=== PATIENT | female | born 1985 | race Caucasian/White ===

== ENCOUNTER → 2020-03-12 11:41 | Outpatient (CLI) | payer OTHER, SELFPAY ==
[2015-04-21 10:24] VITALS: BMI 21.2
[2020-03-12 16:01] LABS: Thyroid Stim Hormone (TSH) 1.56 uIU/mL (0.358-3.74)
== END ==
DX: E06.3 Autoimmune thyroiditis (principal)
CPT/HCPCS: 36415; 84443

== ENCOUNTER 2024-05-01 12:01 | Emergency (ER) | payer OTHER, SELFPAY ==
[2024-05-01 12:02] VITALS: BP 130/99; PULSE 109; RESP 18; TEMP 36.2; O2SAT 100; BMI 25.9
--- NOTE | 2024-05-01 13:28 | EKG12_ITS ---
Test Reason : CHEST TIGHTNESS Blood Pressure : */* mmHG Vent. Rate : 102 BPM Atrial Rate : 102 BPM P-R Int : 134 ms QRS Dur : 72 ms QT Int : 344 ms P-R-T Axes : 41 17 40 degrees QTcB Int : 448 ms Sinus tachycardia Otherwise normal ECG No previous ECGs available Confirmed by CALISTA SANCHEZ MD ([id number]), assignment desk editor RACHELLE MASON ([id number]) on 05/04/2024 11:13:58 AM Referred By: Confirmed By: CALISTA SANCHEZ MD
--- NOTE | 2024-05-01 13:40 | RAD_ITS ---
HISTORY: chest pain. TECHNIQUE: XR Chest 1 View. COMPARISON: 09/05/2009. FINDINGS: CARDIOMEDIASTINAL BORDERS: Cardiac silhouette within normal limits in size. Mediastinal contour unremarkable. LUNGS: Radiographically clear. PLEURA: No pleural effusion or pneumothorax seen. OSSEOUS STRUCTURES: Unremarkable. RAD/Chest 1 View (Portable) IMPRESSION: No acute cardiopulmonary process identified. Electronically Signed: Nereyda Sun MD at 14:09 EDT ,
[2024-05-01 13:50] LABS: Absolute Neutrophil Count 4.4 X10^3/uL (2.0-7.7); Basophil# 0.05 X10^3/uL; Basophil% 0.8 % (0-1); Eosinophil# 0.02 X10^3/uL; Eosinophils% 0.3 % (0-5); Hematocrit 39.7 % (37-47); Lymphocyte % 20.9 % (19-41); Mean Corp Hgb Conc 32.7 g/dL (32-36); Mean Corpuscular Hgb 29.5 pg (27.0-32.0); Mean Corpuscular Volume 90.2 fL (81-99); Mean Platelet Vol. 9.7 fl (6.2-12.0); Monocyte# 0.49 X10^3/uL; Monocyte% 7.9 % (0-10); NRBC Flagged by Analyzer 0 % (0-5); Neutrophil # 4.35 X10^3/uL (2.7-7.7); Neutrophil % 69.8 % (47-70); Platelet Count 222 K/mm3 (150-450); RBC Distribution Width CV 12.7 % (11.6-14.6); RBC Distribution Width SD 41.8 fl (35.1-43.9); White Blood Count 6.2 K/mm3 (4.4-11.0)
[2024-05-01 14:06] LABS: Anion Gap 7 (5-15); BUN 8 mg/dL (7-18); BUN/Creat Ratio 13.6 RATIO (10-20); Calcium,Total 9.2 mg/dL (8.5-10.1); Chloride 107 mmol/L (98-107); Creatinine, Serum 0.59 mg/dL (0.55-1.02); EST Glomerular Filtration Rate 122 mL/min (>60); Est Glom Filt Rate - Afr Amer 148 mL/min (>60); Estimated Creatinine Clearance 119.62 ml/min; Glucose 81 mg/dL (74-106); Potassium 3.8 mmol/L (3.5-5.1); Sodium Level 140 mmol/L (136-145); Troponin-I HS (w/2H Reflex) < 3 pg/mL (3.0-54.0)
[2024-05-01 14:38] VITALS: BP 129/84; PULSE 75; RESP 16; O2SAT 96
--- NOTE | 2024-05-01 14:38 | VDLE_ITS ---
Reason For Study: RLE PAIN RIGHT GSV is normal. CFV is compressible, spontaneous, phasic, competent and demonstrates normal augmentation. FV is compressible, spontaneous, phasic, competent and demonstrates normal augmentation. POP V is compressible, spontaneous, phasic, competent and demonstrates normal augmentation. T/P Trunk is compressible. PTV is compressible. RT PerV is compressible. Procedure This is a venous duplex using B-mode, color flow and spectral Doppler. Exam performed portable in ED. A preliminary report was called and/or faxed to Dr. Root @ 15:15. VL/Venous Duplex US, Unilateral Interpretation Summary Deep veins of the right lower extremity are patent and compressible segmentally . There is no evidence of right lower extremity deep vein thrombosis. The right great sapheno us vein appears patent and compressible segmentally. Ordering Physician: Baljinder Root Referring Physician: ISRRAEL PCP Performed By: Azalia Noe, STU, RVT
--- NOTE | 2024-05-01 14:39 | ED.VIS.CHEST ---
HPI History of Present Illness Chief Complaint: Chest Pain Informant: patient and spouse/S.O. Narrative Narrative: Substernal chest tightness dyspnea 11 AM while in meeting. She felt her heart racing. She was drinking a Celsius drink. She is drinking this before however not as frequent. She typically drinks coffee. No cough. No tobacco history. No history of similar. Also reporting right leg pain for the past week. Had similar symptoms with her chest pain today. Is going on throughout the day. No history of PE or DVT. She did go to [place] 3 months ago. Denies control. Last menstrual period 2 weeks ago. Medical history of hypothyroidism. Prior Similar Symptoms: No CVD Risk Factors: Negative for Hypertension, Diabetes, Hypercholesterolemia, Family History 1' </=55 or Smoking PE Risk Factors: Negative for Recent Immobilization, Prior DVT or PE or OCP + Smoking + >/=35 PFSH PFSH Home Medications ?Medication ?Instructions ?Recorded ?Last Taken ?Type etodolac 300 mg capsule 300 mg PO TIDCM ##30 04/21/15 Unknown Rx Allergy/AdvReac Type Severity Reaction Status Date / Time No Known Allergies Allergy Verified 05/01/24 12:02 Social History Smoking Status: Never smoker ROS ROS ED Constitutional Constitutional ED: Denies chills, fever(s) or sweats Eyes Eyes: Denies change in vision ENT ENT ED: Denies dysphagia or sore throat Cardiovascular Cardiovascular: Reports chest pain, palpitations and racing heartbeat; Denies leg edema Respiratory/Chest Respiratory/Chest: Reports dyspnea; Denies cough or dyspnea on exertion Gastrointestinal Gastrointestinal: Denies abdominal pain, diarrhea, nausea or vomiting Genitourinary Genitourinary ED: Denies dysuria, hematuria or urinary frequency Musculoskeletal Musculoskeletal: Reports extremity pain; Denies back pain or neck pain Integumentary Denies rash or wounds Neurologic Neurologic: Denies headache(s), paresthesias or weakness EXAM Physical Exam Const Vital Signs: 05/01/24 12:02 05/01/24 14:38 05/01/24 15:22 Temperature 97.2 F L Temperature Source Temporal Pulse Rate 109 H 75 77 Respiratory Rate 18 16 17 Blood Pressure 130/99 H 129/84 H 111/66 Blood Pressure Mean 109 99 81 Pulse Ox 100 96 95 Oxygen Delivery Method Room Air Room Air Room Air 05/01/24 15:46 Temperature 98.1 F Temperature Source Pulse Rate 67 Respiratory Rate 18 Blood Pressure 111/66 Blood Pressure Mean 81 Pulse Ox 100 Oxygen Delivery Method Positive well nourished and well developed General Appearance ED: well developed and NAD HEENT Reports moist mucous membranes normocephalic and atraumatic Eyes EOMs intact bilaterally and conjunctivae normal General Eye ED: Yes normal appearance of both eyes Neck no lymphadenopathy and supple General: Negative for tenderness Chest Wall Chest: Negative for tenderness Resp normal respiratory effort and normal air movement Effort and Inspection: symmetric chest movement; Negative for respiratory distress Cardio regular rate, regular rhythm and no murmurs Peripheral Pulses: pulses 2+ throughout GI normal to inspection, nondistended, normoactive bowel sounds and non-tender Palpation: Negative for guarding or rebound tenderness present Back/Spine no CVA tenderness and no thoracic nor lumbar tenderness Extremity normal to inspection Extremity Narrative: Mild tenderness to calf and popliteal on the right. No appreciable swelling noted. Pulses intact distally x 4. General Extremety ED: Yes tenderness; Negative for edema General Extremity: Negative for edema Neuro oriented x3 and no sensory deficits noted Sensorium / Orientation: awake and alert Skin no rashes or lesions noted and no wounds MDM MDM MDM Narrative Medical decision making narrative: Interventions / MDM: Differential diagnosis: Palpitations, atypical chest pain Diagnosis considered but do not suspect: Pulm embolus however D-dimer negative. DVT however ultrasound negative. My EKG interpretation: No ST changes isolated T wave flattening leads III. QTc 448. Imaging independently reviewed and interpreted by myself: 1 view chest x-ray: No acute process also read by radiology. Right lower extremity ultrasound: No acute process. External documents reviewed: N/A Test considered but not ordered:N/A ED course: Patient workup started from triage due to busy department. EKG sinus tachycardia has normal heart rate during my exam.She had cardiac labs with troponin returned less than 3. This is negative for ACS concerns per algorithm. However she is tachycardic on EKG she has right leg pain low risk Wells criteria for PE. I will add a D-dimer. Will obtain right lower extremity ultrasound for further evaluation D-dimer negative ultrasound right lower extremity negative. Remains symptom-free. Discussed decreasing caffeine intake as this can cause palpitations. She will follow-up with her PCP outpatient evaluation with return precautions. All questions are answered. Re-evaluation: stable Disposition discussed with patient/family/significant other: Patient and significant other Case discussed with consulting clinician: N/A This note was generated with [employer] dictation software. It may contain incorrect words, spelling, and punctuation that were not noted in checking the note before signing. Sinus 102, Lab Data Attestation: I reviewed the patient's lab results. Labs: Laboratory Results - last 24 hr 05/01/24 05/01/24 13:30 13:35 WBC 6.2 RBC 4.40 Hgb 13.0 Hct 39.7 MCV 90.2 MCH 29.5 MCHC 32.7 RDW Std Deviation 41.8 RDW Coeff of Tess 12.7 Plt Count 222 MPV 9.7 Immature Gran % (Auto) 0.300 Neut % (Auto) 69.8 Lymph % (Auto) 20.9 [place] % (Auto) 7.9 Eos % (Auto) 0.3 Baso % (Auto) 0.8 Absolute Neuts (auto) 4.4 Absolute Lymphs (auto) 1.30 Nucleated RBC % 0 D-Dimer Quant (PE/DVT) < 0.27 L Sodium 140 Potassium 3.8 Chloride 107 Carbon Dioxide 25.0 Anion Gap 7 BUN 8 Creatinine 0.59 Estim Creat Clear Calc 119.62 Est GFR (MDRD) Af Amer 148 Est GFR (MDRD) Non-Af 122 BUN/Creatinine Ratio 13.6 Glucose 81 Calcium 9.2 Troponin I High Sens < 3 L Radiography Diagnostic Testing: Clinical Impression(s) from Imaging Studies Chest X-Ray 05/01/24 13:40 IMPRESSION: No acute cardiopulmonary process identified. Electronically Signed: Nereyda Sun MD at 14:09 EDT , Venous Doppler Study 05/01/24 14:38 Interpretation Summary Deep veins of the right lower extremity are patent and compressible segmentally. There is no evidence of right lower extremity deep vein thrombosis. The right great saphenous vein appears patent and compressible segmentally. Ordering Physician: Baljinder Root Referring Physician: ISRRAEL PCP Performed By: Azalia Noe RDCS, RVT Discharge Plan Triage Chief Complaint: Chest Pain Other Complaint: Lower Extremity Injury ED Provider: Baljinder Root Dx/Rx/DC Orders Clinical Impression: Chest pain, Palpitations, Pain in right leg Instructions: ED Chest Pain, Uncertain Cause Prescriptions: No Action etodolac 300 MG capsule 300 mg PO TIDCM Qty: 30 0RF Rx Instructions: with food Primary Care Provider: [facility] Referrals: [facility] [Other] - 3-5 Days Activity Restrictions/Additional Instructions: Cardiac workup negative your D-dimer negative. Right leg ultrasound negative for blood clots. Decrease caffeine use as this can cause palpitations. Monitor symptoms. If any worsening symptoms or returns, return to ED for reevaluation. Otherwise follow-up your doctor for further testing as an outpatient as needed. Print Language: Urdu Disposition Disposition: Home, Self Care Discharge Date/Time: 05/01/24 15:47
[2024-05-01 14:57] LABS: D-Dimer Quantitative (DVT/PE) < 0.27 FEU/ug/m (0.27-0.49)
[2024-05-01 15:22] VITALS: BP 111/66; PULSE 77; RESP 17; O2SAT 95
[2024-05-01 15:45] LABS: Reflex Troponin-HS? (from REC) Y
[2024-05-01 15:46] VITALS: BP 111/66; PULSE 67; RESP 18; TEMP 36.7; O2SAT 100
== END 2024-05-01 15:47 | disposition home or self-care (01) ==
PROVIDERS: Emergency Provider Emergency Medicine; Visit Provider Emergency Medicine
DX: R07.89 Other chest pain (principal); R00.2 Palpitations; M79.604 Pain in right leg; E03.9 Hypothyroidism, unspecified
CPT/HCPCS: 71045; 80048; 84484; 85025; 85379; 93005; 93971; 99285; A4216

== ENCOUNTER → 2024-11-01 | Outpatient (CLI) | payer OTHER, SELFPAY ==
[2024-11-01 16:50] LABS: Absolute Lymphocyte Count 2.44 X10^3/uL (0.83-4.51); Absolute Neutrophil Count 5.3 X10^3/uL (2.0-7.7); Basophil# 0.05 X10^3/uL; Basophil% 0.6 % (0-1); Eosinophil# 0.15 X10^3/uL; Eosinophils% 1.7 % (0-5); Hematocrit 39.3 % (37-47); Hemoglobin 13.3 g/dL (12.0-15.0); Lymphocyte # 2.44 X10^3/ul (0.83-4.51); Lymphocyte % 27.8 % (19-41); Mean Corp Hgb Conc 33.8 g/dL (32-36); Mean Corpuscular Hgb 29.9 pg (27.0-32.0); Mean Corpuscular Volume 88.3 fL (81-99); Mean Platelet Vol. 9.8 fl (6.2-12.0); Monocyte# 0.79 X10^3/uL; NRBC Flagged by Analyzer 0 % (0-5); Neutrophil # 5.32 X10^3/uL (2.7-7.7); Neutrophil % 60.6 % (47-70); Platelet Count 294 K/mm3 (150-450); RBC Distribution Width CV 12.3 % (11.6-14.6); RBC Distribution Width SD 40.1 fl (35.1-43.9); Red Blood Count 4.45 M/mm3 (4.2-5.4); White Blood Count 8.8 K/mm3 (4.4-11.0)
[2024-11-01 17:43] LABS: ALB/GLOB Ratio 1.5 RATIO (0.9-2.4); AST(SGOT) 19 U/L (<=31); Alanine Aminotransfer ALT/SGPT 16 U/L (<=34); Albumin, Serum 4.6 g/dL (3.5-5.0); Alkaline Phosphatase 71 U/L (35-104); Anion Gap 11 (5-15); BUN 15 mg/dL (4-19); BUN/Creat Ratio 21.3 RATIO (10-20); Calcium,Total 9.5 mg/dL (7.6-11.0); Carbon Dioxide 23.6 mmol/L (21.0-32.0); Chloride 106 mmol/L (98-108); Creatinine, Serum 0.69 mg/dL (0.70-1.20); EST Glomerular Filtration Rate 115 (>60); Glucose 94 mg/dL (70-99); Potassium 3.8 mmol/L (3.3-5.1); Protein, Total 7.6 g/dL (5.9-8.4); Sodium Level 140 mmol/L (133-145); Total Bilirubin 0.18 mg/dL (0.00-1.30)
== END | disposition home or self-care (01) ==
LOC: LAB 16:03
PROVIDERS: PCP Internal Medicine; Referring Provider Student in an Organized Health Care Education/Training Program; Visit Provider Student in an Organized Health Care Education/Training Program
DX: R14.0 Abdominal distension (gaseous) (principal); R10.9 Unspecified abdominal pain
CPT/HCPCS: 36415; 80053; 82784; 83516; 85025; 86255

== ENCOUNTER 2024-12-27 10:50 | Day surgery (SDC) | payer OTHER, SELFPAY ==
[2024-12-27] VITALS (8 sets, daily range): BP systolic 92–118; BP diastolic 63–70; PULSE 65–93; RESP 16; TEMP 23.8–36.9; O2SAT 97–100; BMI 24.5
[2024-12-27 11:15] LABS: Internal QC Validated? YES +Cl - CLEAR BKGD; Pregnancy, Urine Negative Negative
[2024-12-27] MEDS: Lactated Ringers 1,000 ML 15 ML IV (11:32)
--- NOTE | 2024-12-27 11:40 | PCM.HP.STD ---
[facility] - General General Date of Admission: 12/27/24 Date of Service: 12/27/24 Chief Complaint: abdominal pain and bloating [facility] Narrative VIRGINIA BRODERICK, is a 39 F who presents with the Chief Complaint: abd bloating Over the past 6 months patient has noticed abd bloating. This started out just after a meal but now she has bloating all the time. She has not noticed any specific triggering foods. She also endorses heartburn during but night but does not take PPI. On occasion she will wake up with nausea. She has a family hx of celiac disease in her younger sister. Pt father was diagnosed with colon cancer about two years ago at age 59. He had colectomy and is now undergoing chemotherapy. Pt has never had a colonoscopy. She denies constipation, diarrhea or blood in her stool. [facility] Medical History Wears contact lenses Depression Anxiety Marijuana use Alcohol use Thyroid disease Low iron Migraine headache Heartburn Non-smoker Home Medications ?Medication ?Instructions ?Recorded ?Last Taken ?Type levothyroxine 100 mcg tablet 100 mcg PO QHS 12/25/24 12/25/24 History (Synthroid) sertraline 50 mg tablet 50 mg PO QHS 12/25/24 12/25/24 History Allergy/AdvReac Type Severity Reaction Status Date / Time No Known Allergies Allergy Verified 12/27/24 11:26 Surgical History Hx of oral surgery Social History Smoking Status: Never smoker ROS Constitutional Constitutional: Denies fatigue, fever(s), poor appetite, weight gain or weight loss Gastrointestinal Gastrointestinal: Denies belching, bloating, change in bowel habits, change in stool character, chewing difficulty, coffee ground emesis, constipation, cramping, diarrhea, dyspepsia, dysphagia, early satiety, excessive flatus, fecal incontinence, heartburn, hematemesis, hematochezia, hemorrhoids, loose stools, melena, nausea, odynophagia, rectal bleeding, tenesmus, vomiting or weight changes Vital Signs Vital Signs Vital Signs: 12/27/24 11:27 12/27/24 11:27 Temperature 98.5 F Temperature Source Temporal Pulse Rate 89 Respiratory Rate 16 Respiratory Pattern Normal Blood Pressure 118/70 Blood Pressure Mean 86 Blood Pressure Source Monitor Blood Pressure Position Sitting Blood Pressure Location Left Arm Pulse Ox 99 Oxygen Delivery Method Room Air Weight Weight: 138 lb 14.259 oz Body Mass Index (BMI) 24.5 Physical Exam Const alert, oriented x3, no apparent distress and healthy appearing General Appearance: cooperative GI normal to inspection, nondistended, normoactive bowel sounds, soft to palpation, non-tender and non-distended Percussion: normal to percussion Rectal Exam: deferred Results Lab / Micro Data Labs: Laboratory Results - last 24 hr 12/27/24 11:00: Urine Test Negative Assessment & Plan Assessment/Plan (1) Abdominal pain: (2) Bloating: PLAN: Assessment and Plan Assessment and Plan (1) Bloating: Status: Acute Plan: This is a 39 yo female pt here today for evaluation of bloating and abd pain. Pt started to notice these symptoms after eating about 6 months ago and since then it has progressed to her being bloated daily. She has heartburn on a regular basis typically in the evening. She denies constipation, diarrhea, blood in her stool or unintentional weight loss. She endorses a family hx of both celiac disease (sister) and colon cancer (father age 59). Due to her family hx and symptoms she will undergo EGD and colonoscopy. I have concern for celiac disease or inflammation in her upper GI tract. I will also order celiac panel, CBC and CMP. Pt agreeable to plan. -EGD and colonoscopy -Celiac panel -f/u after procures (2) Abdominal pain: Status: Acute Orders: Orders Celiac Disease Profile Today R10.9 - Unspecified abdominal pain, R14.0 - Abdominal distension (gaseous) CBC W/Diff, Automated Today R10.9 - Unspecified abdominal pain, R14.0 - Abdominal distension (gaseous) Comprehensive Metabolic Profil Today R10.9 - Unspecified abdominal pain, R14.0 - Abdominal distension (gaseous)
--- NOTE | 2024-12-27 11:58 | PCM.PRE.AN2 ---
ASA Classification* ASA Classification ASA Classification: 2 Assessment & Plan Anesthesia* Anesthesia Assessment Anesthesia Assessment: Discussed sedation and/or anesthesia options, risks, benefits, and alternatives with patient/parents/legal guardian/POA. Questions invited. The patient/parents/legal guardian/POA seems to understand and agrees to proceed with anesthesia plan. Reviewed the physical assessment, medical history, allergy history and patient home medications list prior to surgery/procedure/anesthetic and documented any changes. Performed airway and anesthesia risk assessments. Anesthesia Type Anesthesia Type: MAC History Source History Obtained from:: Patient and Chart Anesthesia Focused Assessment* Temperature: 98.5 F Pulse Rate: 89 Blood Pressure: 118/70 Respiratory Rate: 16 Pulse Ox: 99 Oxygen Delivery Method: Room Air Airway Assessment Mouth opens: >3 cm Mallampati Score: IV Teeth Condition: Chipped/Broken (Top right tooth is chipped.) and Missing (Patient is missing tooth left lower jaw.) Neck Range of motion (ROM): Full ROM Labs Anesthesia Preop lab: CBC WBC 8.8 K/mm3 (4.4-11.0) 11/01/24 16:16 11/01/24 RBC 4.45 M/mm3 (4.2-5.4) 11/01/24 16:16 11/01/24 Hgb 13.3 g/dL (12.0-15.0) 11/01/24 16:16 11/01/24 Hct 39.3 % (37-47) 11/01/24 16:16 11/01/24 Plt Count 294 K/mm3 (150-450) 11/01/24 16:16 11/01/24 CHEMISTRY Potassium 3.8 mmol/L (3.3-5.1) 11/01/24 16:16 11/01/24 Sodium 140 mmol/L (133-145) 11/01/24 16:16 11/01/24 BUN 15 mg/dL (4-19) 11/01/24 16:16 11/01/24 Creatinine 0.69 mg/dL (0.70-1.20) L 11/01/24 16:16 11/01/24 Glucose 94 mg/dL (70-99) 11/01/24 16:16 11/01/24 TSH 1.56 uIU/mL (0.358-3.74) 03/12/20 11:55 03/12/20 COAG Urine Test Negative Negative 12/27/24 11:00 12/27/24 Pre-Assessment Diagnosis/Proposed Procedure Planned Operative Procedure(s): EGD/CSCOPE Anesthesia History Anesthesia History - graduate advisor: Anesthesia History - graduate advisor Hx Hospitalization No 12/25/24 15:07 Any Problems With Anesthesia No 12/25/24 15:07 Cholinesterase deficiency No 12/25/24 15:07 You/Your Family Experience No 12/25/24 15:07 fever (hyperthermia) with Relationship Recent Exposure to Contagious No 12/27/24 11:27 Disease Does patient have nerve No 12/25/24 15:07 stimulator Patient instructed to have device shut off --Does patient have Pacemaker No 12/27/24 11:27 or ICD? When Was Last Pacemaker Check QUESTION #4 FULL TEXT: You/Your Family Experience fever (hyperthermia) with Anesthesia Last Oral Intake Last Oral intake: Last Oral Intake NPO since 09:00 12/27/24 11:27 Meds taken in AM with sips of No 12/27/24 11:27 water? Meds patient instructed to take am of surgery Any additional information?: Yes NPO since: 09:00 (Patient finished prep at 9 AM. Along with some water.) Meds taken in AM with sips of water?: No PONV PONV - graduate advisor: PONV - graduate advisor Female Yes 12/25/24 15:07 HX of Motion Sickness No 12/25/24 15:07 HX of N/V After Surgery No 12/25/24 15:07 Non-Smoker No 12/25/24 15:07 Duration of Surgery greater No 12/25/24 15:07 than 60 minutes Number of Risk Factors 1 12/25/24 15:07 PONV Score Low Risk 12/25/24 15:07 Height & Weight Height & Weight: Anesthesia: Height & Weight Height 5 ft 3 in 12/27/24 11:27 Weight: 63 kg 12/27/24 11:27 Body Mass Index (BMI) 24.5 12/27/24 11:27 Respiratory Assessment Respiratory Assessment - graduate advisor: Respiratory Tract Infection Hx - graduate advisor Hx Respiratory Tract Infection No 12/25/24 15:07 STOP Sleep Apnea STOP Sleep Apnea - graduate advisor: STOP Sleep Apnea - graduate advisor Hx Hypertension No 12/25/24 15:07 Hx Sleep Apnea No 12/25/24 15:07 CPAP BIPAP Do you snore loudly (louder No 12/25/24 15:07 than talking or can be heard Do you often feel tired/ Yes 12/25/24 15:07 fatigued/ sleepy during daytime? Has anyone observed you stop No 12/25/24 15:07 breathing during sleep? STOP Results Negative 12/25/24 15:07 QUESTION #5 FULL TEXT : Do you snore loudly (louder than talking or can be heard through closed doors)? 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 Specify any problems Hx of Preganancy in last 3 No 12/25/24 15:07 Months Nurse Filling Out Transfusion DSCHRIBER 12/25/24 15:07 & Questions: Date: 12/25/24 12/25/24 15:07 Time: 15:08 12/25/24 15:07 Patient unable to answer at this time (ie. confused, unrespo /Reproduction History /Reproductive History - graduate advisor: /Reproductive Hx- graduate advisor Hx Now No 12/25/24 15:07 Gestational Age (in weeks): EDC: Hx Hx Para Hx Section SAB No 12/25/24 15:07 Active Medications Active Medications: Current Medications Generic Name Dose Route Start Last Admin Trade Name Freq PRN Reason Stop Dose Admin Lactated Ringer's 1,000 mls @ 15 mls/hr 12/27/24 11:15 12/27/24 11:32 IV 15 mls/hr .Q48H BRITTANY Administration PFSH Medical History Wears contact lenses Depression Anxiety Marijuana use Alcohol use Thyroid disease Low iron Migraine headache Heartburn Non-smoker Home Medications ?Medication ?Instructions ?Recorded ?Last Taken ?Type levothyroxine 100 mcg tablet 100 mcg PO QHS 12/25/24 12/25/24 History (Synthroid) sertraline 50 mg tablet 50 mg PO QHS 12/25/24 12/25/24 History Allergy/AdvReac Type Severity Reaction Status Date / Time No Known Allergies Allergy Verified 12/27/24 11:26 Surgical History Hx of oral surgery Social History Smoking Status: Never smoker Review of Systems (Anesthesia) ROS Narrative System reviewed and no additional complaints, except as documented.
--- NOTE | 2024-12-27 12:00 | EGD_PTH ---
PATIENT: VIRGINIA BRODERICK LOC: EN U#:[id number] AGE/SX: 39/F ROOM: RE12/27/[address]: Dr. Gabriel Meyer DO : 1985 BED: DIS: 12/27/2024 SPEC #: [id number] RECD: 12/27/24 13:15 STATUS: MIGUELINA YOUNG #: [id number] ROSALINA: 12/27/24 12:[address]: Gabriel Meyer DEPT: SURGICAL PATHOLOGY RECD BY: Yayo Banda ENTERED: 12/27/24 13:51 SP TYPE: EGD BIOPSY ALBA DR: Dr. Wily Garsia MD Tissues: A - Duodenum, NOS B - Gastric mucous membrane C - Gastric mucous membrane D - Ileum, NOS E - COLON BIOPSY Procedures: Surgery Specimen Level IV HEADER OPERATION: Colonoscopy with biopsy, EGD with biopsy PRE-OP DIAGNOSIS: Abdominal pain and bloating TISSUE SUBMITTED: A- Duodenum biopsy, B- Gastric body biopsy, C- Gastric antrum biopsy, D- Terminal ileum biopsy, E- Random colon biopsy MICROSCOPIC DIAGNOSIS A. Duodenum, biopsy: - Normal villous architecture with Ronnie gland hyperplasia. - Negative for increased intraepithelial lymphocytes. B. Gastric body, biopsy: - Oxyntic mucosa with no specific pathologic change. - Negative for Helicobacter-like organisms (H&E). C. Gastric antrum, biopsy: - Antral and oxyntic mucosa with features of reactive gastropathy. -- Negative for Helicobacter-like organisms (H&E). D. Terminal ileum, biopsy: - No specific pathologic change. E. Colon, random biopsy: - No specific pathologic change. MICROSCOPIC DESCRIPTION Slides are reviewed. GROSS DESCRIPTION A. Received in fixative is one container labeled with the patient's name and designated Duodenum biopsy. The specimen consists of one irregular fragment of light muñoz soft tissue that measures 0.5 cm. The specimen is totally submitted in one cassette. B. Received in fixative is one container labeled with the patient's name and designated Gastric body biopsy. The specimen consists of three irregular fragments of light muñoz soft tissue that in aggregate measure <0.1 to 0.4 cm. The specimen is totally submitted in one cassette. C. Received in fixative is one container labeled with the patient's name and designated Gastric antrum biopsy. The specimen consists of two irregular fragments of light muñoz soft tissue that in aggregate measure 0.3 and 0.5 cm. The specimen is totally submitted in one cassette. D. Received in fixative is one container labeled with the patient's name and designated Terminal ileum biopsy. The specimen consists of three irregular fragments of light muñoz soft tissue that in aggregate measure 0.3 to 0.4 cm. The specimen is totally submitted in one cassette. E. Received in fixative is one container labeled with the patient's name and designated Random colon biopsy. The specimen consists of two irregular fragments of light muñoz soft tissue that in aggregate measure 0.4 and 0.5 cm. The specimen is totally submitted in one cassette. 12/27/2024 CPT:59905b3
--- NOTE | 2024-12-27 13:00 | PCM.POST.ANE ---
Anesthesia: Postop Eval I Current Vital Signs Temperature: 97.8 F Pulse Rate: 70 Blood Pressure: 96/67 Respiratory Rate: 16 Pulse Ox: 97 Assessment Airway patent: Yes Spontaneous unlabored respirations: Yes nausea: No Vomiting: No Anesthesia Complication: No Fluid Hydration Crystalloid volume administer (ml): 300 Total IV fluid infused: 300 Progress Note Anesthesia document: Postop Eval 1 completed: Yes
--- NOTE | 2024-12-27 13:01 | OP.CCLET_ITS ---
12/27/2024 Wily Garsia Md Re : Upper GI endoscopy procedure for Darling Jones Dear Dr. Garsia This procedure was performed on December. My impressions and recommendations are as follows: Impressions : - Normal esophagus. - Erythematous mucosa in the gastric body and antrum. Biopsied. - Erythematous duodenopathy. Biopsied. Recommendations : - Discharge patient to home. - Resume previous diet. - Continue present medications. - Await pathology results. My findings are described in the full procedure note, which is enclosed. If I can be of further assistance, please feel free to contact me at . Sincerely, Gabriel Meyer, 12/27/2024 1:01:08 PM This report has been signed electronically.
--- NOTE | 2024-12-27 13:01 | OP.EGD_ITS ---
Patient Name: Darling Jones Procedure Date: 12/27/2024 12:28 PM Date of : 1985 Age: 39 Procedure: Upper GI endoscopy Indications: Epigastric abdominal pain Providers: Gabriel Meyer DO Medicines: Monitored Anesthesia Care Patient Profile: This is a 39 year old female. Refer to note in patient chart for documentation of history and physical. Patient has symptoms of chronic abdominal cramping, chronic epigastric abdominal pain, chronic dyspepsia and chronic nausea. Complications: No immediate complications. Procedure: Pre-Anesthesia Assessment: - Prior to the procedure, a History and Physical was performed, and patient medications and allergies were reviewed. The patient is competent. The risks and benefits of the procedure and the sedation options and risks were discussed with the patient. All questions were answered and informed consent was obtained. Patient identification and proposed procedure were verified by the physician in the pre-procedure area. Mental Status Examination: alert and oriented. Airway Examination: normal oropharyngeal airway and neck mobility. Respiratory Examination: clear to auscultation. CV Examination: normal. Prophylactic Antibiotics: The patient does not require prophylactic antibiotics. Prior Anticoagulants: The patient has taken no anticoagulant or antiplatelet agents except for NSAID medication. ASA Grade Assessment: II - A patient with mild systemic disease. After reviewing the risks and benefits, the patient was deemed in satisfactory condition to undergo the procedure. The anesthesia plan was to use monitored anesthesia care (MAC). Immediately prior to administration of medications, the patient was re-assessed for adequacy to receive sedatives. The heart rate, respiratory rate, oxygen saturations, blood pressure, adequacy of pulmonary ventilation, and response to care were monitored throughout the procedure. The physical status of the patient was re-assessed after the procedure. After obtaining informed consent, the endoscope was passed under direct vision. Throughout the procedure, the patient's blood pressure, pulse, and oxygen saturations were monitored continuously. The colonoscope was introduced through the mouth, and advanced to the fourth part of the duodenum. Small bowel enteroscopy was deemed necessary. The upper GI endoscopy was accomplished without difficulty. The patient tolerated the procedure well. Scope In: 12:36:56 PM Scope Out: 12:41:14 PM Total Procedure Duration Time 0 hours 4 minutes 18 seconds Findings: The examined esophagus was normal. Patchy mildly erythematous mucosa without bleeding was found in the gastric body and in the gastric antrum. Biopsies were taken with a cold forceps for histology. Verification of patient identification for the specimen was done. Estimated blood loss was minimal. Patchy mildly erythematous mucosa without active bleeding and with no stigmata of bleeding was found in the first portion of the duodenum, in the second portion of the duodenum and in the third portion of the duodenum. Biopsies were taken with a cold forceps for histology. Verification of patient identification for the specimen was done. Estimated blood loss was minimal. Impression: - Normal esophagus. - Erythematous mucosa in the gastric body and antrum. Biopsied. - Erythematous duodenopathy. Biopsied. Recommendation: - Discharge patient to home. - Resume previous diet. - Continue present medications. - Await pathology results. Procedure Code(s): --- Professional --- 35002, Small intestinal endoscopy, enteroscopy beyond second portion of duodenum, not including ileum; with biopsy, single or multiple CPT copyright 2021 [employer]. All rights reserved. The codes documented in this report are preliminary and upon remote medical coder review may be revised to meet current compliance requirements. Gabriel Meyer DO 12/27/2024 1:01:08 PM This report has been signed electronically. Number of Addenda: 0 Note Initiated On: 12/27/2024 12:28 PM
--- NOTE | 2024-12-27 13:04 | OP.CCLET_ITS ---
12/27/2024 Wily Garsia Md Re : Colonoscopy procedure for Darling Jones Dear Dr. Garsia This procedure was performed on December. My impressions and recommendations are as follows: Impressions : - Congested mucosa in the recto-sigmoid colon, in the sigmoid colon and in the ascending colon. Biopsied. - Congested mucosa in the terminal ileum. Biopsied. Recommendations : - Discharge patient to home. - Resume previous diet. - Continue present medications. - Await pathology results. - Repeat colonoscopy is recommended. The colonoscopy date will be determined after pathology results from today's exam become available for review. My findings are described in the full procedure note, which is enclosed. If I can be of further assistance, please feel free to contact me at . Sincerely, Gabriel Meyer, 12/27/2024 1:04:10 PM This report has been signed electronically.
--- NOTE | 2024-12-27 13:04 | OP.COLON_ITS ---
Patient Name: Darling Jones Procedure Date: 12/27/2024 12:41 PM Date of : 1985 Age: 39 Procedure: Colonoscopy Indications: Generalized abdominal pain, Clinically significant diarrhea of unexplained origin, Suspected irritable bowel syndrome, Mixed irritable bowel syndrome Providers: Gabriel Meyer DO Medicines: Monitored Anesthesia Care Patient Profile: This is a 39 year old female. Refer to note in patient chart for documentation of history and physical. Patient has symptoms of chronic abdominal cramping, chronic epigastric abdominal pain, chronic dyspepsia and chronic nausea. Last Colonoscopy: none. The patient's first colonoscopy is today. Complications: No immediate complications. Procedure: Pre-Anesthesia Assessment: - Prior to the procedure, a History and Physical was performed, and patient medications and allergies were reviewed. The patient is competent. The risks and benefits of the procedure and the sedation options and risks were discussed with the patient. All questions were answered and informed consent was obtained. Patient identification and proposed procedure were verified by the physician in the pre-procedure area. Mental Status Examination: alert and oriented. Airway Examination: normal oropharyngeal airway and neck mobility. Respiratory Examination: clear to auscultation. CV Examination: normal. Prophylactic Antibiotics: The patient does not require prophylactic antibiotics. Prior Anticoagulants: The patient has taken no anticoagulant or antiplatelet agents except for NSAID medication. ASA Grade Assessment: II - A patient with mild systemic disease. After reviewing the risks and benefits, the patient was deemed in satisfactory condition to undergo the procedure. The anesthesia plan was to use monitored anesthesia care (MAC). Immediately prior to administration of medications, the patient was re-assessed for adequacy to receive sedatives. The heart rate, respiratory rate, oxygen saturations, blood pressure, adequacy of pulmonary ventilation, and response to care were monitored throughout the procedure. The physical status of the patient was re-assessed after the procedure. After I obtained informed consent, the scope was passed under direct vision. Throughout the procedure, the patient's blood pressure, pulse, and oxygen saturations were monitored continuously. The colonoscope was introduced through the anus and advanced to the terminal ileum. The colonoscopy was performed without difficulty. The patient tolerated the procedure well. The quality of the bowel preparation was adequate. The terminal ileum, ileocecal valve, appendiceal orifice, and rectum were photographed. Scope In: 12:42:17 PM Scope Withdrawal Time 0 hours 8 minutes 26 seconds Scope Out: 12:53:44 PM Total Procedure Duration Time 0 hours 11 minutes 27 seconds Findings: The perianal and digital rectal examinations were normal. An area of mildly congested mucosa was found in the recto-sigmoid colon, in the sigmoid colon and in the ascending colon. Biopsies were taken with a cold forceps for histology. Verification of patient identification for the specimen was done. Estimated blood loss was minimal. A patchy area of the terminal ileum was congested. Biopsies were taken with a cold forceps for histology. Verification of patient identification for the specimen was done. Estimated blood loss was minimal. Impression: - Congested mucosa in the recto-sigmoid colon, in the sigmoid colon and in the ascending colon. Biopsied. - Congested mucosa in the terminal ileum. Biopsied. Recommendation: - Discharge patient to home. - Resume previous diet. - Continue present medications. - Await pathology results. - Repeat colonoscopy is recommended. The colonoscopy date will be determined after pathology results from today's exam become available for review. Procedure Code(s): --- Professional --- 83482, Colonoscopy, flexible; with biopsy, single or multiple CPT copyright 2021 [employer]. All rights reserved. The codes documented in this report are preliminary and upon leadership development consultant review may be revised to meet current compliance requirements. Gabriel Meyer DO 12/27/2024 1:04:10 PM This report has been signed electronically. Number of Addenda: 0 Note Initiated On: 12/27/2024 12:41 PM
--- NOTE | 2024-12-27 18:09 | POSTOPAN2_ITS ---
Anesthesia Postop Eval I Sum Postop Eval Completion status Anesthesia document: Postop Eval 1 completed: Yes Anesthesia Postop Eval I Summary Anesthesia Postop Eval I Summary: Anesthesia Postop Eval I: Assessment Summary Airway patent Yes 12/27/24 13:00 EYE GLASS [email or web address] Spontaneous unlabored Yes 12/27/24 13:00 EYE GLASS [email or web address] respirations Mental status nausea No 12/27/24 13:00 EYE GLASS [email or web address] Vomiting No 12/27/24 13:00 EYE GLASS [email or web address] Anesthesia Postop Eval I: Fluid Summary Crystalloid volume administer 300 12/27/24 13:00 EYE GLASS [email or web address] (ml) Colloids volume administered ( ml) Blood Product volume administered (ml) Total IV fluid infused 300 12/27/24 13:00 EYE GLASS [email or web address] Anesthesia Postop Eval I: Summary Notes Anesthesia Complication No 12/27/24 13:00 EYE GLASS [email or web address] Anesthesia Complication Comment: Post-operative progress note Anesthesia: Postop Eval II Evaluation Mental status: Awake Pain Level: 0 nausea: No Vomiting: No
--- NOTE | 2024-12-27 18:09 | PCM.POSTANE2 ---
Anesthesia Postop Eval I Sum Postop Eval Completion status Anesthesia document: Postop Eval 1 completed: Yes Anesthesia Postop Eval I Summary Anesthesia Postop Eval I Summary: Anesthesia Postop Eval I: Assessment Summary Airway patent Yes 12/27/24 13:00 AUTOMOTIVE SALES [email or web address] Spontaneous unlabored Yes 12/27/24 13:00 [employer]OMOTIVE SALES [email or web address] respirations Mental status nausea No 12/27/24 13:00 AUTOMOTIVE SALES [email or web address] Vomiting No 12/27/24 13:00 AUTOMOTIVE SALES [email or web address] Anesthesia Postop Eval I: Fluid Summary Crystalloid volume administer 300 12/27/24 13:00 AUTOMOTIVE SALES [email or web address] (ml) Colloids volume administered ( ml) Blood Product volume administered (ml) Total IV fluid infused 300 12/27/24 13:00 AUTOMOTIVE SALES [email or web address] Anesthesia Postop Eval I: Summary Notes Anesthesia Complication No 12/27/24 13:00 AUTOMOTIVE SALES [email or web address] Anesthesia Complication Comment: Post-operative progress note Anesthesia: Postop Eval II Evaluation Mental status: Awake Pain Level: 0 nausea: No Vomiting: No
--- OUTSIDE RECORDS SUMMARY | 2024-12-27 21:15 | XMS RPT_ITS | CCD ---
Author Organization [facility] Care Team Providers Care Lockstitch Front Maker Name Role Phone Fercho Lane Unavailable Unavailable Unavailable Unavailable Unavailable Fercho Lane Referring Unavailable Fercho Lane Attending Unavailable Fercho Lane Primary Care Unavailable Elizabetha, Fercho Watkins Primary Care Unavailable Fercho Lane Referring Unavailable Fercho Lane Attending Unavailable Roldan FELICIANO, Rhiannon Samayoa Primary Care Provider Fercho Lane MD Primary Care Provider [phone] MD Unavailable PARAM, RHIANNON Referring Unavailable ROLDAN, RHIANNON SAMAYOA Primary Care Unavailabl e ROLDAN, RHIANNON DANITA Primary Care Unavailabl e PARAM, RHIANNON Referring Unavailable PARAM, RHIANNON Attending Unavailable ROLDAN, RHIANNON SAMAYOA Primary Care Unavailabl e PARAM, RHIANNON Attending Unavailable ROLDAN, RHIANNON SAMAYOA Primary Care Unavailabl e DOMINGO, FERCHO D Attending Unavailable ELIZABETHAFERCHO Primary Care Unavailable FERCHO LANE MD Attending Unavailable FERCHO LANE MD Primary Care Unavailable FERCHO LANE Referring Unavailable ELIZABETHA, FERCHO Watkins Primary Care Unavailable Fercho Lane MD Primary Care Provider Fercho Lane Referring Unavailable Friend, Gabriel Attending Unavailable Munlucilaa, Valjohnie Primary Care Unavailable Munlucilaa, Valji Primary Care Unavailable Chandrika Uriostegui Attending Unavailable Chandrika Uriostegui Referring Unavailable ARNEL MENCHACA Primary Care Unavailable Baljinder Root Attending Unavailable Chandrika Uriostegui Attending Unavailable Baljinder Root Referring Unavailable Darrion Brady Attending Unavailable Chandrika Solis Attending Provider Dr. Fercho Lane MD Primary Care Provider [phone] Chandrika Solis Referring Provider Dr. Fercho Lane MD Referring Provider Friend Dr. Gabriel RAM Attending Provider Friend Dr. Gabriel RAM Other Provider Medications Current Medications Medication Drug Class(es) Dates Sig (Normalized) Sig (Original) azithromycin 250 mg oral tablet (2 sources) Macrolide Antimicrobial Start: 10-25-2022 End: 10-30-2022 azithromycin (Zithromax) 250 mg tablet Indications: Sinusitis, unspecified chronicity, unspecified location Take 2 tablets (500 mg) by mouth once daily for 1 day, THEN 1 tablet (250 mg) once daily for 4 days. Take 2 tabs (500 mg) by mouth today, than 1 daily for 4 days.. 6 tablet 0 10/25/2022 10/30/2022 Active Start: 05-31-2022 Azithromycin 2 50 MG Oral Tablet TAKE DIRECTED. Quantity: 1 Refills: 0 Ordered: 31-May-[address] MD Start : 31-May-2022 Active DULoxetine 30 mg delayed release oral capsule (1 source) Serotonin and Norepinephrine Reuptake Inhibitor Start: 10-25-2022 take 1 capsule by mouth once daily DULoxetine (Cymbalta) [address] capsule Indications: Moderate episode of recurrent major depressive disorder (CMS/HCC) Take 1 capsule (30 mg) by mouth once daily. Do not crush or chew. 90 capsule 1 10/25/2022 Active Start: 10-25-2022 take 1 capsule by mo uth once daily DULoxetine (Cymbalta) [address] capsule Indications: Moderate episode of recurrent major depressive disorder (CMS/HCC) Take 1 capsule (30 mg) by mouth once daily. Do not crush or chew. 90 capsule 1 10/25/2022 Active levothyroxine sodium 0.1 mg oral tablet (20 sources) l-Thyroxine Start: 12-25-2024 take 1 tablet by mouth at bedtime Levothyroxine (Synthroid) 100 mcg tablet Active 100 ug PO AT BEDTIME December 25, 2024 12:00am Start: 12-23-2023 take 1 tablet by savanah th once daily before mealtime levothyroxine (Synthroid, Levoxyl) 100 mcg tablet Indications: Autoimmune thyroiditis Take 1 tablet (100 mcg) by mouth once daily in the morning. Take before meals. 30 tablet 3 12/23/2023 Active Start: 08-10-2022 End: 08-10-2022 take 2 tablets by mouth once daily levothyroxine (SYNTHROID) 50 mcg tablet Take 2 tablets by mouth once daily. Take 88 mcg 0 08/10/2022 Active Start: 01-03-2020 Levothyroxine Sodium 88 MCG Oral Tablet TAKE 1 TABLET Daily in the AM TUESDAY THROUGH TUESDAY AND / ON TUESDAY AND TUESDAY Quantity: 90 Refills: 1 Ordered: 31-May-[address] MD Start : 03-Jan-2020 Active Start: 07-23-2019 End: 08-10-2022 take 1 tablet by mouth once daily levothyroxine (SYNTHROID) 50 mcg tablet Indications: Acquired hypothyroidism Take 1 tablet by mouth once daily. 30 tablet 1 07/23/2019 08/10/2022 Discontinued Comment on above: Take 2 tablets by mo ut once daily. Take 88 mcg Take 1 tablet by savanah th once daily. Take 2 tablets by mo uth once daily. methylPREDNISolone (1 source) Corticosteroid Start: 2022 End: 2022 methylPREDNISolone (Medrol Dospak) 4 mg tablets Indications: Sinusitis, unspecified chronicity, unspecified location Take as directed on package. 21 tablet 0 10/25/2022 11/01/2022 Active rimegepant 75 mg disintegrating oral tablet (1 source) Start: 2022 take 1 tablet by mouth every other day rimegepant (Nurtec ODT) 75 mg tablet,disintegrating Indications: Periodic headache syndrome, not intractable Take 1 tablet (75 mg) by mouth every other day. 16 tablet 1 10/25/2022 Active Start: 10-25-2022 take 1 tablet by savanah th every other day rimegepant (Nurtec ODT) 75 mg tablet,disintegrating Indications: Periodic headache syndrome, not intractable Take 1 tablet (75 mg) by mouth every other day. 16 tablet 1 10/25/2022 Active rosuvastatin calcium 5 mg oral tablet (1 source) HMG-CoA Reductase Inhibitor Start: 12-23-2023 take 0.5 tablet by mouth once daily rosuvastatin (Crestor) 5 mg tablet Indications: Hyperlipemia, mixed Take 0.5 tablets (2.5 mg) by mouth once daily. 45 tablet 3 12/23/2023 Active sertraline 50 mg oral tablet (2 sources) Serotonin Reuptake Inhibitor Start: 12-25-2024 take 1 tablet by mouth at bedtime Sertraline 50 mg tablet Active 50 mg PO AT BEDTIME December 25, 2024 12:00am Start: 12-22-2023 take 1 tablet by savanah th once daily sertraline (Zoloft) 50 mg tablet Indications: Anxiety and depression Take 1 tablet (50 mg) by mouth once daily. 90 tablet 1 12/22/2023 Active vortioxetine 10 mg oral tablet (20 sources) Start: 03-24-2021 End: 12-08-2021 take 1 tablet by mouth once daily Trintellix 10 mg tablet tablet Take 1 tablet (10 mg) by mouth once daily. 0 03/24/2021 Active End: 08-10-2022 take 2 tablets by mouth once daily vortioxetine (TRINTELLIX) 5 mg tablet Take 5 mg by mouth once daily. Taking 5 mg daily, increase to 2 tablets daily on 04/07/21. 0 08/10/2022 Discontinued Comment on above: Take 5 mg by mouth o nce daily. Taking 5 mg daily, increase to 2 tablets daily on 04/07/21. Completed/Discontinued Medications Medication Drug Class(es) Dates Sig (Normalized) Sig (Original) buPROPion hydrochloride 100 mg oral tablet (4 sources) Aminoketone Start: 12-08-2021 End: 05-31-2022 take 7 tablets by mouth in the morning buPROPion HCl - 100 MG Oral Tablet one in the am Quantity: 90 Refills: 1 Ordered: 08-Dec-[address] MD Start : 08-Dec-2021 End : 31-May-2022 Complete escitalopram 20 mg oral tablet (3 sources) Serotonin Reuptake Inhibitor Start: 11-05-2021 take 1 tablet by mouth once daily Escitalopram Oxalate 20 MG Oral Tablet TAKE 1 TABLET BY MOUTH EVERY DAY Quantity: 30 Refills: 3 Ordered: 02-Dec-[address] MD Start : 05-Nov-2021 Active etodolac 300 mg oral capsule (1 source) Nonsteroidal Anti-inflammatory Drug Start: 04-21-2015 End: 12-25-2024 take 1 capsule by mouth three times daily at mealtime Etodolac 300 MG capsule Discontinued 300 mg PO 3 TIMES DAILY WITH MEALS April 21, 2015 12:00am December 25, 2024 3:07pm with food famotidine 20 mg oral tablet (1 source) Histamine-2 Receptor Antagonist Start: 05-31-2022 take 1 tablet by mouth twice daily Famotidine 20 MG Oral Tablet one twice a day Quantity: 10 Refills: 0 Ordered: 31-May-[address] MD Start : 31-May-2022 Active FLUoxetine 60 mg oral tablet (2 sources) Serotonin Reuptake Inhibitor Start: 04-14-2021 take 1 tablet by mouth once daily FLUoxetine HCl - 60 MG Oral Tablet one a day Quantity: 90 Refills: 3 Ordered: 14-Apr-[address] MD Start : 14-Apr-2021 Active hyoscyamine sulfate 0.125 mg oral tablet (1 source) Start: 05-13-2019 End: 08-10-2022 take 1 tablet by mouth every eight hours as needed hyoscyamine (LEVSIN) 0.125 mg tablet Take 1 tablet by mouth every 8 hours as needed for up to 7 days. 15 tablet 0 05/13/2019 08/10/2022 Discontinued Comment on above: Take 1 tablet by savaanh th every 8 hours as needed for up to 7 days. PARoxetine hydrochloride 10 mg oral tablet (3 sources) Serotonin Reuptake Inhibitor Start: 12-08-2021 End: 01-07-2022 take 7 tablets by mouth in the evening PARoxetine HCl - 10 MG Oral Tablet ONE IN THE PM Quantity: 90 Refills: 1 Ordered: 08-Dec-[address] MD Start : 08-Dec-2021 End : 07-Jan-2022 Complete promethazine hydrochloride 25 mg oral tablet (1 source) Phenothiazine Start: 05-13-2019 End: 08-10-2022 take 1 tablet by mouth every six hours as needed promethazine (PHENERGAN) 25 mg tablet Take 1 tablet by mouth every 6 hours as needed for Nausea/Vomiting. 12 tablet 0 05/13/2019 08/10/2022 Discontinued Comment on above: Take 1 tablet by savanah th every 6 hours as needed for Nausea/Vomiting. 24 hr venlafaxine 150 mg extended release oral capsule (1 source) Serotonin and Norepinephrine Reuptake Inhibitor Start: 04-16-2021 take 1 capsule by mouth once daily Venlafaxine HCl ER 150 MG Oral Capsule Extended Release 24 Hour one a day Quantity: 30 Refills: 3 Ordered: 16-Apr-[address] MD Start : 16-Apr-2021 Active Problems Active Problems Problem Classification Problem Date Documented Da te Episodic/Chronic Abdominal pain (4 sources) Unspecified abdominal pain; Translations: [Abdominal pain] Onset: 11-01-2024 11-01-2024 Episodic Anxiety disorders (18 sources) Mixed anxiety and depressive disorder; Translations: [Anxiety state, unspecified] Onset: 10-25-2022 10-25-2022 Chronic Cardiac dysrhythmias (1 source) Palpitations; Translations: [Palpitations] 05-09-2024 Episodic Deficiency and other anemia (3 sources) Iron deficiency anemia due to blood loss; Translations: [Iron deficiency anemia secondary to blood loss (chronic)] Onset: 10-25-2022 Resolved: 12-22-2023 10-25-2022 Chronic Disorders of lipid metabolism (19 sources) Hyperlipidemia; Translations: [Other and unspecified hyperlipidemia] Onset: 10-25-2022 10-25-2022 Chronic Fever of unknown origin (2 sources) Fever; Translations: [Fever, unspecified] Episodic Headache; including migraine (13 sources) Migraine with aura; Translations: [Migraine with aura, not intractable, without status migrainosus] Onset: 10-25-2022 10-25-2022 Chronic Nausea and vomiting (1 source) Vomiting; Translations: [Vomiting alone] Episodic Nonmalignant breast conditions (1 source) Mastodynia; Translations: [Breast pain, right] Onset: 12-28-2022 Episodic Nonspecific chest pain (2 sources) Other chest pain; Translations: [Chest pain] Onset: 05-22-2024 05-09-2024 Episodic Nutritional deficiencies (5 sources) Vitamin D deficiency; Translations: [Unspecified vitamin D deficiency] Chronic Other connective tissue disease (1 source) Fibromyalgia; Translations: [Fibromyalgia] 10-25-2022 Episodic Other connective tissue disease (1 source) Pain in right lower limb; Translations: [Pain in right leg] 05-09-2024 Episodic Other gastrointestinal disorders (1 source) Abdominal distension (gaseous); Translations: [Abdominal distension (gaseous)] Onset: 11-03-2024 Episodic Other gastrointestinal disorders (3 sources) Abdominal bloating; Translations: [Abdominal distension (gaseous)] 11-01-2024 Episodic Thyroid disorders (20 sources) Autoimmune hypothyroidism; Translations: [Other specified acquired hypothyroidism] Onset: 03-28-2017 Resolved: 12-22-2023 03-28-2017 Chronic Past or Other Problems Problem Classification Problem Date Documented Da te Episodic/Chronic Mood disorders (3 sources) Recurrent major depressive episodes, moderate ; Translations: [Major depressive disorder, recurrent, moderate] Onset: 10-25-2022 Resolved: 12-22-2023 10-25-2022 Chronic Other gastrointestinal disorders (1 source) Heartburn; Translations: [Heartburn] Onset: 06-21-2017 06-21-2017 Episodic Other nutritional; endocrine; and metabolic disorders (11 sources) History of nutritional deficiency; Translations: [Personal history of nutritional deficiency] Resolved: 04-21-2021 Episodic Other nutritional; endocrine; and metabolic disorders (1 source) Overweight in adulthood with body mass index of 25 or more but less than 30; Translations: [Body mass index (BMI) 26.0-26.9, adult] Onset: 12-22-2023 12-22-2023 Episodic Other screening for suspected conditions (not mental disorders or infectious disease) (1 source) Thyroid function tests abnormal; Translations: [Abnormal results of thyroid function studies] Onset: 03-21-2017 03-21-2017 Episodic Other upper respiratory infections (3 sources) Sinusitis; Translations: [Chronic sinusitis, unspecified] Onset: 10-25-2022 Resolved: 12-22-2023 10-25-2022 Chronic Unclassified (16 sources) No history of procedure; Translations: [No history of previous surgery] Unclassified (2 sources) Onset: 10-25-2022 Resolved: 12-22-2023 10-25-2022 Results Test Name Value Interpretation Reference Range Facility Urine testOrdered By: Federico Vega on 12-27-2024 HCG ( test) Ql (U) Negative [facility] Comment on above: Very dilute urine sp ecimens, as indicated by a low specificgravity, may not contain patient support representative levels of hCG. If is still suspected, a first morning urinespecimen should be collected 48 hours later and tested. Celiac Disease Profileon ENDOMYSIAL IGA Negative Normal Negative [facility] Comment on above: Performed By: #### L 500.4050, L3410.2400, L100.0100 ####[facility] [id number] [place], [place], [id number] IMMUNOGLOB A QN 224 mg/dL Normal 87-352 [facility] Comment on above: Result Comment: Perf ormed at: - [facility] [address] [id number] Network/Telecom Engineer: Parag Batista PhD, Phone: [phone] Performed By: #### L [id number], L3410.2400, L100.0100 ####[facility] [id number] [place], [address] tTG IGA <2 Normal 0-3 [facility] Comment on above: Result Comment: Nega tive 0 - 3 Weak Positive 4 - 10 Positive >10 Tissue Transglutaminase (tTG) has been identified as the endomysial antigen. Studies have demonstr- ated that endomysial IgA antibodies have over 99% specificity for gluten sensitive enteropathy. Performed By: #### L [id number], L3410.2400, L100.0100 ####[facility] [id number] [place], [place], [id number] Absolute lymphocyte countOrd ered By: Chandrika Uriostegui on 11-01-2024 Lymphocytes Auto (Unsp spec) [#/Vol] 2.44 10*3/uL 0.83-4.51 [facility] Absolute neutrophil countOrd ered By: Chandrika Uriostegui on 11-01-2024 Neutrophils (Bld) [#/Vol] 5.3 10*3/uL 2.0-7.7 [facility] Anion gap in Serum or Plasma Ordered By: Chandrika Uriostegui on 11-01-2024 Anion gap [Moles/Vol] 11 mmol/L 5-15 [facility] Automated lymphocyte count a s percentage of total leukocytesOrdered By: Chandrika Uriostegui on 11-01-2024 Lymphocytes/100 WBC Auto (Unsp spec) 27.8 % - [facility] BUN/creatinine ratioOrdered By: Chandrika Uriostegui on 11-01-2024 Urea nitrogen/Creatinine [Mass ratio] 21.3 mg/mg High 10- [facility] Basophil percentageOrdered B y: Chandrika Uriostegui on 11-01-2024 Basophils/100 WBC (Bld) 0.6 % 0-1 [facility] Bilirubin, totalOrdered By: Chandrika Uriostegui on 11-01-2024 Bilirubin [Mass/Vol] 0.18 mg/dL 0.00-1.[address] [facility] CBC W/Diff, Automatedon Absolute Lymph 2.44 X10 3/uL Normal 0.83-4.51 [facility] Comment on above: Performed By: #### L 500.4050, L3410.2400, L100.0100 #### [facility] [address] [place], [address] Absolute Neut 5.3 X10 3/uL Normal 2.0-7.7 [facility] Comment on above: Performed By: #### L 500.4050, L3410.2400, L100.0100 #### [facility] [address] [place], [address] Basophils/100 WBC (Bld) 0.6 % Normal 0-1 [facility] Comment on above: Performed By: #### L 500.4050, L3410.2400, L100.0100 #### [facility] [address] [place], [address] Eosinophils/100 WBC (Bld) 1.7 % Normal 0-5 [facility] Comment on above: Performed By: #### L 500.4050, L3410.2400, L100.0100 #### [facility] [address] [place], [address] Erythrocyte distribution width (RBC) [Ratio] 12.3 % Normal 11.6-14.6 [facility] Comment on above: Performed By: #### L 500.4050, L3410.2400, L100.0100 #### [facility] [address] [place], [address] Hematocrit (Bld) [Volume fraction] 39.3 % Normal 37-47 [facility] Comment on above: Performed By: #### L 500.4050, L3410.2400, L100.0100 #### [facility] [address] [place], [address] Hemoglobin (Bld) [Mass/Vol] 13.3 g/dL Normal 12.0-15.0 [facility] Comment on above: Performed By: #### L 500.4050, L3410.2400, L100.0100 #### [facility] [address] [place], [address] IG% 0.300 Normal 0.0-0.9 [facility] Comment on above: Result Comment: IG% - Immature Granulocytes (promyelocytes, myelocytes and metamyelocytes) > 1% indicates that a LEFT SHIFT is Present. Performed By: #### L 500.4050, L3410.2400, L100.0100 #### [facility] [address] [place], [address] Lymphocytes/100 WBC (Bld) 27.8 % Normal 19-41 [facility] Comment on above: Performed By: #### L 500.4050, L3410.2400, L100.0100 #### [facility] [address] [place], [address] MCH (RBC) [Entitic mass] 29.9 pg Normal 27.0-32.0 [facility] Comment on above: Performed By: #### L 500.4050, L3410.2400, L100.0100 #### [facility] [address] [place], [address] MCHC (RBC) [Mass/Vol] 33.8 g/dL Normal 32-36 [facility] Comment on above: Performed By: #### L 500.4050, L3410.2400, L100.0100 #### [facility] [address] [place], [address] MCV (RBC) [Entitic vol] 88.3 fL Normal 81-99 [facility] Comment on above: Performed By: #### L 500.4050, L3410.2400, L100.0100 #### [facility] [address] [place], [address] Monocytes/100 WBC (Bld) 9.0 % Normal 0-10 [facility] Comment on above: Performed By: #### L 500.4050, L3410.2400, L100.0100 #### [facility] [address] [place], [address] Neutrophils/100 WBC (Bld) 60.6 % Normal 47-70 [facility] Comment on above: Performed By: #### L 500.4050, L3410.2400, L100.0100 #### [facility] [address] [place], [address] Nucleated RBC (Bld) [#/Vol] 0 10*3/uL Normal 0-5 [facility] Comment on above: Performed By: #### L 500.4050, L3410.2400, L100.0100 #### [facility] [address] [place], [address] Platelet mean volume (Bld) [Entitic vol] 9.8 fL Normal 6.2-12.0 [facility] Comment on above: Performed By: #### L 500.4050, L3410.2400, L100.0100 #### [facility] [address] [place], [address] Platelets (Bld) [#/Vol] 294 10*3/uL Normal 150-450 [facility] Comment on above: Performed By: #### L 500.4050, L3410.2400, L100.0100 #### [facility] [address] [place], [address] RBC (Bld) [#/Vol] 4.45 10*6/uL Normal 4.2-5.4 [facility] Comment on above: Performed By: #### L 500.4050, L3410.2400, L100.0100 #### [facility] [address] [place], [address] RDW SD 40.1 fl Normal 35.1-43.9 [facility] Comment on above: Performed By: #### L 500.4050, L3410.2400, L100.0100 #### [facility] [address] [place], [address] WBC (Bld) [#/Vol] 8.8 10*3/uL Normal 4.4-11.0 [facility] Comment on above: Performed By: #### L 500.4050, L3410.2400, L100.0100 #### [facility] [address] [place], [address] Carbon dioxide, total [Moles /volume] in Central venous bloodOrdered By: Chandrika Uriostegui on 11-01-2024 CO2 [Moles/Vol] 23.6 mmol/L 21.0-32.0 [facility] Chloride assayOrdered By: Alisson selvin Moody on 11-01-2024 Chloride [Moles/Vol] 106 mmol/L 98-[address] [facility] Comprehensive Metabolic Prof ilon 11-01-2024 Albumin [Mass/Vol] 4.6 g/dL Normal 3.5-5.0 [facility] Comment on above: Performed By: #### L 500.4050, L3410.2400, L100.0100 #### [facility] [address] [place], [address] Albumin/Globulin [Mass ratio] 1.5 {ratio} Normal 0.9-2.4 [facility] Comment on above: Performed By: #### L 500.4050, L3410.2400, L100.0100 #### [facility] [address] [place], [address] ALK PHOS 71 U/L Normal 35-104 [facility] Comment on above: Performed By: #### L 500.4050, L3410.2400, L100.0100 #### [facility] [address] [place], [address] ALT [Catalytic activity/Vol] 16 U/L Normal <=34 [facility] Comment on above: Performed By: #### L 500.4050, L3410.2400, L100.0100 #### [facility] [address] [place], [address] AST [Catalytic activity/Vol] 19 U/L Normal <=31 [facility] Comment on above: Performed By: #### L 500.4050, L3410.2400, L100.0100 #### [facility] [address] [place], [address] Bilirubin [Mass/Vol] 0.18 mg/dL Normal 0.00-1.[address] [facility] Comment on above: Performed By: #### L 500.4050, L3410.2400, L100.0100 #### [facility] [address] [place], [address] BUN/CRE 21.3 RATIO High 10-20 [facility] Comment on above: Performed By: #### L 500.4050, L3410.2400, L100.0100 #### [facility] [address] [place], [address] Calcium [Mass/Vol] 9.5 mg/dL Normal 7.6-11.0 [facility] Comment on above: Performed By: #### L 500.4050, L3410.2400, L100.0100 #### [facility] [address] [place], [address] Chloride [Moles/Vol] 106 mmol/L Normal 98-[address] [facility] Comment on above: Performed By: #### L 500.4050, L3410.2400, L100.0100 #### [facility] [address] [place], [address] CO2 [Moles/Vol] 23.6 mmol/L Normal 21.0-32.0 [facility] Comment on above: Performed By: #### L 500.4050, L3410.2400, L100.0100 #### [facility] [address] [place], [address] Creatinine [Mass/Vol] 0.69 mg/dL Low 0.70-1.20 [facility] Comment on above: Performed By: #### L 500.4050, L3410.2400, L100.0100 #### [facility] [address] [place], [address] GAP 11 Normal 5-15 [facility] Comment on above: Performed By: #### L 500.4050, L3410.2400, L100.0100 #### [facility] [address] [place], [address] GFR/1.73 sq M.predicted among non-blacks MDRD (S/P/Bld) [Vol rate/Area] 115 mL/min/{1.73_m2} Normal >60 [facility] Comment on above: Result Comment: mL/m in/1.73m2 CKD-EPI Creatinine Equation (2020) Performed By: #### L 500.4050, L3410.2400, L100.0100 #### [facility] [address] [place], [address] Globulin (S) [Mass/Vol] 3.0 g/dL Normal 2.2-4.2 [facility] Comment on above: Performed By: #### L 500.4050, L3410.2400, L100.0100 #### [facility] [address] [place], [address] Glucose [Mass/Vol] 94 mg/dL Normal 70-99 [facility] Comment on above: Performed By: #### L 500.4050, L3410.2400, L100.0100 #### [facility] [address] [place], [address] Potassium [Moles/Vol] 3.8 mmol/L Normal 3.3-5.1 [facility] Comment on above: Performed By: #### L 500.4050, L3410.2400, L100.0100 #### [facility] Laboratory [address] [place], [address] Sodium [Moles/Vol] 140 mmol/L Normal 133-145 [facility] Comment on above: Performed By: #### L 500.4050, L3410.2400, L100.0100 #### [facility] [address] [place], [address] T PROT 7.6 g/dL Normal 5.9-8.4 [facility] Comment on above: Performed By: #### L 500.4050, L3410.2400, L100.0100 #### [facility] [address] [place], [address] Urea nitrogen [Mass/Vol] 15 mg/dL Normal 4-19 [facility] Comment on above: Performed By: #### L 500.4050, L3410.2400, L100.0100 #### [facility] [address] [place], [address] Eosinophil percentageOrdered By: Chandrika Uriostegui on 11-01-2024 Eosinophils/100 WBC (Bld) 1.7 % 0-5 [facility] Erythrocyte distribution wid th ratioOrdered By: Chandrika Uriostegui on 11-01-2024 Erythrocyte distribution width (RBC) [Ratio] 12.3 % 11.6-14.6 [facility] Erythrocyte distribution wid th standard deviationOrdered By: Chandrika Uriostegui on 11-01-2024 Erythrocyte distribution width (RBC) [Ratio] 40.1 fl 35.1-43.9 [facility] Gastroenterology Visit Repor ton 11-01-2024 Gastroenterology Visit Report [facility] [address] [place] [address] OFFICE VISIT Date of Service: 11/01/24 MR#: [id number] Acct: [id number] Name: VIRGINIA BRODERICK Rep #: [id number] : 1985 Provider: KARTHIKEYAN Valenzuela Age/Sex: 39/F Location: [facility] Status: Signed Intake Vital Signs 05/01/24 12:02 Height 5 ft 3 in Intake Visit Reasons: Bloating after eating Chief Complaint: abd bloating Allergies No Known Allergies Allergy (Verified 05/01/24 12:02) Patient : No Nurse's Note: OV O5.07.28 Pt here to establish care with [facility]. Pt reports n/v/d, gas, bloating and abdominal pain. Pt has no hx of EGD or colonoscopy. [facility] Social History Smoking Status: Never smoker HPI HPI Chief Complaint: abd bloating Details: VIRGINIA BRODERICK, is a 39 F who presents to the office today for establishment with [facility]. Over the past 6 months patient has noticed abd bloating. This started out just after a meal but now she has bloating all the time. She has not noticed any specific triggering foods. She also endorses heartburn during but night but does not take PPI. On occasion she will wake up with nausea. She has a family hx of celiac disease in her younger sister. Pt father was diagnosed with colon cancer about two years ago at age 59. He had colectomy and is now undergoing chemotherapy. Pt has never had a colonoscopy. She denies constipation, diarrhea or blood in her stool. ROS Const Constitutional: Positive for fatigue, fever(s) and headache(s); No weight change ENT ENT: Positive for headache(s); No difficulty swallowing Gastro GI: Positive for abdominal pain, bloating, diarrhea, heartburn, excessive flatus, nausea/dyspepsia and vomiting; No belching, change in bowel habits, change in stool character, coffee ground emesis, constipation, cramping, difficulty swallowing, feeling full early, incontinent of stools, Vomiting blood/hematemesis, Blood in stool, loose stools, Black,tarry stools, pain with swallowing or other Musc Musculoskeletal: Positive for joint pain, back pain, muscle cramps and stiffness Skin Skin: Positive for dry skin and itchy eyes; No yellowing of the eye Neuro Neurology: Positive for headache(s) Psych Psychiatric: Positive for anxiety and Positive for depression Endo Endocrine: Positive for fatigue; No weight change Aller/Imm Allergy/Immunologic: Positive for itchy eyes Timur/Lymp Hematologic/Lymphatic : No easy bleeding or easy bruising Exam Const General: cooperative and comfortable Nutritional Appearance: average body habitus and well nourished HENPA Head: normal to inspection Ears: hearing grossly normal bilaterally Nose: external nose normal Face and sinus: normal facial exam Eyes General: appearance normal, both eyes and all related structures Neck Neck: normal visual inspection Chest Chest palpation inspection: normal inspection of the chest and normal palpation of entire chest wall Resp Effort Inspection: normal respiratory effort Auscultation: Bilateral: Clear to Auscultation Cardio Palpation: normal PMI Rate: regular rate Rhythm: regular rhythm GI Inspection: normal to inspection Auscultation: normal bowel sounds Percussion: normal to percussion Palpation: no hepatosplenomegaly Skin General: no rashes or lesions noted Neuro General: patient alert Extrem General: normal to inspection Psych Affect: normal affect Assessment and Plan Assessment and Plan (1) Bloating: Status: Acute Plan: This is a 39 yo female pt here today for evaluation of bloating and abd pain. Pt started to notice these symptoms after eating about 6 months ago and since then it has progressed to her being bloated daily. She has heartburn on a regular basis typically in the evening. She denies constipation, diarrhea, blood in her stool or unintentional weight loss. She endorses a family hx of both celiac disease (sister) and colon cancer (father age 59). Due to her family hx and symptoms she will undergo EGD and colonoscopy. I have concern for celiac disease or inflammation in her upper GI tract. I will also order celiac panel, CBC and CMP. Pt agreeable to plan. -EGD and colonoscopy -Celiac panel -f/u after procures (2) Abdominal pain: Status: Acute Orders: Orders Celiac Disease Profile Today R10.9 - Unspecified abdominal pain, R14.0 - Abdominal distension (gaseous) CBC W/Diff, Automated Today R10.9 - Unspecified abdominal pain, R14.0 - Abdominal distension (gaseous) Comprehensive Metabolic Profil Today R10.9 - Unspecified abdominal pain, R14.0 - Abdominal distension (gaseous) Coding Level of Care Code Off vis,new,level 4 Diagnoses Bloating R14.0 Abdominal pain R10.9 11/01/24 1636 Date (more content not included)... Normal [facility] Glomerular filtration rate ( GFR) estimation/1.73 sq m using serum, plasma, or whole bOrdered By: Chandrika Uriostegui on 11-01-2024 GFR/1.73 sq M.predicted among non-blacks MDRD (S/P/Bld) [Vol rate/Area] 115 mL/min/{1.73_m2} >60 [facility] Comment on above: mL/min/1.73m2 CKD-EP I Creatinine Equation (2020) Hematocrit Auto (Bld) [Volum e fraction]Ordered By: Chandrika Uriostegui on 11-01-2024 Hematocrit (Bld) [Volume fraction] 39.3 % 37-47 [facility] Hemoglobin measurementOrdere d By: Chandrika Uriostegui on 11-01-2024 Hemoglobin (Bld) [Mass/Vol] 13.3 g/dL 12.0-15.0 [facility] Immature granulocytes/100 WB C Auto (Bld)Ordered By: Chandrika Uriostegui on 11-01-2024 Immature granulocytes/100 WBC (Bld) 0.300 % 0.0-0.9 [facility] Comment on above: IG% - Immature Granu locytes (promyelocytes, myelocytes and metamyelocytes) > 1% indicates that a LEFT SHIFT is Present. Laboratory - Chemistry and C hemistry - challengeOrdered By: Chandrika Uriostegui on 11-01-2024 AST [Catalytic activity/Vol] 19 U/L <32 [facility] MCV (mean corpuscular volume ) determinationOrdered By: Chandrika Uriostegui on 11-01-2024 MCV (RBC) [Entitic vol] 88.3 fL 81-99 [facility] Mean corpuscular hemoglobin (MCH) determinationOrdered By: Chandrika Uriostegui on 11-01-2024 MCH (RBC) [Entitic mass] 29.9 pg 27.0-32.0 [facility] Mean corpuscular hemoglobin concentration (MCHC) determinationOrdered By: Chandrika Uriostegui on 11-01-2024 MCHC (RBC) [Mass/Vol] 33.8 g/dL 32-36 [facility] Mean platelet volume determi nationOrdered By: Chandrika Uriostegui on 11-01-2024 Platelet mean volume (Bld) [Entitic vol] 9.8 fL 6.2-12.0 [facility] Monocyte percentageOrdered B y: Chandrika Uriostegui on 11-01-2024 Monocytes/100 WBC (Bld) 9.0 % 0-10 [facility] Neutrophil percentageOrdered By: Chandrika Uriostegui on 11-01-2024 Neutrophils/100 WBC (Bld) 60.6 % 47-70 [facility] Nucleated red blood cell per centageOrdered By: Chandrika Uriostegui on 11-01-2024 Nucleated RBC/100 WBC (Bld) [Ratio] 0 % 0-5 [facility] Platelet countOrdered By: Alisson Uriostegui on 11-01-2024 Platelets (Bld) [#/Vol] 294 10*3/uL 150-450 [facility] Potassium measurement (mass/ volume)Ordered By: Chandrika Uriostegui on 11-01-2024 Potassium (Unsp spec) [Mass/Vol] 3.8 mmol/L 3.3-5.1 [facility] RBC Auto (Bld) [#/Vol]Ordere d By: Chandrika Uriostegui on 11-01-2024 RBC (Bld) [#/Vol] 4.45 10*6/uL 4.2-5.4 [facility] Serum creatinine measurement (mass/volume)Ordered By: Chandrika Uriostegui on 11-01-2024 Creatinine [Mass/Vol] 0.69 mg/dL Low 0.70-1.20 [facility] Serum globulin measurementOr dered By: Chandrika Uriostegui on 11-01-2024 Globulin (S) [Mass/Vol] 3.0 g/dL 2.2-4.2 [facility] Serum glucose measurement (m ass/volume)Ordered By: Chandrika Uriostegui on 11-01-2024 Glucose [Mass/Vol] 94 mg/dL 70-99 [facility] Serum or plasma IgA measurem ent (mass/volume)Ordered By: Chandrika Uriostegui on 11-01-2024 IgA [Mass/Vol] 224 mg/dL 87-352 [facility] Comment on above: Performed at: [address] [id number] Director: Parag Batista PhD, Phone: [phone] Serum or plasma alanine ta otransferase (ALT) measurementOrdered By: Chandrika Uriostegui on 11-01-2024 ALT [Catalytic activity/Vol] 16 U/L <35 [facility] Serum or plasma albumin shweta urement (mass/volume)Ordered By: Chandrika Uriostegui on 11-01-2024 Albumin [Mass/Vol] 4.6 g/dL 3.5-5.0 [facility] Serum or plasma albumin/glob ulin mass ratioOrdered By: Chandrika Uriostegui on 11-01-2024 Albumin/Globulin [Mass ratio] 1.5 {ratio} 0.9-2.4 [facility] Serum or plasma alkaline ann-marie sphatase measurementOrdered By: Chandrika Uriostegui on 11-01-2024 ALP [Catalytic activity/Vol] 71 U/L 35-104 [facility] Serum or plasma calcium shweta urement (mass/volume)Ordered By: Chandrika Uriostegui on 11-01-2024 Calcium [Mass/Vol] 9.5 mg/dL 7.6-11.0 [facility] Serum or plasma urea nitroge n measurement (mass/volume)Ordered By: Chandrika Uriostegui on 11-01-2024 Urea nitrogen [Mass/Vol] 15 mg/dL 4-19 [facility] Serum tissue transglutaminas e (tTG) IgA antibody assay (units/volume)Ordered By: Chandrika Uriostegui on 11-01-2024 tTG IgA Qn (S) <2 U/mL 0-3 [facility] Comment on above: Negative 0 - 3 Weak Positive 4 - 10 Positive >10 Tissue Transglutaminase (tTG) has been identified as the endomysial antigen. Studies have demonstr- ated that endomysial IgA antibodies have over 99% specificity for gluten sensitive enteropathy. Sodium levelOrdered By: Aury Uriostegui on 11-01-2024 Sodium [Moles/Vol] 140 mmol/L 133-145 [facility] Total proteinOrdered By: Elisha Uriostegui on 11-01-2024 Protein [Mass/Vol] 7.6 g/dL 5.9-8.4 [facility] White blood cell (WBC) count Ordered By: Chandrika Uriostegui on 11-01-2024 WBC (Bld) [#/Vol] 8.8 10*3/uL 4.4-11.0 [facility] 12 Lead EKGon 05-01-[address] [facility] Cardiovascular Services [address] [place] [address] 12 Lead EKG 05/01/24 1208 MR#: [id number] Acct: [id number] Name: VIRGINIA BRODERICK Rep #: [id number] : 1985 39 From: Ricardo Pena MD Attending Dr: Status: DEP ER Ordering Dr: Baljinder Root DO Date: 05/01/24 Location: ED Sex: F C Admitted: Test Reason : CHEST TIGHTNESS Blood Pressure : */* mmHG Vent. Rate : 102 BPM Atrial Rate : 102 BPM P-R Int : 134 ms QRS Dur : 72 ms QT Int : 344 ms P-R-T Axes : 41 17 40 degrees QTcB Int : 448 ms Sinus tachycardia Otherwise normal ECG No previous ECGs available Confirmed by LAURA FELICIANO, RICARDO ([id number]), staff editor RACHELLE MASON ([id number]) on 05/04/2024 11:13:58 AM Referred By: Confirmed By: RICARDO PENA MD 05/04/24 1113 Date Ricardo Pena MD CC: Dr. Baljinder Root DO; [address] Signed Normal [facility] Basic Metabolic Profile (BMP )on 05-01-2024 BUN/CRE 13.6 RATIO Normal - [facility] Comment on above: Order Comment: 1 Y Performed By: #### L 500.2500, L100.0100, L501.5425 #### [facility] [address] [place], [address] CA,Total 9.2 mg/dL Normal 8.5-10.1 [facility] Comment on above: Order Comment: 1 Y Performed By: #### L 500.2500, L100.0100, L501.5425 #### [facility] [address] [place], [address] Chloride [Moles/Vol] 107 mmol/L Normal 98-[address] [facility] Comment on above: Order Comment: 1 Y Performed By: #### L 500.2500, L100.0100, L501.5425 #### [facility] [address] [place], [address] CO2 [Moles/Vol] 25.0 mmol/L Normal 21.0-32.0 [facility] Comment on above: Order Comment: 1 Y Performed By: #### L 500.2500, L100.0100, L501.5425 #### [facility] [address] [place], [address] Creatinine [Mass/Vol] 0.59 mg/dL Normal 0.55-1.02 [facility] Comment on above: Order Comment: 1 Y Result Comment: The validity of the calculated GFR GFRAA in patients over 70 years has not been determined. Clinical correlation is essential. Performed By: #### L 500.2500, L100.0100, L501.5425 #### [facility] [address] [place], [address] ECRCL 119.62 ml/min Normal [facility] Comment on above: Order Comment: 1 Y Performed By: #### L 500.2500, L100.0100, L501.5425 #### [facility] [address] [place], [address] EST GFR - AA 148 mL/min Normal >60 [facility] Comment on above: Order Comment: 1 Y Result Comment: Afri can Macanese GFR Calc Performed By: #### L 500.2500, L100.0100, L501.5425 #### [facility] [address] [place], [address] GAP 7 Normal 5-15 [facility] Comment on above: Order Comment: 1 Y Performed By: #### L 500.2500, L100.0100, L501.5425 #### [facility] [address] [place], [address] GFR/1.73 sq M.predicted among non-blacks MDRD (S/P/Bld) [Vol rate/Area] 122 mL/min/{1.73_m2} Normal >60 [facility] Comment on above: Order Comment: 1 Y Result Comment: Non- GFR Calc Performed By: #### L 500.2500, L100.0100, L501.5425 #### [facility] [address] [place], [address] Glucose [Mass/Vol] 81 mg/dL Normal 74-106 [facility] Comment on above: Order Comment: 1 Y Performed By: #### L 500.2500, L100.0100, L501.5425 #### [facility] [address] [place], [address] Potassium [Moles/Vol] 3.8 mmol/L Normal 3.5-5.1 [facility] Comment on above: Order Comment: 1 Y Performed By: #### L 500.2500, L100.0100, L501.5425 #### [facility] [address] [place], [address] Sodium [Moles/Vol] 140 mmol/L Normal 136-145 [facility] Comment on above: Order Comment: 1 Y Performed By: #### L 500.2500, L100.0100, L501.5425 #### [facility] [address] [place], [address] Urea nitrogen [Mass/Vol] 8 mg/dL Normal 7-18 [facility] Comment on above: Order Comment: 1 Y Performed By: #### L 500.2500, L100.0100, L501.5425 #### [facility] [address] [place], [address] CBC W/Diff, Automatedon 10-2 Absolute Lymph 1.30 X10 3/uL Normal 0.83-4.51 [facility] Comment on above: Performed By: #### L 500.2500, L100.0100, L501.5425 #### [facility] [address] [place], [address] Absolute Neut 4.4 X10 3/uL Normal 2.0-7.7 [facility] Comment on above: Performed By: #### L 500.2500, L100.0100, L501.5425 #### [facility] [address] [place], [address] Basophils/100 WBC (Bld) 0.8 % Normal 0-1 [facility] Comment on above: Performed By: #### L 500.2500, L100.0100, L501.5425 #### [facility] [address] [place], [address] Eosinophils/100 WBC (Bld) 0.3 % Normal 0-5 [facility] Comment on above: Performed By: #### L 500.2500, L100.0100, L501.5425 #### [facility] [address] [place], [address] Erythrocyte distribution width (RBC) [Ratio] 12.7 % Normal 11.6-14.6 [facility] Comment on above: Performed By: #### L 500.2500, L100.0100, L501.5425 #### [facility] [address] [place], [address] Hematocrit (Bld) [Volume fraction] 39.7 % Normal 37-47 [facility] Comment on above: Performed By: #### L 500.2500, L100.0100, L501.5425 #### [facility] [address] [place], [address] Hemoglobin (Bld) [Mass/Vol] 13.0 g/dL Normal 12.0-15.0 [facility] Comment on above: Performed By: #### L 500.2500, L100.0100, L501.5425 #### [facility] [address] [place], [address] IG% 0.300 Normal 0.0-0.9 [facility] Comment on above: Result Comment: IG% - Immature Granulocytes (promyelocytes, myelocytes and metamyelocytes) > 1% indicates that a LEFT SHIFT is Present. Performed By: #### L 500.2500, L100.0100, L501.5425 #### [facility] [address] [place], [address] Lymphocytes/100 WBC (Bld) 20.9 % Normal 19-41 [facility] Comment on above: Performed By: #### L 500.2500, L100.0100, L501.5425 #### [facility] [address] [place], [address] MCH (RBC) [Entitic mass] 29.5 pg Normal 27.0-32.0 [facility] Comment on above: Performed By: #### L 500.2500, L100.0100, L501.5425 #### [facility] [address] [place], [address] MCHC (RBC) [Mass/Vol] 32.7 g/dL Normal 32-36 [facility] Comment on above: Performed By: #### L 500.2500, L100.0100, L501.5425 #### [facility] [address] [place], [address] MCV (RBC) [Entitic vol] 90.2 fL Normal 81-99 [facility] Comment on above: Performed By: #### L 500.2500, L100.0100, L501.5425 #### [facility] [address] [place], [address] Monocytes/100 WBC (Bld) 7.9 % Normal 0-10 [facility] Comment on above: Performed By: #### L 500.2500, L100.0100, L501.5425 #### [facility] [address] [place], [address] Neutrophils/100 WBC (Bld) 69.8 % Normal 47-70 [facility] Comment on above: Performed By: #### L 500.2500, L100.0100, L501.5425 #### [facility] [address] [place], [address] Nucleated RBC (Bld) [#/Vol] 0 10*3/uL Normal 0-5 [facility] Comment on above: Performed By: #### L 500.2500, L100.0100, L501.5425 #### [facility] [address] [place], [address] Platelet mean volume (Bld) [Entitic vol] 9.7 fL Normal 6.2-12.0 [facility] Comment on above: Performed By: #### L 500.2500, L100.0100, L501.5425 #### [facility] [address] [place], [address] Platelets (Bld) [#/Vol] 222 10*3/uL Normal 150-450 [facility] Comment on above: Performed By: #### L 500.2500, L100.0100, L501.5425 #### [facility] [address] [place], [address] RBC (Bld) [#/Vol] 4.40 10*6/uL Normal 4.2-5.4 [facility] Comment on above: Performed By: #### L 500.2500, L100.0100, L501.5425 #### [facility] [address] [place], [address] RDW SD 41.8 fl Normal 35.1-43.9 [facility] Comment on above: Performed By: #### L 500.2500, L100.0100, L501.5425 #### [facility] [address] [place], [address] WBC (Bld) [#/Vol] 6.2 10*3/uL Normal 4.4-11.0 [facility] Comment on above: Performed By: #### L 500.2500, L100.0100, L501.5425 #### [facility] [address] [place], [address] Chest 1 View (Portable)on Chest 1 View (Portable) [facility] Imaging Services [address] [place] [address] Chest 1 View (Portable) MR#: [id number] Acct: [id number] Name: VIRGINIA RODRIGUEZ Rep #: [id number] : 1985 F 39 From: Nereyda hall MD PCP: Status: PRE ER Study: Chest 1 View (Portable) Date of Exam: 05/01/24 Exam# [id number] Ordering Dr: Provider,Ed P. [id number] HISTORY: chest pain. TECHNIQUE: XR Chest 1 View. COMPARISON: 09/05/2009. FINDINGS: CARDIOMEDIASTINAL BORDERS: Cardiac silhouette within normal limits in size. Mediastinal contour unremarkable. LUNGS: Radiographically clear. PLEURA: No pleural effusion or pneumothorax seen. OSSEOUS STRUCTURES: Unremarkable. RAD/Chest 1 View (Portable) IMPRESSION: No acute cardiopulmonary process identified. Electronically Signed: Nereyad Sun MD at 14:09 EDT , CC: ED PHYSICIAN PROVIDER Psychometric Examiner: Signed Normal [facility] D-Dimer Quantitative (DVT/PE )on 05-01-2024 D-DIMER QUANT < 0.27 Low 0.27-0.49 [facility] Comment on above: Result Comment: NORM AL D-Dimer level (<0.50) indicates no DVT or PE. Performed By: #### L 300.8000 ####[facility] [address] [place], [address] Emergency Department Summary on 05-01-2024 Emergency Department Summary [facility] Medical Records Department [address] [place] [address] Emergency Department Summary 05/01/24 MR#: [id number] Acct: [id number] Name: VIRGINIA BRODERICK Rep #: [id number] : 1985 39 From: Baljinder Desai PCP: [address] Status:DEP ER Location: ED HPI History of Present Illness Chief Complaint: Chest Pain Informant: patient and spouse/S.O. Narrative Narrative: Substernal chest tightness dyspnea 11 AM while in meeting. She felt her heart racing. She was drinking a Celsius drink. She is drinking this before however not as frequent. She typically drinks coffee. No cough. No tobacco history. No history of similar. Also reporting right leg pain for the past week. Had similar symptoms with her chest pain today. Is going on throughout the day. No history of PE or DVT. She did go to [place] 3 months ago. Denies control. Last menstrual period 2 weeks ago. Medical history of hypothyroidism. Prior Similar Symptoms: No CVD Risk Factors: Negative for Hypertension, Diabetes, Hypercholesterolemia, Family History 1' or Smoking PE Risk Factors: Negative for Recent Immobilization, Prior DVT or PE or OCP + Smoking + >/=35 PFSH PFSH Home Medications ???Medication ???Instructions ???Recorded ???Last Taken ???Type etodolac 300 mg capsule 300 mg PO TIDCM ##30 04/21/15 Unknown Rx Allergy/AdvReac Type Severity Reaction Status Date / Time No Known Allergies Allergy Verified 05/01/24 12:02 Social History Smoking Status: Never smoker ROS ROS ED Constitutional Constitutional ED: Denies chills, fever(s) or sweats Eyes Eyes: Denies change in vision ENT ENT ED: Denies dysphagia or sore throat Cardiovascular Cardiovascular: Reports chest pain, palpitations and racing heartbeat; Denies leg edema Respiratory/Chest Respiratory/Chest: Reports dyspnea; Denies cough or dyspnea on exertion Gastrointestinal Gastrointestinal: Denies abdominal pain, diarrhea, nausea or vomiting Genitourinary Genitourinary ED: Denies dysuria, hematuria or urinary frequency Musculoskeletal Musculoskeletal: Reports extremity pain; Denies back pain or neck pain Integumentary Denies rash or wounds Neurologic Neurologic: Denies headache(s), paresthesias or weakness EXAM Physical Exam Const Vital Signs: 05/01/24 12:02 05/01/24 14:38 05/01/24 15:22 Temperature 97.2 F L Temperature Source Temporal Pulse Rate 109 H 75 77 Respiratory Rate 18 16 17 Blood Pressure 130/99 H 129/84 H 111/66 Blood Pressure Mean 109 99 81 Pulse Ox 100 96 95 Oxygen Delivery Method Room Air Room Air Room Air 05/01/24 15:46 Temperature 98.1 F Temperature Source Pulse Rate 67 Respiratory Rate 18 Blood Pressure 111/66 Blood Pressure Mean 81 Pulse Ox 100 Oxygen Delivery Method Positive well nourished and well developed General Appearance ED: well developed and NAD HEENT Reports moist mucous membranes normocephalic and atraumatic Eyes EOMs intact bilaterally and conjunctivae normal General Eye ED: Yes normal appearance of both eyes Neck no lymphadenopathy and supple General: Negative for tenderness Chest Wall Chest: Negative for tenderness Resp normal respiratory effort and normal air movement Effort and Inspection: symmetric chest movement; Negative for respiratory distress Cardio regular rate, regular rhythm and no murmurs Peripheral Pulses: pulses 2+ throughout GI normal to inspection, nondistended, normoactive bowel sounds and non-tender Palpation: Negative for guarding or rebound tenderness present Back/Spine no CVA tenderness and no thoracic nor lumbar tenderness Extremity normal to inspection Extremity Narrative: Mild tenderness to calf and popliteal on the right. No appreciable swelling noted. Pulses intact distally x 4. General Extremety ED: Yes tenderness; Negative for edema General Extremity: Negative for edema Neuro oriented x3 and no sensory deficits noted Sensorium / Orientation: awake and alert Skin no rashes or lesions noted and no wounds MDM MDM MDM Narrative Medical decision making narrative: Interventions / MDM: Differential diagnosis: Palpitations, atypical chest pain Diagnosis considered but do not suspect: Pulm embolus however D-dimer negative. DVT however ultrasound negative. My EKG interpretation: No ST changes isolated T wave flattening leads III. QTc 448. Imaging independently reviewed and interpreted by myself: 1 view chest x-ray: No acute process also read by radiology. Right lower extremity ultrasound: No acute process. External documents reviewed: N/A Test considered but not ordered:N/A ED course: Patient workup started from triage due to busy department. EKG sinus tachycardia has normal h (more content not included)... Normal [facility] L501.5425on 05-01-2024 TROPONIN-I HS < 3 Low 3.0-54.0 [facility] Comment on above: Order Comment: 1 Y Result Comment: Plea se Note: New Test Units and Gender Specific Reference Ranges. For more information see Policy Stat Procedure [place] High Sensitivity Troponin (TNIH) and attachments. Performed By: #### L 500.2500, L100.0100, L501.5425 #### [facility] [address] [place], [address] ,Urineon 05-01-2024 Beta HCG ( test) Ql (U) Normal [facility] Comment on above: Result Comment: DISC HARGED FROM ED Performed By: #### L 400.7600 #### [facility] [address] [place], [address] INTERNAL QC OK? Normal [facility] Comment on above: Result Comment: DISC HARGED FROM ED Performed By: #### L 400.7600 #### [facility] [address] [place], [address] RECORD KIT LOT# Normal [facility] Comment on above: Result Comment: DISC HARGED FROM ED Performed By: #### L 400.7600 #### [facility] [address] [place], [address] Venous Duplex US, Unilateral on 05-01-2024 Venous Duplex US, Unilateral [facility] [address] [place] [address] Venous Duplex US, Unilateral 05/01/24 1510 MR#: [id number] Acct: [id number] Name: VIRGINIA BRODERICK Rep #: [id number] : 1985 39 From: Darrion Brady MD Attending Dr: Status: DEP ER Ordering Dr: Baljinder Root DO Date: 05/01/24 Location: ED Sex: F C Admitted: Reason For Study: RLE PAIN RIGHT GSV is normal. CFV is compressible, spontaneous, phasic, competent and demonstrates normal augmentation. FV is compressible, spontaneous, phasic, competent and demonstrates normal augmentation. POP V is compressible, spontaneous, phasic, competent and demonstrates normal augmentation. T/P Trunk is compressible. PTV is compressible. RT PerV is compressible. Procedure This is a venous duplex using B-mode, color flow and spectral Doppler. Exam performed portable in ED. A preliminary report was called and/or faxed to Dr. Root @ 15:15. VL/Venous Duplex US, Unilateral Interpretation Summary Deep veins of the right lower extremity are patent and compressible segmentally. There is no evidence of right lower extremity deep vein thrombosis. The right great saphenous vein appears patent and compressible segmentally. Ordering Physician: Baljinder Root Referring Physician: NO PCP Performed By: Azalia Noe, STU, RVT 05/01/24 1601 Date Darrion Brady MD CC: Dr. Baljinder Root DO; FERCHO LANE Date Dictated: 05/01/24 1510 Date Transcribed: 05/01/24 1601 Psychometric Examiner: Signed Yudy [facility] CT HEAD WO IV CONTRASTon CT HEAD WO IV CONTRAST Interpreted By: Pato Hoffman, and Jennifer Packer STUDY: CT HEAD WO IV CONTRAST; 01/06/2024 3:05 pm INDICATION: Signs/Symptoms:MORALES. COMPARISON: None. ACCESSION NUMBER(S): [id number] ORDERING CLINICIAN: FERCHO LANE TECHNIQUE: Noncontrast axial CT scan of head was performed. Angled reformats in brain and bone windows were generated. The images were reviewed in bone, brain, blood and soft tissue windows. FINDINGS: CSF Spaces: The ventricles, sulci and basal cisterns are within normal limits. There is no extraaxial fluid collection. Parenchyma: The tony-white differentiation is intact. There is no mass effect or midline shift. There is no intracranial hemorrhage. Calvarium: The calvarium is intact. Paranasal sinuses and mastoids: Visualized paranasal sinuses and mastoids are clear. IMPRESSION: CT head exam appears within normal limits. I personally reviewed the image(s)/study and interpretation. I agree with the findings as stated. Interpreted at [place], [place] MACRO: None Signed by: Pato Hoffman 01/06/2024 4:27 PM Dictation workstation: [id number] [facility] Comment on above: Order Comment: Call [phone] Head WO contraston 2023 CT head exam appears within normal limits. I personally reviewed the image(s)/study and interpretation. I agree with the findings as stated. Interpreted at [place], [place] MACRO: None Signed by: Pato Hoffman 01/06/2024 4:27 PM Dictation workstation: [id number] MMODAL Interpreted By: Pato Hoffman and Korakavi Nisha STUDY: CT HEAD WO IV CONTRAST; 01/06/2024 3:05 pm INDICATION: Signs/Symptoms:MORALES. COMPARISON: None. ACCESSION NUMBER(S): [id number] ORDERING CLINICIAN: FERCHO LANE TECHNIQUE: Noncontrast axial CT scan of head was performed. Angled reformats in brain and bone windows were generated. The images were reviewed in bone, brain, blood and soft tissue windows. FINDINGS: CSF Spaces: The ventricles, sulci and basal cisterns are within normal limits. There is no extraaxial fluid collection. Parenchyma: The tony-white differentiation is intact. There is no mass effect or midline shift. There is no intracranial hemorrhage. Calvarium: The calvarium is intact. Paranasal sinuses and mastoids: Visualized paranasal sinuses and mastoids are clear. [facility] Pato Hoffman MD PhD - 01/06/2024 Interpreted By: Pato Hoffman and Korakavi Nisha STUDY: CT HEAD WO IV CONTRAST; 01/06/2024 3:05 pm INDICATION: Signs/Symptoms:MROALES. COMPARISON: None. ACCESSION NUMBER(S): [id number] ORDERING CLINICIAN: FERCHO LANE TECHNIQUE: Noncontrast axial CT scan of head was performed. Angled reformats in brain and bone windows were generated. The images were reviewed in bone, brain, blood and soft tissue windows. FINDINGS: CSF Spaces: The ventricles, sulci and basal cisterns are within normal limits. There is no extraaxial fluid collection. Parenchyma: The tony-white differentiation is intact. There is no mass effect or midline shift. There is no intracranial hemorrhage. Calvarium: The calvarium is intact. Paranasal sinuses and mastoids: Visualized paranasal sinuses and mastoids are clear. IMPRESSION: CT head exam appears within normal limits. I personally reviewed the image(s)/study and interpretation. I agree with the findings as stated. Interpreted at [place], [place] MACRO: None Signed by: Pato Hoffman 01/06/2024 4:27 PM Dictation workstation: [id number] [facility] Work Phone: Radiology Study observation (narrative) [facility] Work Phone: CT Head WO contrastOrdered B y: Pato Hoffman on 01-06-2024 [facility] Work Phone: AUTO DIFFon 12-22-2023 Baso Count 0.05 x1000 Normal 0.00-0.20 [facility] Comment on above: Performed By: #### 1 760478, 630956, 4671306, 020172, CD:[id number], [phone] #### [facility] [address] [place] [address] Party Plan Sales Consultant: Navdeep Walker MD Basos % 0.7 % Normal [facility] Comment on above: Performed By: #### 1 421467, 937697, 8797896, 784601, CD:[id number], 203406 #### [facility] [address] [place] [address] Party Plan Sales Consultant: Navdeep Walker MD Eos Count 0.10 x1000 Normal 0.00-0.50 [facility] Comment on above: Performed By: #### 1 487492, 962573, 6632805, 843361, CD:[id number], 788223 #### [facility] [address] [place] [address] Party Plan Sales Consultant: Navdeep Walker MD Eosinophils/100 WBC (Bld) 1.6 % Normal [facility] Comment on above: Performed By: #### 1 738668, 127100, 0477362, 638580, CD:[id number], 141872 #### [facility] [address] [place] [address] Party Plan Sales Consultant: Navdeep Walker MD Lymph Count 2.13 x1000 Normal 1.20-4.80 [facility] Comment on above: Performed By: #### 1 571465, 596067, 1456509, 217469, CD:[id number], 084947 #### [facility] [address] [place] [address] 36853 Party Plan Sales Consultant: Navdeep Walker MD Lymphocytes/100 WBC (Bld) 33.2 % Normal [facility] Comment on above: Performed By: #### 1 584088, 456850, 8182080, 974687, CD:[id number], 517691 #### [facility] [address] [place] [address] Party Plan Sales Consultant: Navdeep Walker MD Roberts Count 0.50 x1000 Normal 0.10-1.00 [facility] Comment on above: Performed By: #### 1 630031, 346758, 6546009, 829434, CD:[id number], 729204 #### [facility] [address] [place] [address] Party Plan Sales Consultant: Navdeep Walker MD Monocytes/100 WBC (Bld) 7.8 % Normal S [facility] Comment on above: Performed By: #### 1 873383, 028218, 6862953, 332213, CD:[id number], 260857 #### [facility] [address] [place] [address] Party Plan Sales Consultant: Navdeep Walker MD Neutrophil Count (ANC) 3.64 x1000 Normal 1.40-8.80 [facility] Comment on above: Performed By: #### 1 164482, 730372, 7329909, 007449, CD:[id number], 486657 #### [facility] [address] [place] [address] Party Plan Sales Consultant: Navdeep Walker MD Neutrophils/100 WBC (Bld) 56.7 % Normal [facility] Comment on above: Performed By: #### 1 600427, 060703, 1944271, 203212, CD:[id number], 861974 #### [facility] [address] [place] [address]654 Party Plan Sales Consultant: Navdeep Walker MD COMPMETrafael 12-22-2023 Albumin [Mass/Vol] 4.3 g/dL Normal 3.4-5.0 [facility] Comment on above: Performed By: #### 1 848144, 226763, 4418017, 450918, CD:[id number], 563885 #### [facility] [address] [place] [address] Party Plan Sales Consultant: Navdeep Walker MD Albumin/Globulin [Mass ratio] 1.3 {ratio} Normal [facility] Comment on above: Performed By: #### 1 665802, 442124, 3108797, 779811, CD:[id number], 246018 #### [facility] [address] [place] [address] Party Plan Sales Consultant: Navdeep Walker MD Alk Phos 70 unit/L Normal 45-117 [facility] Comment on above: Performed By: #### 1 529914, 994205, 3443762, 424367, CD:[id number], 515146 #### [facility] [address] [place] [address] Party Plan Sales Consultant: Navdeep Walker MD Bilirubin [Mass/Vol] 0.50 mg/dL Normal 0.30-1.20 [facility] Comment on above: Result Comment: Use of this assay is not recommended for patients undergoing treatment with eltrombopag due to the potential for falsely elevated results. Performed By: #### 1 725220, 234356, 6124285, 793882, CD:[id number], 084897 #### [facility] [address] [place] [address] Party Plan Sales Consultant: Navdeep Walker MD Calcium [Mass/Vol] 9.7 mg/dL Normal 8.7-10.4 [facility] Comment on above: Performed By: #### 1 431645, 096107, 0575509, 241494, CD:[id number], 639583 #### [facility] [address] [place] [address]1995 Party Plan Sales Consultant: Navdeep Walker MD Chloride [Moles/Vol] 106 mmol/L Normal 98-107 [facility] Comment on above: Performed By: #### 1 363148, 941178, 9472562, 401713, CD:[id number], 622046 #### [facility] [address] [place] [address] Party Plan Sales Consultant: Navdeep Walker MD CO2 [Moles/Vol] 29.0 mmol/L Normal 20.0-31.0 [facility] Comment on above: Performed By: #### 1 109876, 673739, 1788282, 732915, CD:[id number], 903327 #### [facility] [address] [place] [address] Party Plan Sales Consultant: Navdeep Walker MD Creatinine [Mass/Vol] 0.7 mg/dL Normal 0.5-0.8 [facility] Comment on above: Performed By: #### 1 166449, 888260, 3511784, 063684, CD:[id number], 023779 #### [facility] [address] [place] [address] 18334 Party Plan Sales Consultant: Navdeep Walker MD GFR AA >60 Normal [facility] Comment on above: Result Comment: Afri can Macanese GFR Calc Medical judgement is necessary to interpret GFR. The calculated GFR may not accurately reflect renal status in patients >70 years, women, acutely ill hospitalized patients and patients with acute renal failure or known renal disease. The MDRD GFR formula is valid only for adults greater than 18 years of age. Note: Creatinine clearance (not GFR) should be used for drug dosing. Performed By: #### 1 898088, 118693, 1920120, 311322, CD:[id number], 764061 #### [facility] [address] [place] [address] 05673 Party Plan Sales Consultant: Navdeep Walker MD Globulin (S) [Mass/Vol] 3.3 g/dL Normal [facility] Comment on above: Performed By: #### 1 347959, 205743, 1845885, 971060, CD:[id number], 239521 #### [facility] [address] [place] [address] 31646 Party Plan Sales Consultant: Navdeep Walker MD Glomerular Filtration Rate >60 Normal [facility] Comment on above: Result Comment: Non- GFR Calc Medical judgement is necessary to interpret GFR. The calculated GFR may not accurately reflect renal status in patients >70 years, women, acutely ill hospitalized patients and patients with acute renal failure or known renal disease. The MDRD GFR formula is valid only for adults greater than 18 years of age. Note: Creatinine clearance (not GFR) should be used for drug dosing. Performed By: #### 1 649569, 518908, 5131032, 776832, CD:[id number], 444346 #### [facility] [address] [place] [address] 12340 Party Plan Sales Consultant: Navdeep Walker MD Glucose [Mass/Vol] 86 mg/dL Normal 74-106 [facility] Comment on above: Performed By: #### 1 266387, 915144, 3492445, 531572, CD:[id number], 985490 #### [facility] [address] [place] [address] 6[address]27 Party Plan Sales Consultant: Navdeep Walker MD GOT 28 unit/L Normal 15-37 [facility] Comment on above: Performed By: #### 1 893979, 469003, 3964609, 562541, CD:[id number], 770988 #### [facility] [address] [place] [address] 36790 Party Plan Sales Consultant: Navdeep Walker MD GPT 36 unit/L Normal 10-49 [facility] Comment on above: Performed By: #### 1 141564, 655481, 1349279, 187143, CD:[id number], 153704 #### [facility] [address] [place] [address] 90996 Party Plan Sales Consultant: Navdeep Walker MD Osmolality [Osmolality] 278 mosm/kg Normal 275-295 [facility] Comment on above: Performed By: #### 1 450279, 213456, 9001962, 991287, CD:[id number], 638692 #### [facility] [address] [place] [address] 81136 Party Plan Sales Consultant: Navdeep Walker MD Potassium [Moles/Vol] 4.2 mmol/L Normal 3.5-5.1 [facility] Comment on above: Performed By: #### 1 621465, 627322, 4622509, 445675, CD:[id number], 565420 #### [facility] [address] [place] [address] 29708 Party Plan Sales Consultant: Navdeep Walker MD Protein [Mass/Vol] 7.6 g/dL Normal 5.7-8.2 [facility] Comment on above: Result Comment: Tota l Protein results may be increased in patients receiving dextran as a blood volume ict support engineer Performed By: #### 1 262405, 996088, 3890671, 586507, CD:[id number], 499117 #### [facility] [address] [place] [address] 72580 Party Plan Sales Consultant: Navdeep Walker MD Sodium [Moles/Vol] 140 mmol/L Normal 135-145 [facility] Comment on above: Performed By: #### 1 455640, 612183, 4814452, 052112, CD:[id number], 021209 #### [facility] [address] [place] [address] 51989 Party Plan Sales Consultant: Navdeep Walker MD Urea nitrogen [Mass/Vol] 10 mg/dL Normal 9-23 [facility] Comment on above: Result Comment: - Ve nipuncture should occur prior to N-Acetyl Cysteine (NAC) or Metamizole (Sulpyrine) administration due to the potential for falsely depressed results. - Blood samples from some patients with monoclonal gammopathies may produce falsely elevated results Performed By: #### 1 183443, 117844, 6371589, 506439, CD:[id number], 605423 #### [facility] [address] [place] [address] 10163 Party Plan Sales Consultant: Navdeep Walker MD Urea nitrogen/Creatinine [Mass ratio] 14.3 mg/mg Normal [facility] Comment on above: Performed By: #### 1 911118, 573806, 0723295, 023137, CD:[id number], 505149 #### [facility] [address] [place] [address] 97268 Party Plan Sales Consultant: Navdeep Walker MD FT4on 12-22-2023 Free T4 [Mass/Vol] 0.87 ng/dL Low 0.89-1.76 [facility] Comment on above: Result Comment: - Th e anticonvulsant drug phenytoin may interfere with total and free T4 levels due to competition for TBG binding sites - Free T4 values may be decreased in patients with non-thyroidal conditions and in patients taking carbamazepine Performed By: #### 1 070054, 557248, 2493857, 405103, CD:[id number], 768580 #### [facility] [address] [place] [address] 66774 Party Plan Sales Consultant: Navdeep Walker MD HEMOon 12-22-2023 DIFF? No Normal [facility] Comment on above: Performed By: #### 1 723987, 287081, 6565988, 723754, CD:[id number], 486752 #### [facility] [address] [place] [address] 78440 Party Plan Sales Consultant: Navdeep Walker MD Erythrocyte distribution width (RBC) [Ratio] 12.9 % Normal 11.5-14.5 [facility] Comment on above: Performed By: #### 1 779350, 269803, 2757279, 468215, CD:[id number], 544992 #### [facility] [address] [place] [address] 42543 Party Plan Sales Consultant: Navdeep Walker MD Hematocrit (Bld) [Volume fraction] 42.2 % Normal 36.0-46.0 [facility] Comment on above: Performed By: #### 1 663654, 238736, 0361027, 773311, CD:[id number], 504752 #### [facility] [address] [place] [address] 69528 Party Plan Sales Consultant: Navdeep Walker MD Hemoglobin (Bld) [Mass/Vol] 14.1 g/dL Normal 12.0-16.0 [facility] Comment on above: Performed By: #### 1 267011, 782589, 8899388, 708205, CD:[id number], 927545 #### [facility] [address] [place] [address] 81811 Party Plan Sales Consultant: Navdeep Walker MD Instr WBC 6.4 Normal [facility] Comment on above: Performed By: #### 1 004761, 815968, 0948844, 938254, CD:[id number], 989876 #### [facility] [address] [place] [address] 75229 Party Plan Sales Consultant: Navdeep Walker MD MCH (RBC) [Entitic mass] 29.9 pg Normal 27.0-34.0 [facility] Comment on above: Performed By: #### 1 054236, 239526, 6654884, 644474, CD:[id number], 760082 #### [facility] [address] [place] [address] 72635 Party Plan Sales Consultant: Navdeep Walker MD MCHC (RBC) [Mass/Vol] 33.3 g/dL Normal 32.0-37.0 [facility] Comment on above: Performed By: #### 1 111072, 622758, 4420857, 447758, CD:[id number], 930668 #### [facility] [address] [place] [address] 28219 Party Plan Sales Consultant: Navdeep Walker MD MCV (RBC) [Entitic vol] 89.7 fL Normal 80.0-100.0 S [facility] Comment on above: Performed By: #### 1 271945, 530955, 3142689, 547853, CD:[id number], 652345 #### [facility] [address] [place] [address] 51571 Party Plan Sales Consultant: Navdeep Walker MD Nucleated RBC 0 /100WBC Normal [facility] Comment on above: Performed By: #### 1 078447, 889594, 2221741, 029023, CD:[phone], 783403 #### [facility] [address] [place] [address] 31802 Party Plan Sales Consultant: Navdeep Walker MD Platelet 221 x10 Normal 150-450 [facility] Comment on above: Performed By: #### 1 659271, 846221, 5134564, 641250, CD:760554756, 777226 #### [facility] [address] [place] [address] 26688 Party Plan Sales Consultant: Navdeep Walker MD Platelet mean volume (Bld) [Entitic vol] 8.0 fL Normal 7.4-10.4 [facility] Comment on above: Performed By: #### 1 092916, 232461, 7358090, 696274, CD:[id number], 389659 #### [facility] [address] [place] [address] 80399 Party Plan Sales Consultant: Navdeep Walker MD RBC 4.71 x10 Normal 4.20-5.40 [facility] Comment on above: Result Comment: Note : RBC morphology is normal unless otherwise stated. Evaluation performed only if differential is requested. Performed By: #### 1 647948, 207380, 0284897, 401162, CD:[id number], 966205 #### [facility] [address] [place] [address] 36587 Party Plan Sales Consultant: Navdeep Walker MD WBC 6.4 x10 Normal 4.5-11.0 [facility] Comment on above: Performed By: #### 1 634708, 588210, 5882676, 621348, CD:[id number], 507384 #### [facility] [address] [place] [address] 94827 Party Plan Sales Consultant: Navdeep Walker MD HEP C ABon 06-20-2024 Hepatitis C Antibody Non-Reactive Normal [facility] [facility] Comment on above: Performed By: #### 1 [id number] #### [facility] [address] [place] [address] Party Plan Sales Consultant: Navdeep Walker MD HIV 1O2on 12-22-2023 HIV Panel 1&2 Non-Reactive Normal [facility] Comment on above: Performed By: #### 1 [id number] #### [facility] [address] [place] [address] Party Plan Sales Consultant: Navdeep Walker MD LIPID PNLon 12-22-2023 Calculated LDL Cholesterol 137 mg/dL High 60-130 [facility] Comment on above: Result Comment: <100 mg/dl Optimal 100-129 mg/dl Near Optimal 130-159 mg/dl Borderline High 160-189 mg/dl High >=190 mg/dl Very High Performed By: #### 1 [id number], [id number], [id number], [id number], CD:[id number], [id number] #### [facility] [address] [place] [address] Party Plan Sales Consultant: Navdeep Walker MD Cholesterol [Mass/Vol] 208 mg/dL High 100-200 So [facility] Comment on above: Result Comment: Ann puncture should occur prior to N-Acetyl Cysteine (NAC) or Metamizole (Sulpyrine) administration due to the potential for falsely depressed results. Performed By: #### 1 [id number], [id number], [id number], [id number], CD:[id number], [id number] #### [facility] [address] [place] [address] Party Plan Sales Consultant: Navdeep Walker MD Cholesterol in HDL [Mass/Vol] 58 mg/dL Normal 40-60 [facility] Comment on above: Result Comment: Dire ct HDL Venipuncture should occur prior to metamizole (sulpyrine) administration due to the potential for falsely depressed results Performed By: #### 1 [id number], [id number], [id number], [id number], CD:[id number], [id number] #### [facility] [address] [place], [place] [id number] Party Plan Sales Consultant: Navdeep Walker MD Total Chol/HDL Chol Ratio 3.6 Normal [facility] Comment on above: Performed By: #### 1 [id number], [id number], [id number], [id number], CD:[id number], [id number] #### [facility] [address] [place] [address] Party Plan Sales Consultant: Navdeep Walker MD Triglyceride [Mass/Vol] 66 mg/dL Normal 30-150 S [facility] Comment on above: Result Comment: - Ve nipuncture should occur prior to N-Acetyl Cysteine (NAC) or Metamizole (Sulpyrine) administration due to the potential for falsely depressed results - Use of this assay is not recommended for patients being treated with etamsylate because it causes falsely decreased results Performed By: #### 1 [id number], [id number], [id number], [id number], CD:[id number], [id number] #### [facility] [address] [place] [address] Party Plan Sales Consultant: Navdeep Walker MD TSH with FT4 Reflexon 2023 TSH Qn 5.09 m[IU]/L High 0.55-4.78 [facility] Comment on above: Result Comment: - Do not use samples that contain fluorescein. Fluorescein levels > 0.24 ?g/mL may decrease results in this assay - Patients undergoing retinal fluorescein angiography can retain amounts of fluorescein in the body for up to 48?72 hours post-treatment. Such samples can produce falsely depressed values when tested with this assay, and should not be tested Reference Intervals (if applicable): First trimester: 0.6-3.4 uIU/mL Second trimester: 0.37-3.6 uIU/mL Third trimester: 0.38-4.04 uIU/mL Reference: [email or web address] (04/2023) Performed By: #### 1 [id number], [id number], [id number], [id number], CD:[id number], [id number] #### [facility] [address] [id number] Party Plan Sales Consultant: MD BRIAN Lutz KATELYN PATRICIO BILon 2022 BRIAN Sanders SINTIA JOSIE * * *Final Report* * * DATE OF EXAM: Dec 28 2022 8:27AM WRW [id number] - BRIAN Sanders SINTIA JOSIE / PROCEDURE REASON: Breast pain, right * * * * Physician Interpretation * * * * RESULT: #[id number] - BRIAN Sanders SINTIA JOSIE #[id number] - [facility] US BREAST LTD RT BILATERAL DIGITAL DIAGNOSTIC MAMMOGRAM TOMOSYNTHESIS WITH CAD: 12/28/2022 HISTORY: Breast Pain, Right /baseline mammogram Breast Pain, Right. RESULT: TECHNIQUE: The study was acquired using full field digital technology and interpreted from soft copy. Digital Breast Tomosynthesis (DBT) images were obtained and used to assist in the interpretation of this examination. Current study was also evaluated with a Computer Aided Detection (CAD). No prior exams were available for comparison. The tissue of both breasts is extremely dense, which lowers the sensitivity of mammography. No significant masses, calcifications, or other findings are seen in either breast. IMPRESSION: NEGATIVE There is no abnormality seen in the right breast to correspond with the palpable abnormality and pain, however, clinical correlation is recommended. There is no mammographic evidence of malignancy. LIMITED ULTRASOUND OF RIGHT BREAST: 12/28/2022 RESULT: No prior exams were available for comparison. Real-time ultrasound of the right breast 6-7 o'clock region was performed. Montiel scale images of the real-time examination were reviewed. IMPRESSION: NEGATIVE There is no sonographic evidence of malignancy. There is no abnormality seen in the right breast to correspond with the palpable abnormality and pain, however, clinical correlation is recommended. Anusha jimenes/marcy:12/28/2022 08:55:23 Multiple national specialty organizations have released breast cancer screening guidelines for women at average risk for developing breast cancer - guidelines that are based on both evidence and opinion, yet differ on when to start and how often to screen for breast cancer. With representation from Breast Imaging, Internal Medicine, Women's Health, Family Medicine, and Medical/Surgical Oncology, the [facility] has carefully reviewed the data and reached the following consensus: 1) All women should engage in shared decision-making with their providers to decide when to start and how often to screen; 2) All women should have the opportunity to start screening mammography at age 40; 3) For women ages 45-55, we recommend annual screening mammograms; 4) For women ages 55 and over, we support both the transition from an annual to a biennial interval if this aligns more with patient's values and preferences, or continuation with annual screening; 5) All women should discuss with their providers when to stop screening mammograms. Patient Registration Supervisor(s): Heather Gallardo, RT(R)(M), [facility]; Jacqui Cruz, [facility] OVERALL STUDY BIRADS: 1 Negative Psychometric Examiner: Marcy Transcribe Date/Time: Dec 28 2022 8:11A Dictated by: ANUSHA BENAVIDES MD This examination was interpreted and the report reviewed and electronically signed by: ANUSHA BENAVIDES MD on Dec 28 2022 8:55AM EST [id number] Normal [facility] US BREAST LTD RTon 12-28 [facility] [employer] BREAST LTD RT * * *Final Report* * * DATE OF EXAM: Dec 28 2022 8:50AM WRU [id number] - [facility] [employer] BREAST CureDM RT / PROCEDURE REASON: Breast pain, right * * * * Physician Interpretation * * * * #[id number] - [facility] DIAG W SINTIA JOSIE #[id number] - [facility] [employer] BREAST LTD RT BILATERAL DIGITAL DIAGNOSTIC MAMMOGRAM TOMOSYNTHESIS WITH CAD: 12/28/2022 HISTORY: Breast Pain, Right /baseline mammogram Breast Pain, Right. RESULT: TECHNIQUE: The study was acquired using full field digital technology and interpreted from soft copy. Digital Breast Tomosynthesis (DBT) images were obtained and used to assist in the interpretation of this examination. Current study was also evaluated with a Computer Aided Detection (CAD). No prior exams were available for comparison. The tissue of both breasts is extremely dense, which lowers the sensitivity of mammography. No significant masses, calcifications, or other findings are seen in either breast. IMPRESSION: NEGATIVE There is no abnormality seen in the right breast to correspond with the palpable abnormality and pain, however, clinical correlation is recommended. There is no mammographic evidence of malignancy. LIMITED ULTRASOUND OF RIGHT BREAST: 12/28/2022 RESULT: No prior exams were available for comparison. Real-time ultrasound of the right breast 6-7 o'clock region was performed. Montiel scale images of the real-time examination were reviewed. IMPRESSION: NEGATIVE There is no sonographic evidence of malignancy. There is no abnormality seen in the right breast to correspond with the palpable abnormality and pain, however, clinical correlation is recommended. Anusha jimenes/marcy:12/28/2022 08:55:23 Multiple national specialty organizations have released breast cancer screening guidelines for women at average risk for developing breast cancer - guidelines that are based on both evidence and opinion, yet differ on when to start and how often to screen for breast cancer. With representation from Breast Imaging, Internal Medicine, Women's Health, Family Medicine, and Medical/Surgical Oncology, the [facility] has carefully reviewed the data and reached the following consensus: 1) All women should engage in shared decision-making with their providers to decide when to start and how often to screen; 2) All women should have the opportunity to start screening mammography at age 40; 3) For women ages 45-55, we recommend annual screening mammograms; 4) For women ages 55 and over, we support both the transition from an annual to a biennial interval if this aligns more with patient's values and preferences, or continuation with annual screening; 5) All women should discuss with their providers when to stop screening mammograms. Patient Registration Supervisor(s): Heather Gallardo RT(R)(M), [facility]; Jacqui Cruz, [facility] OVERALL STUDY BIRADS: 1 Negative Psychometric Examiner: Marcy Transcribe Date/Time: Dec 28 2022 8:11A Dictated by : ANUSHA BENAVIDES MD This examination was interpreted and the report reviewed and electronically signed by: ANUSHA BENAVIDES MD on Dec 28 2022 8:55AM EST [id number] Normal [facility] Jean Carlos 11-25-2022 CNPN Telephone (RDXWS) VIRGINIA RODRIGUEZ ([id number]) 1985 F Date Time Provider Department 11/25/22 RHIANNON VIRGEN RDXWS During your visit today, we recorded the following information about you: Cally Ruanojuan, Mammo Tech 11/25/2022 3:[address] order for bilateral diagnostic mammogram due to breast imaging protocol for this patient's age. Thank you. Allergies As of Date: 11/25/2022 (No Known Allergies) Date Reviewed: 11/23/2022 Reviewed by: Jo Ann Baker LPN - Fully Assessed Reason for Visit: Orders [681] Primary Visit Diagnosis:Breast pain, right [N64.4] Order(s):[facility]RIAN DIAGNOSTIC BILATERAL [[id number]] Order #: [id number] FUTURE BREAST LTD LEFT [[id number]] Order #: [id number] FUTURE Prescriptions as of 11/25/2022 - DULoxetine (CYMBALTA) 30 mg capsule Take 30 mg by mouth q 24 HR. - levothyroxine (SYNTHROID) 50 mcg tablet Take 2 tablets by mouth once daily. 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] 03/28/2017 Heart burn [R12] 06/21/2017 Encounter Status:Closed by RHIANNON VIRGEN on 11/25/22 [facility] CNOVon 11-23-2022 CNOV Office Visit (OBGYWM ) VIRGINIA RODRIGUEZ ([id number]) 1985 F Date Time Provider Department 11/23/22 4:00 PM RHIANNON VIRGEN OBZORAIDAWShira During your visit today, we recorded the following information about you: Blood pressure Weight Last Period 98/60 62.3 kg 11/01/22 Rhiannon Virgen APRN.DONYA 11/23/2022 4:29 PM Signed Virginia Rodriguez is a 37 year old female who presents for problem visit breast pain and vaginal lump for 1 month(s). HPI: pt c/o breast pain on the right side that started a month ago with her period and has not subsided. She denies any skin or size changes and no nipple discharge. She also noticed a vaginal lump on the left side of the labia that started about 1 month also. She states that it looks like a pimple. 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 LMP: 11/01/2022, Having periods Age at Menarche: Age at First : Age at Menopause: Electrical Panel Builder History Comments: Sexual Activity: Yes; Male Contraception: Condom PAST MEDICAL HISTORY Diagnosis Date Depression Generalized anxiety disorder GERD (gastroesophageal reflux disease) Hypothyroidism NEGATIVE MEDICAL HISTORY PAST SURGICAL HISTORY Procedure Laterality Date NONE FAMILY HISTORY Problem Relation Age of Onset Thyroid Mother Hyperlipidemia Mother None Father other (Substance Abuse) Father Alcohol other (Diabetes Type 1) Brother type 1 Depression Brother None Sister Hypertension Maternal Grandmother Hyperlipidemia Maternal Grandmother other (Oral Cancer) Maternal Grandmother Hypertension Maternal Grandfather Hyperlipidemia Maternal Grandfather Heart disease Maternal Grandfather Hyperlipidemia Paternal Grandmother Hypertension Paternal Grandfather Hyperlipidemia Paternal Grandfather Diabetes Paternal Grandfather type 1 Mental illness Other Depression Other other (Substance Abuse) Other Social History Tobacco Use Smoking status: Never Smokeless tobacco: Never Vaping Use Vaping Use: Never used Substance Use Topics Alcohol use: Yes Comment: socially Drug use: No Current Outpatient Medications Medication Sig DULoxetine (CYMBALTA) 30 mg capsule Take 30 mg by mouth q 24 HR. levothyroxine (SYNTHROID) 50 mcg tablet Take 2 tablets by mouth once daily. Take 88 mcg No current facility-administered medications for this visit. Allergies As of Date: 11/23/2022 (No Known Allergies) Fully Assessed 11/23/2022 REVIEW OF SYSTEMS SEE HPI Expanded ROS: N/A Allergies and current medication updated:Yes EXAM: Wt 137 lb 6.4 oz (62.3kg) LMP 11/01/2022 GENERAL: pleasant, female in no apparent distress HEENT: Normocephalic, atraumatic, mucus membranes moist, and no lesions BREAST: soft, symmetric, no dominant mass, normal nipple-areolar complex, no lymphadenopathy, no nipple discharge, and dense area at the 3-4 o'clock position that is tender to palpation, the area expand from about 2 cm below the nipple to the inner aspect CHEST: Normal inspiratory effort PELVIC: external genitalia normal, normal Bartholin's glands, urethra, Wakefield's glands, physiologic discharge present, normal appearing perineal body and perianal region, small occulusion cyst NEURO: alert and oriented x3,exam grossly non-focal EXTREMITIES: normal ASSESSMENT/PLAN: 1. Breast pain, right - ICD9: 611.71, ICD10: N64.4 (primary diagnosis) - [facility] DIAGNOSTIC RIGHT - US BREAST LTD RIGHT 2. Vulvar cyst - ICD9: 624.8, ICD10: N90.7 No need for any treatment Rhiannon Virgen APRN.JEWELRY SETTER Medical Decision Making: Problems: Low: Acute, uncomplicated illness or injury Data: Unique test(s) ordered: 2 Risk: Low: Low risk from testing/treatment Medical Decision Making Level: 3 - Low Referring Provider: SELF [200] Allergies As of Date: 11/23/2022 (No Known Allergies) Date Reviewed: 11/23/2022 Reviewed by: Jo Ann Baker LPN - Fully Assessed Reason for Visit: Breast Problem [16] Primary Visit Diagnosis:Breast pain, right [N64.4] Other Visit Diagnosis:Vulvar cyst [N90.7] Order(s):[facility] DIAGNOSTIC RIGHT [[id number]] Order #: [id number] FUTURE US BREAST LTD RIGHT [[id number]] Order #: [id number] FUTURE Prescriptions as of 11/23/2022 - DULoxetine (CYMBALTA) 30 mg capsule Take 30 mg by mouth q 24 HR. - levothyroxine (SYNTHROID) 50 mcg tablet Take 2 tablets by mouth once daily. 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 Menses: cycles every 25-30 days and 2-3 days of flow. Contraception: condoms HPV vaccine: No Last Pap: 04/13/2021 normal HPV: 04/07/2021 negative History of abnormal pap: ?? HPV Last mammogram: never Sexually active: Yes Patient concerns for STD exposure: No. 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 History Comments: Sexual Activity: Yes; Male Contraception: Condom PAST MEDICAL HISTORY Diagnosis Date Depression Generalized anxiety disorder GERD (gastroesophageal reflux disease) Hypothyroidism NEGATIVE MEDICAL HISTORY PAST SURGICAL HISTORY Procedure Laterality Date NONE FAMILY HISTORY Problem Relation Age of Onset Thyroid Mother Hyperlipidemia Mother None Father other (Substance Abuse) Father Alcohol other (Diabetes Type 1) Brother type 1 Depression Brother None Sister Hypertension Maternal Grandmother Hyperlipidemia Maternal Grandmother other (Oral Cancer) Maternal Grandmother Hypertension Maternal Grandfather Hyperlipidemia Maternal Grandfather Heart disease Maternal Grandfather Hyperlipidemia Paternal Grandmother Hypertension Paternal Grandfather Hyperlipidemia Paternal Grandfather Diabetes Paternal Grandfather type 1 Mental illness Other Depression Other other (Substance Abuse) Other SOCIAL HISTORY Social History Tobacco Use Smoking status: Never Smokeless tobacco: Never Vaping Use Vaping Use: Never used Substance Use Topics Alcohol use: Yes Comment: socially Drug use: No REVIEW OF SYSTEMS Abdomen: No abdominal pain, nausea, vomiting, diarrhea, or constipation. No bloating, early satiety, indigestion, or increased flatulence. Bladder: No dysuria, gross hematuria, urinary frequency, urinary urgency, or incontinence. Breast: No breast lumps, nipple d/c, overlying skin changes, redness or skin retraction. Allergies and current medication updated:Yes EXAM: Ht 5' 4.5 (1.64m) Wt 139 lb (63.1kg) LMP 08/02/2022 BMI 23.50 kg/(m2). GENERAL: pleasant, female in no apparent distress HEENT: Normocephalic, atraumatic, and no lesions NECK: Supple, full range of motion, no adenopathy, and thyroid normal DERMATOLOGY: Normal, without lesions, non-icteric, and non-hirsute BREAST: soft, non-tender, symmetric, no dominant mass, normal nipple-areolar complex, no lymphadenopathy, and no nipple discharge CHEST: Normal inspiratory effort ABDOMEN: soft, non-tender, and no masses PELVIC: external genitalia normal, normal Bartholin's glands, urethra, Wakefield's glands, no vulvar lesions, no cervical lesions, good vaginal support, physiologic discharge present, normal appearing perineal body and perianal region BIMANUAL: uterus normal size, shape and consistency, no adnexal masses, and non-tender RECTOVAGINAL: deferred. NEURO: alert and oriented x3,exam grossly non-focal EXTREMITIES: normal ASSESSMENT/PLAN: 1) Health maintenance: Pap/HPV up to date. Mammogram starting age 40. Nutrition, exercise and routine health maintenance exams reviewed. Calcium/Vitamin D supplementation information provided. 2) Contraception: condoms. Contraceptive options reviewed and information provided. 3) STD screening: Declined STD check. 4) Follow up one year or sooner as needed Rhiannon Virgen APRN.DONYA Referring Provider: SELF [200] Allergies As of Date: 08/10/2022 (No Known Allergies) Date Reviewed: 08/10/2022 Reviewed by: Rhiannon Virgen APRN.JEWELRY SETTER - Fully Assessed Reason for Visit: Yearly Exam [187] Primary Visit Diagnosis:Encounter for gynecological examination (general) (routine) without abnormal findings [Z01.419] Order(s):levothyroxin e (SYNTHROID) 50 mcg tabletTake 2 tablets by mouth once daily. Take 88 mcgDisp: Rfl: Prescriptions as of 08/10/2022 - levothyroxine (SYNTHROID) 50 mcg tablet Take 2 tablets by mouth once daily. 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 Dis (more content not included)... 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 #[id number]; Last Updated By: Bret PulmonxAnnette; 05/31/2022 4:41:08 PM Health Maintenance Start: Azithromycin 250 MG Oral Tablet (Zithromax Z-Kishor); TAKE DIRECTED Rx By: Fercho Lane; Dispense: 0 Days ; #:1 X 6 Tablet Pack; Refill: 0;For: Health Maintenance; SRIRAM = N; Verified Transmission to [facility] #[id number]; Last Updated By: [place]; 05/31/2022 4:41:06 PM Start: Famotidine 20 MG Oral Tablet (Pepcid); one twice a day Rx By: Fercho Lane; Dispense: 0 Days ; #:10 Tablet; Refill: 0;For: Health Maintenance; SRIRAM = N; Verified Transmission to [facility]/PHARM[facility]Y #[id number]; Last Updated By: [place]; 05/31/2022 4:41:07 PM SocHx: Former smoker Tobacco Use Screening; Status:Complete; Done: 31May2022 Perform:Not Applicable;Ordered; For:SocHx: Former smoker; Ordered By:Fercho Lane; Patient Discussion/Summary Hypothyroidism Follow-up visit in 3-4 months Begin a exercise program.35 min 3 times per week Check your pulse 1 times a day Start eating more fiber Your ideal BMI 19-25 Call if: You begin to have tremors or your hands become shaky. gain or lose over 10 pounds without a change in your diet have symptoms of anxiety lose weight without trying to loss of memory seems to be worse Call [phone] if: You are having trouble staying awake experience a new kind of chest pain (angina) or pressure experience a seizure.; have fainted or passed out Seek Immediate Medical Attention if: you are feeling short of breath feel your heart is beating very fast or skipping beats Advised. 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 Cardiac Catheterization Technician patients on the importance of weight loss for patients that are overweight and refer to obesity guideline. BMI >30 increased risk of GERD: Provide education and counseling related to weight loss such as diet and exercise. Educate and engage the patient to determine the best patient specific treatment plan. For patients with a BMI 30-34.9, consider education related to diet and exercise, medications, and balloons. For patients with a BMI >35 consider referral for additional support such as targeted weight loss education or additional treatment options such as diet and exercise, medications, and balloons. If the patient has comorbidities, they may be considered a surgical candidate, consider referral if indicated. Erosive esophagitis Barretts esophagus Esophageal strictures Esophageal adenocarcinoma Asthma Chronic laryngitis Laryngeal and tracheal stenosis Chronic cough Dental erosions Chronic sinusitis Recurrent pneumonitis Eating and Lifestyle Risk factors Elevated body mass index (BMI) is associated with increased GERD risk Elevated dietary fat intake is linked to a higher risk of GERD and erosive esophagitis. Carbonated drink consumption is a risk factor for heartburn during sleep in patients with GERD GOAL= improve quality of life/ complication prevention Follow-up every 3-4 months if no better advised to see managed services sales consultant for further workup Chief Complaint Chief Complaints Visit For: Other A telephone visit (audio only) between the patient (at the originating site) and the provider (at the distant site) was utilized to provide this telehealth service. fever, vomiting Adult Risk Screening Initial Fall Risk Screening: [place] has not fallen in the last 6 months. History of Present Illness 37-year-old patient with history of (more content not included)... Normal M86 Security Tobacco Screening.on 022 Fall risk assessment a) No falls within the last year -[facility] Work Phone: Tobacco use status CPHS b) No M P-[facility] Work Phone: THYROXINE,FREEon 12-09-2021 THYROXINE,FREE 1.25 ng/dL Normal 0.78 - 1.48 [facility] Comment on above: Result Comment: Thyr oxine Free testing is performed using different testing methodology at [facility] than at other [facility]. Direct result comparisons should only be made within the same method. Performed By: #### T 4FRE #### [facility] [address] [place] [address] TRIIODOTHYRONINE,FREEon TRIIODOTHYRONINE,FREE 3.2 pg/mL Normal 2.3 - 4.2 [facility] Comment on above: Performed By: #### T 3FRE #### [facility] [address] [place] [address] TSHon 12-09-2021 TSH Qn 3.08 m[IU]/L Normal 0.44 - 3.98 [facility] Comment on above: Result Comment: TSH testing is performed using different testing methodology at [facility] than at other [facility]. Direct result comparisons should only be made within the same method. Performed By: #### T SH2 #### [facility] [address] 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 gain or lose over 10 pounds without a change in your diet have symptoms of anxiety lose weight without trying to loss of memory seems to be worse Call [phone] if: You are having trouble staying awake experience a new kind of chest pain (angina) or pressure experience a seizure.; have fainted or passed out Seek Immediate Medical Attention if: you are feeling short of breath feel your heart is beating very fast or skipping beats Advised. TSH, lipid profile, fasting blood sugar every 6 months and EKG once a year Provider Impressions This is a 36-year-old patient hypothyroidism anxiety depression Florencia's hyperlipidemia ADD ADHD complaining of arthralgia myalgia fatigue tired Anxiety depression Wellbutrin Paxil Hypothyroidism levothyroxine Hyperlipidemia low-fat diet Patient is a 36-year-old not with 2 brother 1 sister in good health Mother father of hypertension thyroid dysfunction Major depressive disorder Advice= Serum cortisol B12 and folic acid TSH CMP Avoid alcoholic beverages.; Status:Complete; Be sure to get at least 8 hours of sleep every nighti; Continue with our present treatment plan. Decreasing the stress in your life may help your condition improve Please bring all medicines, vitamins, and herbal supplements with you when you come to the office Regular aerobic exercise can help reduce stress You need to quit smoking. And alcohol or any drugs Call if: The symptoms are not better in 2 weeks The symptoms seem worse Your depression is worse Your moods often change suddenly for no reason.; Your symptoms return during treatment Call [phone] if: You are thinking about harming yourself or someone else Call 911 if: You have feelings of hopelessness, not wanting to live, wanting to harm yourself, or you are thinking about dying Seek Immediate Medical Attention if he had a suicidal ideation GOAL= PHQ LESS TIFFANIE 4 Follow-up 3-[address] Orozco At age of 36 female skin cancer cervical cancer screening flu pneumonia COVID-19 vaccines follow-up in 3 months patient is not suicidal Chief Complaint Chief Complaints Visit For: Other follow up Adult Risk Screening Initial Fall Risk Screening: [place] has not fallen in the last 6 months. History of Present Illness Lovenox Review of Systems Constitutional: no fever, no chills, not feeling poorly, not feeling tired, no recent weight gain and no recent weight loss. ENT: no earache, no hearing loss, no nosebleeds, no nasal discharge, no sore throat and no hoarseness. Cardiovascular: the heart rate was not slow, the heart rate was not fast, no chest pain, no palpitations, no intermittent leg claudication and no lower extremity edema. Respiratory: no cough, not coughing up sputum and no wheezing that is consistent with asthma. Gastrointestinal: no abdominal pain, no constipation, no melena, no nausea, no diarrhea, no vomiting and no blood in stools. Musculoskeletal: no arthralgias, no myalgias, no back pain, no joint swelling, no joint stiffness, no limb pain and no limb swelling. Integumentary: no skin rashes, no skin lesions, no itching, no skin wound and no dry skin. Neurological: no headache, no confusion, no numbness, no dizziness, no tingling and no fainting. All other systems have been reviewed and are negative for complaint. 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.2) (E06.3) Hyperlipidemia (272.4) (E78.5) Past Medical History Problems History of vitamin D deficiency (V12.1) (Z86.39) Resolved Date: 21 Apr 2021 History of No history of previous surgery Family History Mother Family history of thyroid disease (V18.19) (Z83.49) Sibling Family history of diabetes mellitus (V18.0) (Z83.3) Social History Problems Former smoker (V15.82) (Z87.891) Allergies Medication No Known Drug Allergies Recorded By: Fercho Lane; 01/01/2020 2:50:55 PM Current Meds Medication NameInstruction Escitalopram Oxalate 20 MG Oral TabletTAKE 1 TABLET BY MOUTH EVERY DAY Levothyroxine Sodium 88 MCG Oral TabletTAKE 1 TABLET Daily in the AM TUESDAY THROUGH TUESDAY AND 07/05 ON TUESDAY AND TUESDAY Physical Exam Constitutional General appearance: Alert and in no acute distress. Eyes Inspection of eyes: Sclera and conjunctiva were normal. Pupil exam: Pupils we (more content not included)... [facility] T3 - Free Triiodothyronine, Serumon 12-08-2021 Free T3 [Mass/Vol] 3.2 pg/mL 2.3 - 4.2 [facility] Work Phone: T4 - Free Thyroxine, Serumon 12-08-2021 Free T4 [Mass/Vol] 1.25 ng/dL See Below [facility] Work Phone: Comment on above: Reference Range: 0.7 8 - 1.48 Thyroxine Free testing is performed using different testing methodology at [facility] than at other [facility]. Direct result comparisons should only be made within the same method. TSH - Thyroid Stimulating Ho rmone, Serumon 12-08-2021 TSH Qn 3.08 m[IU]/L See Below [facility] Work Phone: Comment on above: Reference Range: 0.4 4 - 3.98 TSH testing is performed using different testing methodology at [facility] than at [facility]. Direct result comparisons should only be made within the same method. Tobacco Screening.on Fall risk assessment a) No falls within the last year [facility] Work Phone: Tobacco use status CPHS b) No M [facility] Work Phone: TSH - Thyroid Stimulating Ho rmone, Serumon 04-21-2021 TSH Qn 0.26 m[IU]/L below low threshold See Below [facility] Work Phone: Comment on above: Reference Range: 0.4 4 - 3.98 TSH testing is performed using different testing methodology at [facility] than at [facility]. Direct result comparisons should only be made within the same method. Tobacco Screening.on Fall risk assessment a) No falls within the last year [facility] Work Phone: Tobacco use status CPHS b) No M [facility] Work Phone: Tobacco Screening.on Fall risk assessment a) No falls within the last year [facility] Work Phone: Tobacco use status [facility]PHS b) No M [facility] Work Phone: ED NOTEon 08-08-2019 ED NOTE HNO ID: [id number] Author: Rosa Jones DO Service: Emergency Medicine Author Type: Physician Type: ED Notes Filed: 08/08/2019 9:36 AM Note Text: TEACHING ATTESTATION: I personally saw and examined the patient. I reviewed the resident?s note. I agree with the resident?s assessment and plan unless otherwise noted. This is a 34-year-old female presents to the emergency department with flulike symptoms, cough, fever, chills, nausea. Patient seen with Dr. Nelson, resident physician, please see her note for full history and physical exam. Patient has no rhonchorous sounds on lung exam. She is positive for Influenza B. She'll be treated appropriately with Tamiflu and discharged home. Discharged in stable condition. Normal [facility] ED PROV NOTEon 08-08-2019 ED PROV NOTE HNO ID: [id number] Author: Rosa Jones DO Service: Emergency Medicine Author Type: Physician Type: ED Provider Notes Filed: 08/11/2019 8:29 PM Note Text: ED Provider Note Patient Name: Virginia Rodriguez SERVICE DATE: 08/08/19 History Patient presents with: Flu Like Symptoms: Starting Tuesday, fever, + cough, productive, clear, + emesis this morning, right sided CP burning and squeezing 34 yo female with PMHx GERD, hypothyroid presents for evaluation of flu like symptoms. 2 days ago had onset of cough with clear sputum and right sided chest pain with shortness of breath. Has had associated chills, body aches, sore throat. This morning had onset of nausea and vomiting. No abdominal pain or diarrhea. No urinary symptoms. 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 Did recently drive to and from [place]. No lower extremity swelling or pain. No other DVT/PE risk factors. PAST MEDICAL HISTORY Diagnosis Date - GERD (gastroesophageal reflux disease) - Hypothyroidism - NEGATIVE MEDICAL HISTORY PAST SURGICAL HISTORY Procedure Laterality Date - NONE FAMILY HISTORY Problem Relation Age of Onset - Thyroid Mother - Hyperlipidemia Mother - None Father - other (Substance Abuse) Father Alcohol - other (Diabetes Type 1) Brother type 1 - Depression Brother - None Sister - Hypertension Maternal Grandmother - Hyperlipidemia Maternal Grandmother - other (Oral Cancer) Maternal Grandmother - Hypertension Maternal Grandfather - Hyperlipidemia Maternal Grandfather - Heart disease Maternal Grandfather - Hyperlipidemia Paternal Grandmother - Hypertension Paternal Grandfather - Hyperlipidemia Paternal Grandfather - Diabetes Paternal Grandfather type 1 - Mental illness Other - Depression Other - other (Substance Abuse) Other Social History Tobacco Use - Smoking status: Never Smoker - Smokeless tobacco: Never Used Substance and Sexual Activity - Alcohol use: Yes Binge frequency: Monthly Comment: socially - Drug use: No - Sexual activity: Yes Partners: Male ALLERGIES No Known Allergies Review of Systems Constitutional: Positive for chills. Negative for fever. HENT: Negative for congestion and rhinorrhea. Eyes: Negative for visual disturbance. Respiratory: Positive for cough and shortness of breath. Cardiovascular: Positive for chest pain. Gastrointestinal: Positive for nausea and vomiting. Negative for abdominal pain and diarrhea. Genitourinary: Negative for dysuria and hematuria. Musculoskeletal: Positive for myalgias. Negative for arthralgias. Skin: Negative for color change and rash. Neurological: Negative for weakness, numbness and headaches. Physical Exam BP 107/88 Pulse 99 Temp 99.5 Resp 18 Ht 5' 3 (1.60m) Wt 130 lb (59.0kg) SpO2 99% BMI 23.03 kg/(m2). O2 Therapy: Room Air Physical Exam Vitals signs and nursing note reviewed. HENT: Head: Normocephalic and atraumatic. Mouth/Throat: Mouth: Mucous membranes are moist. Pharynx: No oropharyngeal exudate. Eyes: Conjunctiva/sclera: Conjunctivae normal. Pupils: Pupils are equal, round, and reactive to light. Neck: Musculoskeletal: Normal range of motion. Cardiovascular: Rate and Rhythm: Normal rate and regular rhythm. Pulses: Normal pulses. Heart sounds: Normal heart sounds. Pulmonary: Effort: Pulmonary effort is normal. Breath sounds: Normal breath sounds. No wheezing. Chest: Chest wall: Tenderness (tenderness to right anterior chest wall) present. Abdominal: General: Abdomen is flat. There is no distension. Palpations: Abdomen is soft. Tenderness: There is no abdominal tenderness. Musculoskeletal: Normal range of motion. Right lower leg: No edema. Left lower leg: No edema. Lymphadenopathy: Cervical: No cervical adenopathy. Skin: General: Skin is warm and dry. Capillary Refill: Capillary refill takes less than 2 seconds. Neurological: General: No focal deficit present. Mental Status: She is alert. Cranial Nerves: No cranial nerve deficit. Sensory: No sensory deficit. Motor: No weakness or abnormal muscle tone. Diagnostic Testing ED Labs Ordered and Reviewed - No data to display Procedures ED Course / Clinical Impression Clinical Impressions as of Aug 08 2110 Influenza MDM / Disposition / Plan 34 yo female with PMHx GERD, hypothyroid presents for evaluation of flu like symptoms. Mild tachycardia, otherwise vital signs within normal limits. On physical exam patient has intermittent cough and tenderness to right anterior chest wall, otherwise no significant findings. Concern for viral URI verus influenza versus pneumonia. Given zofran and albuterol nebulizer. EKG shows normal sinus rhythm with no significant ST segment or T wave abnormalities. Rapid flu/RSV is positive for influenza B. Chest X-ray is negative. Patient given first dose of tamiflu here. Repeat vital signs during ED course showed elevated temperature of 38.1C. Patient given tylenol. Patient discharged in stable condition with prescription for tamiflu and zofran. Advised to follow up with PCP and return precautions to ED discussed. The patient was DISCHARGED: Counseled patient regarding lab results AND radiology results AND suspected diagnosis AND need for follow-up. Discharged home with verbal and written instructions. They were instructed to return as needed for persistent or worsening symptoms or any new concerns. Given a prescription for the following medication(s): tamiflu and zofran Condition at time of disposition: stable SIGNATURE: MD Xiao Valerio (Res) MD Omar Resident 08/08/192116 Rosa Jones DO 08/11/192028 Normal [facility] Influenza A, B and RSV by PC Adalberto 08-08-2019 Influenza A by PCR Negative Normal Negative [facility] Comment on above: Performed By: #### F LUR #### [place] [address] Influenza B by PCR Positive Abnormal Negative [facility] Comment on above: Performed By: #### F LUR #### [place] [address] RSV by PCR Negative Normal Negative [facility] Comment on above: Performed By: #### F LUR #### [place] [address] XR CHEST 2V FRONTAL/LATon XR CHEST 2V FRONTAL/LAT * * *Final Repor t* * * DATE OF EXAM: Aug 08 2019 8:26AM AKX [id number] - XR CHEST 2V FRONTAL/LAT / PROCEDURE REASON: Chest pain * * * * Physician Interpretation * * * * EXAMINATION: CHEST RADIOGRAPH (2 VIEW FRONTAL & LATERAL) CLINICAL HISTORY: Chest pain, Cough, new onset MQ: XC2_5 Comparison: None RESULT: Lines, tubes, and devices: 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 Lungs and pleura: No consolidation. No pleural effusion. No pneumothorax. Cardiomediastinal silhouette: Normal cardiomediastinal silhouette. Other: Osseous structures are unremarkable. IMPRESSION: No acute radiographic abnormality. Psychometric Examiner: MARCIAL Transcribe Date/Time: Aug 08 2019 8:40A Dictated by : CHIOMA LALA MD This examination was interpreted and the report reviewed and electronically signed by: CHIOMA LALA MD on Aug 08 2019 8:40AM EST Normal [facility] (AGPOB1[facility] [place] RODRIGUEZ ([id number]) 1985 F Date Time Provider Department 07/24/19 MACIEL SOUZA AGPOB1 During your visit today, we recorded the following information about you: Maciel Souza MD 07/24/2019 1:26 PM Signed Improvement in her TSH noted since she has been on the synthroid. It is close to normal but still has some more to go. Since she is clinically improving, I would like to give it an extra 6-8 weeks and check it. It if has normalized then we will keep it. If it is the same or worse then I will increase her dose of synthroid. Order for TSH in 6 weeks placed. MD Reshma Merrill LPN 07/24/2019 1:43 PM Signed Left message to return call to nursing. Katherine Nguyen 07/25/2019 8:09 AM Signed Lab order printed at [facility] and I mailed it with a note to complete in 6 weeks. 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, E06.3] Order(s):TSH, REFLEX [[id number]] Order #: [id number] FUTURE Prescriptions as of 07/24/2019 Sig: LEVOTHYROXINE 50 MCG TABLET Take 1 tablet by mouth once d* PROMETHAZINE 25 MG TABLET Take 1 tablet by mouth every * HYOSCYAMINE SULFATE 0.125 MG * Take 1 tablet by mouth every * Problem List As Of Date 07/24/2019 Noted Resolved Abnormal results of thyroid function studies [R*03/21/2017 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 Patient is a 34 year old year old White female who presenting today with a chief complaint of Thyroid Problem. Patient is here for follow-up regarding her hypothyroidism. Patient was last seen about 2-3 months ago as a new patient. She had been off her medication for at least a year and was started on her 50 ?g of Synthroid. Patient states she is compliant with her medications. She has noticed less fatigue since she is on the medication. She denies any constipation, abdominal pain, heavy menstrual periods, cold intolerance associated with this. She denies any chest pain or heart palpitations as well. Other review of systems as documented below. Health maintenance DTAP,TDAP,TD(1 - Tdap) due on 1998 Subjective Review of Systems Constitutional: Negative for chills, fatigue and fever. Respiratory: Negative for cough and shortness of breath. Cardiovascular: Negative for chest pain and palpitations. Gastrointestinal: Negative for abdominal pain, constipation, diarrhea and nausea. Endocrine: Negative for cold intolerance and heat intolerance. Genitourinary: Negative for menstrual problem. Skin: Negative for rash. Psychiatric/Behaviora l: The patient is not nervous/anxious. Allergies Patient has no known allergies. Home Medications levothyroxine (SYNTHROID) 50 mcg tablet, Take 1 tablet by mouth once daily. promethazine (PHENERGAN) 25 mg tablet, Take 1 tablet by mouth every 6 hours as needed for Nausea/Vomiting. hyoscyamine (LEVSIN) 0.125 mg tablet, Take 1 tablet by mouth every 8 hours as needed for up to 7 days. Vital Signs BP 88/52 Pulse 80 Temp 36.1 ?C (97 ?F) Ht 162.6 cm (5' 4) Wt 59.9 kg (132 lb) BMI 22.66 kg/m? Last 3 Encounter BP Readings: Date: BP: 07/23/2019 88/52 05/14/2019 84/60 05/13/2019 112/74 Last 3 Encounter Wt Readings: Date: Wt: 07/23/2019 132 lb (59.9 kg) 05/14/2019 130 lb 9.6 oz (59.2 kg) 05/13/2019 130 lb (59 kg) Physical Exam Physical Exam Constitutional: She is oriented to person, place, and time and well-developed, well-nourished, and in no distress. No distress. HENT: Head: Normocephalic and atraumatic. Eyes: Pupils are equal, round, and reactive to light. Cardiovascular: Normal rate and regular rhythm. Pulmonary/Chest: Effort normal and breath sounds normal. No respiratory distress. She has no wheezes. Abdominal: Soft. She exhibits no distension. There is no abdominal tenderness. Musculoskeletal: General: No tenderness, deformity or edema. Neurological: She is alert and oriented to person, place, and time. Skin: Skin is warm and dry. She is not diaphoretic. Psychiatric: Affect and judgment normal. Nursing note and vitals reviewed. Assessment and Plan ASSESSMENT/PLAN: 1. Acquired hypothyroidism - ICD9: 244.9, ICD10: E03.9 - Instructed patient on importance of taking on an empty stomach either first thing in the morning or at bedtime. - check TSH in 4 months - continue current dose of Synthroid 0.050 mg - Follow up in 4 months Stable - TSH, REFLEX - LEVOTHYROXINE 50 MCG TABLET Plan: TSH. Order for recheck. Is doing well. Continue with the current dose of Synthroid and follow-up in 4 months. Discussed the above plan with the attending. Patient or patient's responsible parent/guardian was in agreement with the plan and verbalized understanding. Part of this note has been created using voice recognition software. It may contain errors which are inherent in voice-recognition technology. Maciel Souza MD Family Medicine Residency Program [facility] Referring Provider: SELF [200] Allergies As of Date: 07/23/2019 (No Known Allergies) Date Reviewed: 05/14/2019 Reviewed by: Otto Manning ([facility]) - Fully Assessed Reason for Visit: Thyroid Problem [110] Reason For Visit History Recorded Primary Visit Diagnosis:Acquired hypothyroidism [E03.9] Order(s):TSH, REFLEX [[id number]] Order #: [id number] FUTURE levothyroxine (SYNTHROID) 50 mcg tabletTake 1 tablet by mouth once daily.Disp: 30 tabletRfl: 1 Prescriptions as of 07/23/2019 Sig: LEVOTHYROXINE 50 MCG TABLET Take 1 tablet by mouth once d* PROMETHAZINE 25 MG TABLET Take 1 tablet by mouth every * HYOSCYAMINE SULFATE 0.125 MG * Take 1 tablet by mouth every * Problem List As Of Date 07/23/2019 Noted Resolved Abnormal results of thyroid function studies [R*03/21/2017 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 Medications Discontinued During This Encounter levothyroxine (SYNTHROID) 50 mcg tab* 90 t* 1 05/14/2019 07/23/2019 Route: ORAL Sig: Take 1 tablet by mouth once daily. Disc: Reason for discontinue is not on file. Disposition: Return in about 4 months (around 11/21/2019). Follow-up and Disposition History Recorded Encounter Status:Closed by MACIEL SOUZA MD on 07/23/19 Chart Close Cosign Required by: Rhiannon Montilla[] [facility] Free Thyroxineon 07-23-2019 Free T4 [Mass/Vol] 0.96 ng/dL Normal 0.76-1.46 [facility] Comment on above: Performed By: #### F T4 #### [facility] [address] [address] PROGRESSon 07-23-2019 PROGRESS HNO ID: [id number] Author: Rhiannon Montilla Service: ? Author Type: Physician Type: Progress Notes Filed: 07/23/2019 4:16 PM Note Text: Attending Note I agree with the resident's findings and plan as documented and have discussed the case and management of the patient's care with the resident. I agree with the sanders elements of the history. I agree with the sanders elements of the physical exam. I reviewed the findings with the resident, . I agree with the diagnosis of Acquired hypothyroidism (primary encounter diagnosis) and agree with the resident's plan of care. See resident's note for furthur details. [facility] PROGRESS HNO ID: [id number] Author: Maciel Souza Service: ? Author Type: Resident Type: Progress Notes Filed: 07/23/2019 4:14 PM Note Text: The history is provided by the patient. Patient is a 34 year old year old White female who presenting today with a chief complaint of Thyroid Problem. Patient is here for follow-up regarding her hypothyroidism. Patient was last seen about 2-3 months ago as a new patient. She had been off her medication for at least a year and was started on her 50 ?g of Synthroid. Patient states she is compliant with her medications. She has noticed less fatigue since she is on the medication. She denies any constipation, abdominal pain, heavy menstrual periods, cold intolerance associated with this. She denies any chest pain or heart palpitations as well. Other review of systems as documented below. Health maintenance DTAP,TDAP,TD(1 - Tdap) due on 1998 Subjective Review of Systems Constitutional: Negative for chills, fatigue and fever. Respiratory: Negative for cough and shortness of breath. Cardiovascular: Negative for chest pain and palpitations. Gastrointestinal: Negative for abdominal pain, constipation, diarrhea and nausea. Endocrine: Negative for cold intolerance and heat intolerance. Genitourinary: Negative for menstrual problem. Skin: Negative for rash. Psychiatric/Behaviora l: The patient is not nervous/anxious. Allergies Patient has no known allergies. Home Medications levothyroxine (SYNTHROID) 50 mcg tablet, Take 1 tablet by mouth once daily. promethazine (PHENERGAN) 25 mg tablet, Take 1 tablet by mouth every 6 hours as needed for Nausea/Vomiting. hyoscyamine (LEVSIN) 0.125 mg tablet, Take 1 tablet by mouth every 8 hours as needed for up to 7 days. Vital Signs BP 88/52 Pulse 80 Temp 36.1 ?C (97 ?F) Ht 162.6 cm (5' 4) Wt 59.9 kg (132 lb) BMI 22.66 kg/m? Last 3 Encounter BP Readings: Date: BP: 07/23/2019 88/52 05/14/2019 84/60 05/13/2019 112/74 Last 3 Encounter Wt Readings: Date: Wt: 07/23/2019 132 lb (59.9 kg) 05/14/2019 130 lb 9.6 oz (59.2 kg) 05/13/2019 130 lb (59 kg) Physical Exam Physical Exam Constitutional: She is oriented to person, place, and time and well-developed, well-nourished, and in no distress. No distress. HENT: Head: Normocephalic and atraumatic. Eyes: Pupils are equal, round, and reactive to light. Cardiovascular: Normal rate and regular rhythm. Pulmonary/Chest: Effort normal and breath sounds normal. No respiratory distress. She has no wheezes. Abdominal: Soft. She exhibits no distension. There is no abdominal tenderness. Musculoskeletal: General: No tenderness, deformity or edema. Neurological: She is alert and oriented to person, place, and time. Skin: Skin is warm and dry. She is not diaphoretic. Psychiatric: Affect and judgment normal. Nursing note and vitals reviewed. Assessment and Plan ASSESSMENT/PLAN: 1. Acquired hypothyroidism - ICD9: 244.9, ICD10: E03.9 - Instructed patient on importance of taking on an empty stomach either first thing in the morning or at bedtime. - check TSH in 4 months - continue current dose of Synthroid 0.050 mg - Follow up in 4 months Stable - TSH, REFLEX - LEVOTHYROXINE 50 MCG TABLET Plan: TSH. Order for recheck. Is doing well. Continue with the current dose of Synthroid and follow-up in 4 months. Discussed the above plan with the attending. Patient or patient's responsible parent/guardian was in agreement with the plan and verbalized understanding. Part of this note has been created using voice recognition software. It may contain errors which are inherent in voice-recognition technology. Maciel Souza MD Family Medicine Residency Program [facility] Normal [facility] TSH Reflexon 07-23-2019 TSH Qn 3.990 uIU/mL High 0.358-3.740 [facility] Comment on above: Result Comment: Free T4 reflexed if TSH is less than or greater than the reference range. Performed By: #### T SHR #### [place] [address] CNOVon 05-14-2019 CNOV Office Visit (AG[facility]M) VIRGINIA RODRIGUEZ ([id number]) 1985 F Date Time Provider Department 05/14/19 11:20 AM MACIEL SOUZA [facility] During your visit today, we recorded the following information about you: Temperature Pulse Blood pressure Weight 97.8 degrees 80/minute 84/60 59.2 kg Height 1.6 m Maciel Souza MD 05/14/2019 11:34 AM Signed [facility] NEW PATIENT HANDP Encounter date: 05/14/2019 SUBJECTIVE CC: Establish care HPI: Virginia Rodriguez is a 34 year old female presenting to the [facility] to establish care. Unless otherwise noted, history was obtained from the patient. I have updated patient's relevant past and current medical history, past surgical history, social history, family history, current medications and allergies into the medical record. 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 Component Latest Ref Rng AND Units 05/13/2019 WBC 3.70 - 11.00 k/uL 7.25 RBC 3.90 - 5.20 m/uL 4.18 Hemoglobin 11.5 - 15.5 g/dL 12.3 Hematocrit 36.0 - 46.0 % 37.5 MCV 80.0 - 100.0 fL 89.7 MCH 26.0 - 34.0 pG 29.4 MCHC 30.5 - 36.0 g/dL 32.8 RDW-CV 11.5 - 15.0 % 12.6 Platelet Count 150 - 400 k/uL 228 MPV 9.0 - 12.7 fL 9.6 Neut% % 75.1 Abs Neut (ANC) 1.45 - 7.50 k/uL 5.45 Lymph% % 18.5 Abs Lymph 1.00 - 4.00 k/uL 1.34 Roberts% % 5.1 Abs Roberts <0.87 k/uL 0.37 Eosin% % 0.7 Abs Eosin <0.46 k/uL 0.05 Baso% % 0.6 Abs Baso <0.11 k/uL 0.04 Nucleated Reds 0 /100 WBC 0.0 Absolute nRBC <0.01 k/uL <0.01 Diff Type Auto Diff Protein, Total 6.3 - 8.0 g/dL 7.0 Albumin 3.9 - 4.9 g/dL 4.5 Calcium 8.5 - 10.2 mg/dL 8.8 Bilirubin, Total 0.2 - 1.3 mg/dL 0.2 Alkaline Phosphatase 34 - 123 U/L 52 AST 13 - 35 U/L 17 Glucose 74 - 99 mg/dL 93 BUN 7 - 21 mg/dL 9 Creatinine 0.58 - 0.96 mg/dL 0.59 Sodium 136 - 144 mmol/L 137 Potassium 3.7 - 5.1 mmol/L 3.7 Chloride 97 - 105 mmol/L 102 CO2 22 - 30 mmol/L 24 Anion Gap 9 - 18 mmol/L 11 ALT 7 - 38 U/L 11 eGFR- >60 >60 eGFR-All Other Races >60 . >60 Color Yellow Yellow Clarity Clear Hazy (A) Glucose, Urine Negative mg/dL Negative Bilirubin, Urine Negative Negative Ketones, Urine Negative Negative Specific [place], Ur 1.005 - 1.030 1.015 Hemoglobin/Blood,Ur Negative Negative pH, Urine 4.5 - 8.0 8.5 (H) Protein, Urine Negative mg/dL Negative Urobilinogen 0.2 - 1.0 0.2 Nitrites Negative Negative Leukest Negative Negative WBC, Urine 0 - 5 /HPF 0-5 RBC, Urine 0 - 3 /HPF 0-3 Epithelial Cells /HPF SEE COMMENT Amorphous Crystals Many Cast 0 /LPF SEE COMMENT Phencyclidine Negative Negative Benzodiazepines Urine Negative Negative Cocaine Urine Negative Negative Amphetamines Negative Negative THC Negative Preliminary positive. (A) Opiates Negative Negative Barbiturates Urine Negative Negative Ethanol, Urine <11 mg/dL 162 (H) Oxycodone, Urine Negative Negative Magnesium 1.7 - 2.3 mg/dL 1.9 Lipase 16 - 61 U/L 24 HCG Qualitative, Urine Negative Negative Lactate 0.5 - 2.0 mmol/L 1.3 CT abd/pelvis IMPRESSION: 1. Bowel wall thickening of the right hemicolon to the level of the hepatic flexure with mild adjacent inflammation. No pneumatosis or free intraperitoneal air. Findings may could be suggestive of ischemic colitis given distribution. Alternatively, infectious/inflammato ry process is possible. ROS: Review of Systems Constitutional: Positive for malaise/fatigue. Negative for chills and fever. Respiratory: Negative for cough, shortness of breath and wheezing. Cardiovascular: Negative for chest pain and palpitations. Gastrointestinal: Positive for abdominal pain (cramping). Negative for blood in stool, constipation, diarrhea, heartburn, nausea and vomiting. Genitourinary: Negative for dysuria and urgency. Skin: Negative for itching and rash. Neurological: Negative for dizziness and headaches. Psychiatric/Behaviora l: Negative for depression, hallucinations, substance abuse and suicidal ideas. The patient is not nervous/anxious and does not have insomnia. PMH: PAST MEDICAL HISTORY Diagnosis Date - GERD (gastroesophageal reflux disease) - Hypothyroidism - NEGATIVE MEDICAL HISTORY FH: Family History Problem Relation Age of Onset - Thyroid Mother - Hyperlipidemia Mother - None Father - other (Substance Abuse) Father Alcohol - other (Diabetes Type 1) Brother type 1 - Depression Brother - None Sister - Hypertension Maternal Grandmother - Hyperlipidemia Maternal Grandmother - other (Oral Cancer) Maternal Grandmother - Hypertension Maternal Grandfather - Hyperlipidemia Maternal Grandfather - Heart disease Maternal Grandfather - Hyperlipidemia Paternal Grandmother - Hypertension Paternal Grandfather - Hyperlipidemia Paternal Grandfather - Diabetes Paternal Grandfather type 1 - Mental illness Other - Depression Other - other (Substance Abuse) Other SH: Social History Tobacco Use - Smoking status: Never Smoker - Smokeless tobacco: Never Used Substance Use Topics - Alcohol use: Yes Binge frequency: Monthly Comment: socially - Drug use: No CURRENT MEDICAL PROBLEMS: Problem List Noted Noted By Resolved Resolved By Heart burn 06/21/2017 Suyapa Patel No Florencia's thyroiditis 03/28/2017 Suyapa Patel No Abnormal results of thyroid function studies 03/21/2017 Suyapa Patel No ALLERGIES: ALLERGIES No Known Allergies MEDS: promethazine (PHENERGAN) 25 mg tablet, Take 1 tablet by mouth every 6 hours as needed for Nausea/Vomiting. hyoscyamine (LEVSIN) 0.125 mg tablet, Take 1 tablet by mouth every 8 hours as needed for up to 7 days. levothyroxine (SYNTHROID) 50 mcg tablet, Take 50 mcg by mouth. No current facility-administered medications on file prior to visit. OBJECTIVE Vital Signs: 05/14/19 1046 BP: 84/60 BP Site: Left Arm BP Position: Sitting BP Cuff Size: Regular Adult Pulse: 80 Temp: 36.6 ?C (97.8 ?F) TempSrc: Temporal Weight: 130 lb 9.6 oz (59.2 kg) Height: 5' 3 (1.6 m) Body mass index is 23.13 kg/m?. Physical Exam: Physical Exam Constitutional: She is oriented to person, place, and time and well-developed, well-nourished, and in no distress. No distress. HENT: Head: Normocephalic and atraumatic. Eyes: Pupils are equal, round, and reactive to light. Neck: Normal range of motion. Neck supple. No thyromegaly present. Cardiovascular: Normal rate, regular rhythm and normal heart sounds. Pulmonary/Chest: Effort normal and breath sounds normal. No respiratory distress. She has no wheezes. Abdominal: Soft. Bowel sounds are normal. She exhibits no distension. There is no tenderness. Musculoskeletal: General: No tenderness, deformity or edema. Neurological: She is alert and oriented to person, place, and time. Skin: Skin is warm and dry. No rash noted. She is not diaphoretic. No erythema. Psychiatric: Affect and judgment normal. Nursing note and vitals reviewed. ASSESSMENT AND PLAN ASSESSMENT/PLAN: 1. 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 Generalized abdominal pain - ICD9: 789.07, ICD10: R10.84 - this has completely resolved, she was seen in ED yesterday - there was some alcohol abuse as well alogn with intractable nausea/vomiting - reviewed recent CT of abd/pelvis - showed some bowel wall thickening, differential included ischemic colitis, inflammation or infection - reviewed recent labs - will check inflammatory markers - SED RATE WESTERGREN - C-REACTIVE PROTEIN (CRP) 3. Nausea - ICD9: 787.02, ICD10: R11.0 - likely secondary to alcohol intoxication - counseled on THC use 4. ASCUS with positive high risk HPV cervical - ICD9: 795.01, 795.05, ICD10: R87.610, R87.810 - noted in the past while following with OBGYN - will schedule for a well woman exam with breast exam, pap smear and HPV testing 5. Need for vaccination - ICD9: V05.9, ICD10: Z23 - ADMIN OF INFLUENZA VACCINE - INFLUENZA VACCINE QUADRIVALENT AGE 3 YRS PLUS + IM Plan: Return in about 6 weeks (around 06/25/2019) for Well woman exam. Discussed the above plan with the attending. Patient or patient's responsible parent/guardian was in agreement with the plan and verbalized understanding. Part of this note has been created using voice recognition software. It may concern errors which are inherent in voice-recognition technology. Maciel Souza MD Family Medicine Residency Program [facility] Referring Provider: FERCHO LANE [[id number]] Allergies As of Date: 05/14/2019 (No Known Allergies) Date Reviewed: 05/14/2019 Reviewed by: Otto Manning ([facility]) - Fully Assessed Reason for Visit: ER F/U [41] Cmt: vomiting, pt c/o incont of urine, after drinking, pt dx with colitis. Reason For Visit History Recorded Primary Visit Diagnosis:Florencia's thyroiditis [E06.3] Other Visit Diagnoses:Generalized abdominal pain [R10.84] Nausea [R11.0] ASCUS with positive high risk HPV cervical [R87.610, R87.810] Need for vaccination [Z23] Order(s):TSH, REFLEX [[id number]] Order #: [id number] FUTURE SED RATE WESTERGREN [SQWSR] Order #: [id number] FUTURE C-REACTIVE PROTEIN (CRP) [SQCRP] Order #: [id number] FUTURE levothyroxine (SYNTHROID) 50 mcg tabletTake 1 tablet by mouth once daily.Disp: 90 tabletRfl: 1 ADMIN OF INFLUENZA VACCINE [[id number]] Order #: [id number]: 1 INFLUENZA VACCINE QUADRIVALENT AGE 3 YRS PLUS + IM [[id number]] Order #: [id number] Prescriptions as of 05/14/2019 Sig: PROMETHAZINE 25 MG TABLET Take 1 tablet by mouth every * HYOSCYAMINE SULFATE 0.125 MG * Take 1 tablet by mouth every * LEVOTHYROXINE 50 MCG TABLET Take 1 tablet by mouth once d* Problem List As Of Date 05/14/2019 Noted Resolved Abnormal results of thyroid function studies [R*03/21/2017 Florencia's thyroiditis [E06.3] 03/28/2017 Heart burn [R12] 06/21/2017 Prescriptions ordered this encounter Disp Refills Start End LEVOTHYROXINE 50 MCG TABLET 90 t* 1 05/14/2019 Route: ORAL Sig: Take 1 tablet by mouth once daily. Medications Discontinued During This Encounter levothyroxine (SYNTHROID) 50 mcg tab* 04/28/2015 05/14/2019 Class: Historical Med Route: ORAL Sig: Take 50 mcg by mouth. Disc: Reason for discontinue is not on file. Disposition: Return in about 6 weeks (around 06/25/2019) for Well woman exam. Follow-up and Disposition History Recorded Encounter Status:Closed by MACIEL SOUZA MD on 05/14/19 Chart Close Cosign Required by: Catyh Martinez[] Normal [facility] CRPon 05-14-2019 CRP [Mass/Vol] mg/L Normal 0.00-0.30 [facility] Comment on above: Performed By: #### C RP3 #### [place] [address] Free Thyroxineon 05-14-2019 Free T4 [Mass/Vol] 0.83 ng/dL Normal 0.76-1.46 [facility] Comment on above: Performed By: #### F T4 #### [place] [address] PROGRESSon 05-14-2019 PROGRESS HNO ID: [id number] Author: Cathy Martinez Service: ? Author Type: Physician Type: Progress Notes Filed: 05/14/2019 11:46 AM Note Text: Attending Note I agree with the resident's findings and plan as documented and have discussed the case and management of the patient's case with the resident. I have reviewed the findings with the resident. I agree with the diagnosis of Florencia's thyroiditis (primary encounter diagnosis) Generalized abdominal pain Nausea Ascus with positive high risk hpv cervical Need for vaccination and agree with the resident's plan of care. See resident's note for further details. Cathy Martinez MD [facility] PROGRESS HNO ID: [id number] Author: Maciel Souza Service: ? Author Type: Resident Type: Progress Notes Filed: 05/14/2019 11:34 AM Note Text: [facility] NEW PATIENT HANDP Encounter date: 05/14/2019 SUBJECTIVE CC: Establish care HPI: Virginia Rodriguez is a 34 year old female presenting to the [facility] to establish care. Unless otherwise noted, history was obtained from the patient. I have updated patient's relevant past and current medical history, past surgical history, social history, family history, current medications and allergies into the medical record. 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 Component Latest Ref Rng AND Units 05/13/2019 WBC 3.70 - 11.00 k/uL 7.25 RBC 3.90 - 5.20 m/uL 4.18 Hemoglobin 11.5 - 15.5 g/dL 12.3 Hematocrit 36.0 - 46.0 % 37.5 MCV 80.0 - 100.0 fL 89.7 MCH 26.0 - 34.0 pG 29.4 MCHC 30.5 - 36.0 g/dL 32.8 RDW-CV 11.5 - 15.0 % 12.6 Platelet Count 150 - 400 k/uL 228 MPV 9.0 - 12.7 fL 9.6 Neut% % 75.1 Abs Neut (ANC) 1.45 - 7.50 k/uL 5.45 Lymph% % 18.5 Abs Lymph 1.00 - 4.00 k/uL 1.34 Roberts% % 5.1 Abs Roberts <0.87 k/uL 0.37 Eosin% % 0.7 Abs Eosin <0.46 k/uL 0.05 Baso% % 0.6 Abs Baso <0.11 k/uL 0.04 Nucleated Reds 0 /100 WBC 0.0 Absolute nRBC <0.01 k/uL <0.01 Diff Type Auto Diff Protein, Total 6.3 - 8.0 g/dL 7.0 Albumin 3.9 - 4.9 g/dL 4.5 Calcium 8.5 - 10.2 mg/dL 8.8 Bilirubin, Total 0.2 - 1.3 mg/dL 0.2 Alkaline Phosphatase 34 - 123 U/L 52 AST 13 - 35 U/L 17 Glucose 74 - 99 mg/dL 93 BUN 7 - 21 mg/dL 9 Creatinine 0.58 - 0.96 mg/dL 0.59 Sodium 136 - 144 mmol/L 137 Potassium 3.7 - 5.1 mmol/L 3.7 Chloride 97 - 105 mmol/L 102 CO2 22 - 30 mmol/L 24 Anion Gap 9 - 18 mmol/L 11 ALT 7 - 38 U/L 11 eGFR- >60 >60 eGFR-All Other Races >60 . >60 Color Yellow Yellow Clarity Clear Hazy (A) Glucose, Urine Negative mg/dL Negative Bilirubin, Urine Negative Negative Ketones, Urine Negative Negative Specific [place], Ur 1.005 - 1.030 1.015 Hemoglobin/Blood,Ur Negative Negative pH, Urine 4.5 - 8.0 8.5 (H) Protein, Urine Negative mg/dL Negative Urobilinogen 0.2 - 1.0 0.2 Nitrites Negative Negative Leukest Negative Negative WBC, Urine 0 - 5 /HPF 0-5 RBC, Urine 0 - 3 /HPF 0-3 Epithelial Cells /HPF SEE COMMENT Amorphous Crystals Many Cast 0 /LPF SEE COMMENT Phencyclidine Negative Negative Benzodiazepines Urine Negative Negative Cocaine Urine Negative Negative Amphetamines Negative Negative THC Negative Preliminary positive. (A) Opiates Negative Negative Barbiturates Urine Negative Negative Ethanol, Urine <11 mg/dL 162 (H) Oxycodone, Urine Negative Negative Magnesium 1.7 - 2.3 mg/dL 1.9 Lipase 16 - 61 U/L 24 HCG Qualitative, Urine Negative Negative Lactate 0.5 - 2.0 mmol/L 1.3 CT abd/pelvis IMPRESSION: 1. Bowel wall thickening of the right hemicolon to the level of the hepatic flexure with mild adjacent inflammation. No pneumatosis or free intraperitoneal air. Findings may could be suggestive of ischemic colitis given distribution. Alternatively, infectious/inflammato ry process is possible. ROS: Review of Systems Constitutional: Positive for malaise/fatigue. Negative for chills and fever. Respiratory: Negative for cough, shortness of breath and wheezing. Cardiovascular: Negative for chest pain and palpitations. Gastrointestinal: Positive for abdominal pain (cramping). Negative for blood in stool, constipation, diarrhea, heartburn, nausea and vomiting. Genitourinary: Negative for dysuria and urgency. Skin: Negative for itching and rash. Neurological: Negative for dizziness and headaches. Psychiatric/Behaviora l: Negative for depression, hallucinations, substance abuse and suicidal ideas. The patient is not nervous/anxious and does not have insomnia. PMH: PAST MEDICAL HISTORY Diagnosis Date - GERD (gastroesophageal reflux disease) - Hypothyroidism - NEGATIVE MEDICAL HISTORY FH: Family History Problem Relation Age of Onset - Thyroid Mother - Hyperlipidemia Mother - None Father - other (Substance Abuse) Father Alcohol - other (Diabetes Type 1) Brother type 1 - Depression Brother - None Sister - Hypertension Maternal Grandmother - Hyperlipidemia Maternal Grandmother - other (Oral Cancer) Maternal Grandmother - Hypertension Maternal Grandfather - Hyperlipidemia Maternal Grandfather - Heart disease Maternal Grandfather - Hyperlipidemia Paternal Grandmother - Hypertension Paternal Grandfather - Hyperlipidemia Paternal Grandfather - Diabetes Paternal Grandfather type 1 - Mental illness Other - Depression Other - other (Substance Abuse) Other SH: Social History Tobacco Use - Smoking status: Never Smoker - Smokeless tobacco: Never Used Substance Use Topics - Alcohol use: Yes Binge frequency: Monthly Comment: socially - Drug use: No CURRENT MEDICAL PROBLEMS: Problem List Noted Noted By Resolved Resolved By Heart burn 06/21/2017 Suyapa Patel No Florencia's thyroiditis 03/28/2017 Suyapa Patel No Abnormal results of thyroid function studies 03/21/2017 Suyapa Patel No ALLERGIES: ALLERGIES No Known Allergies MEDS: promethazine (PHENERGAN) 25 mg tablet, Take 1 tablet by mouth every 6 hours as needed for Nausea/Vomiting. hyoscyamine (LEVSIN) 0.125 mg tablet, Take 1 tablet by mouth every 8 hours as needed for up to 7 days. levothyroxine (SYNTHROID) 50 mcg tablet, Take 50 mcg by mouth. No current facility-administered medications on file prior to visit. OBJECTIVE Vital Signs: 05/14/19 1046 BP: 84/60 BP Site: Left Arm BP Position: Sitting BP Cuff Size: Regular Adult Pulse: 80 Temp: 36.6 ?C (97.8 ?F) TempSrc: Temporal Weight: 130 lb 9.6 oz (59.2 kg) Height: 5' 3 (1.6 m) Body mass index is 23.13 kg/m?. Physical Exam: Physical Exam Constitutional: She is oriented to person, place, and time and well-developed, well-nourished, and in no distress. No distress. HENT: Head: Normocephalic and atraumatic. Eyes: Pupils are equal, round, and reactive to light. Neck: Normal range of motion. Neck supple. No thyromegaly present. Cardiovascular: Normal rate, regular rhythm and normal heart sounds. Pulmonary/Chest: Effort normal and breath sounds normal. No respiratory distress. She has no wheezes. Abdominal: Soft. Bowel sounds are normal. She exhibits no distension. There is no tenderness. Musculoskeletal: General: No tenderness, deformity or edema. Neurological: She is alert and oriented to person, place, and time. Skin: Skin is warm and dry. No rash noted. She is not diaphoretic. No erythema. Psychiatric: Affect and judgment normal. Nursing note and vitals reviewed. ASSESSMENT AND PLAN ASSESSMENT/PLAN: 1. 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 Generalized abdominal pain - ICD9: 789.07, ICD10: R10.84 - this has completely resolved, she was seen in ED yesterday - there was some alcohol abuse as well alogn with intractable nausea/vomiting - reviewed recent CT of abd/pelvis - showed some bowel wall thickening, differential included ischemic colitis, inflammation or infection - reviewed recent labs - will check inflammatory markers - SED RATE WESTERGREN - C-REACTIVE PROTEIN (CRP) 3. Nausea - ICD9: 787.02, ICD10: R11.0 - likely secondary to alcohol intoxication - counseled on THC use 4. ASCUS with positive high risk HPV cervical - ICD9: 795.01, 795.05, ICD10: R87.610, R87.810 - noted in the past while following with OBGYN - will schedule for a well woman exam with breast exam, pap smear and HPV testing 5. Need for vaccination - ICD9: V05.9, ICD10: Z23 - ADMIN OF INFLUENZA VACCINE - INFLUENZA VACCINE QUADRIVALENT AGE 3 YRS PLUS + IM Plan: Return in about 6 weeks (around 06/25/2019) for Well woman exam. Discussed the above plan with the attending. Patient or patient's responsible parent/guardian was in agreement with the plan and verbalized understanding. Part of this note has been created using voice recognition software. It may concern errors which are inherent in voice-recognition technology. Maciel Souza MD Family Medicine Residency Program [facility] Normal [facility] Sed Rateon 05-14-2019 Sed Rate 14 mm/hr Normal 0-20 [facility] Comment on above: Performed By: #### E SR #### [place] [address] TSH Reflexon 05-14-2019 TSH Qn 5.260 uIU/mL High 0.358-3.740 [facility] Comment on above: Result Comment: Free T4 reflexed if TSH is less than or greater than the reference range. Performed By: #### T SHR #### [place] [address] ALLIED HEALTHon 05-13-2019 ALLIED HEALTH HNO ID: [id number] Author: Salomón Dunn (Ct) Service: Radiology Author Type: Health Care Facility Administrator Type: Allied Health Filed: 05/13/2019 2:55 PM Note Text: Radiology Service Progress Note PATIENT NAME: Virginia Rodriguez DATE OF SERVICE: May 13, 2019 TIME: 2:55 PM PATIENT IDENTITY VERIFICATION COMPLETED USING TWO (2) METHODS: Name and Date of confirmed by patient verbally. PATIENT GENDER DATA: Female. status: : No status: NO. PATIENT RELEVANT IMPLANT DATA REVIEWED: Not Applicable RADIOLOGY DEPARTMENT: CT; Exam(s) Completed: Abdomen/Pelvis PERIPHERAL IV DATA: Not applicable SIGNED BY: ISATU Dunn May 13, 2019 2:55 PM Normal [facility] CBC and Differentialon 05-13 Abs Baso 0.04 k/uL Normal <0.11 [facility] Comment on above: Performed By: #### C BCDIF, CMP, LIPA, MG1 #### [place] [address] Abs Roberts 0.37 k/uL Normal <0.87 [facility] Comment on above: Performed By: #### C BCDIF, CMP, LIPA, MG1 #### [place] [address] Abs Neut 5.45 k/uL Normal 1.45-7.50 [facility] Comment on above: Performed By: #### C BCDIF, CMP, LIPA, MG1 #### [place] [address] Absolute nRBC <0.01 Normal <0.01 [facility] Comment on above: Performed By: #### C BCDIF, CMP, LIPA, MG1 #### [place] [address] Basophils/100 WBC (Bld) 0.6 % Normal [facility] Comment on above: Performed By: #### C BCDIF, CMP, LIPA, MG1 #### [place] [address] DTYPE Auto Diff Normal [facility] Comment on above: Performed By: #### C BCDIF, CMP, LIPA, MG1 #### [place] [address] Eosinophils (Bld) [#/Vol] 0.05 10*3/uL Normal <0.46 [facility] Comment on above: Performed By: #### C BCDIF, CMP, LIPA, MG1 #### [place] [address] Eosinophils/100 WBC (Bld) 0.7 % Normal [facility] Comment on above: Performed By: #### C BCDIF, CMP, LIPA, MG1 #### [place] [address] Erythrocyte distribution width (RBC) [Ratio] 12.6 % Normal 11.5-15.0 [facility] Comment on above: Performed By: #### C BCDIF, CMP, LIPA, MG1 #### [place] [address] Hematocrit (Bld) [Volume fraction] 37.5 % Normal 36.0-46.0 [facility] Comment on above: Performed By: #### C BCDIF, CMP, LIPA, MG1 #### [place] [address] Hemoglobin (Bld) [Mass/Vol] 12.3 g/dL Normal 11.5-15.5 [facility] Comment on above: Performed By: #### C BCDIF, CMP, LIPA, MG1 #### [place] [address] Lymphocytes (Bld) [#/Vol] 1.34 10*3/uL Normal 1.00-4.00 [facility] Comment on above: Performed By: #### C BCDIF, CMP, LIPA, MG1 #### [place] [address] Lymphocytes/100 WBC (Bld) 18.5 % Normal [facility] Comment on above: Performed By: #### C BCDIF, CMP, LIPA, MG1 #### [place] [address] MCH (RBC) [Entitic mass] 29.4 pG Normal 26.0-34.0 [facility] Comment on above: Performed By: #### C BCDIF, CMP, LIPA, MG1 #### [place] [address] MCHC (RBC) [Mass/Vol] 32.8 g/dL Normal 30.5-36.0 [facility] Comment on above: Performed By: #### C BCDIF, CMP, LIPA, MG1 #### [place] [address] MCV (RBC) [Entitic vol] 89.7 fL Normal 80.0-100.0 [facility] Comment on above: Performed By: #### C BCDIF, CMP, LIPA, MG1 #### [place] [address] Monocytes/100 WBC (Bld) 5.1 % Normal [facility] Comment on above: Performed By: #### C BCDIF, CMP, LIPA, MG1 #### [place] [address] Neutrophils/100 WBC (Bld) 75.1 % Normal [facility] Comment on above: Performed By: #### C BCDIF, CMP, LIPA, MG1 #### [place] [address] NRBCs 0.0 /100 WBC Normal 0 [facility] Comment on above: Performed By: #### C BCDIF, CMP, LIPA, MG1 #### [place] [address] Platelet mean volume (Bld) [Entitic vol] 9.6 fL Normal 9.0-12.7 [facility] Comment on above: Performed By: #### C BCDIF, CMP, LIPA, MG1 #### [place] [address] Platelets (Bld) [#/Vol] 228 10*3/uL Normal 150-400 [facility] Comment on above: Performed By: #### C BCDIF, CMP, LIPA, MG1 #### [place] [id number] [place] [address] RBC (Bld) [#/Vol] 4.18 10*6/uL Normal 3.90-5.20 [facility] Comment on above: Performed By: #### C BCDIF, CMP, LIPA, MG1 #### [place] [address] WBC (Bld) [#/Vol] 7.25 10*3/uL Normal 3.70-11.00 [facility] Comment on above: Performed By: #### C BCDIF, CMP, LIPA, MG1 #### [place] [address] CT ABD/PEL W IVCONon 11-10-[address] ABD/PEL W IVCON * * *Final Report* * * DATE OF EXAM: May 13 2019 2:48PM BRENDAN 0530 - CT ABD/PEL W IVCON / PROCEDURE REASON: Nausea, vomiting * * * * Physician Interpretation * * * * EXAMINATION: CT ABDOMEN AND PELVIS WITH IV CONTRAST CLINICAL HISTORY: Nausea, vomiting Pt sts med to LT sided abd pain and nausea x1day. No prior imaging TECHNIQUE: CT of the abdomen and pelvis was performed using standard technique, scanning from just above the dome of the diaphragm to the symphysis pubis. MQ: CTAP_3 Contrast: IV: 120 ml of Omnipaque 300 No oral contrast was administered CT Radiation dose: Integrated Dose-length product (DLP) for this visit = 250 mGy*cm. CT Dose Reduction Employed: Automated exposure control(AEC) and iterative recon COMPARISON: None RESULT: Liver: No mass. Biliary: No bile duct dilation. Gallbladder is unremarkable. Spleen: No mass. No splenomegaly. Pancreas: No mass or duct dilation. Adrenals: No mass. Kidneys: No mass, calculus or hydronephrosis. GI tract: There is bowel wall thickening involving the right hemicolon to the level of the hepatic flexure with mild adjacent inflammation. No pneumatosis. No evidence for bowel obstruction. The appendix is unremarkable. Lymph nodes: No abdominal or pelvic lymphadenopathy. Mesentery/Peritoneum: No ascites or mass. Vasculature: The celiac axis and SMA are patent. The portal vein and branches, splenic vein, SMV, and hepatic veins are patent. Pelvis: There is trace free fluid within the pelvis likely physiologic. The uterus is present. There is a left corpus luteal cyst measuring up to 1.5 cm (series 2 image 83). Bones/Soft Tissues: No significant finding. Lower thorax: Unremarkable. IMPRESSION: 1. Bowel wall thickening of the right hemicolon to the level of the hepatic flexure with mild adjacent inflammation. No pneumatosis or free intraperitoneal air. Findings may could be suggestive of ischemic colitis given distribution. Alternatively, infectious/inflammato ry process is possible. Routine given indication of above results with provider Tamika Amezcua on 05/13/2019 at 3:14pm by Dr. Georgia Saavedra. Psychometric Examiner: MARCIAL Transcribe Date/Time: May 13 2019 3:00P Dictated by : GEORGIA SAAVEDRA MD This examination was interpreted and the report reviewed and electronically signed by: GEORGIA SAAVEDRA MD on May 13 2019 3:17PM EST [id number] Normal [facility] Comp Metabolic Panelon 05-13 Albumin [Mass/Vol] 4.5 g/dL Normal 3.9-4.9 [facility] Comment on above: Performed By: #### C BCDIF, CMP, LIPA, MG1 #### [place] [address] ALP [Catalytic activity/Vol] 52 U/L Normal 34-123 [facility] Comment on above: Performed By: #### C BCDIF, CMP, LIPA, MG1 #### [place] [id number] ALT [Catalytic activity/Vol] 11 U/L Normal 7-38 [facility] Comment on above: Performed By: #### C BCDIF, CMP, LIPA, MG1 #### [place] [address] Anion gap [Moles/Vol] 11 mmol/L Normal 9-18 [facility] Comment on above: Performed By: #### C BCDIF, CMP, LIPA, MG1 #### [place] [address] AST [Catalytic activity/Vol] 17 U/L Normal 13-35 [facility] Comment on above: Performed By: #### C BCDIF, CMP, LIPA, MG1 #### [place] [address] Bilirubin [Mass/Vol] 0.2 mg/dL Normal 0.2-1.3 [facility] Comment on above: Performed By: #### C BCDIF, CMP, LIPA, MG1 #### [place] [address] Calcium [Mass/Vol] 8.8 mg/dL Normal 8.5-10.2 [facility] Comment on above: Performed By: #### C BCDIF, CMP, LIPA, MG1 #### [place] [address] Chloride [Moles/Vol] 102 mmol/L Normal 97-105 [facility] Comment on above: Performed By: #### C BCDIF, CMP, LIPA, MG1 #### [place] [address] CO2 [Moles/Vol] 24 mmol/L Normal 22-30 [facility] Comment on above: Performed By: #### C BCDIF, CMP, LIPA, MG1 #### [place] [address] Creatinine [Mass/Vol] 0.59 mg/dL Normal 0.58-0.96 [facility] Comment on above: Performed By: #### C BCDIF, CMP, LIPA, MG1 #### [place] [address] eGFR- Amer. >60 Normal >60 [facility] Comment on above: Performed By: #### C BCDIF, CMP, LIPA, MG1 #### [place] [address] GFR/1.73 sq M predicted among non-blacks MDRD (S/P/Bld) [Vol rate/Area] mL/min/{1.73_m2} Normal >60 [facility] Comment on above: Result Comment: eGFR (Estimated GFR) Units of measure: mL/min/1.73 meters squared eGFR is derived from the reexpressed MDRD Study equation using the following parameters: serum creatinine, age, gender and race. The creatinine assay has been calibrated to be traceable to IDMS. An eGFR <60 mL/min/1.73m2 for >3 months is consistent with chronic kidney disease. Refer to KDOQI guidelines for clinical interpretation. In patients with unstable renal function, e.g. those with acute kidney injury, the eGFR may not accurately reflect actual GFR. Performed By: #### C BCDIF, CMP, LIPA, MG1 #### [place] [address] Glucose [Mass/Vol] 93 mg/dL Normal 74-99 [facility] Comment on above: Performed By: #### C BCDIF, CMP, LIPA, MG1 #### [place] [address] Potassium [Moles/Vol] 3.7 mmol/L Normal 3.7-5.1 [facility] Comment on above: Performed By: #### C BCDIF, CMP, LIPA, MG1 #### [place] [address] Protein [Mass/Vol] 7.0 g/dL Normal 6.3-8.0 [facility] Comment on above: Performed By: #### C BCDIF, CMP, LIPA, MG1 #### [place] [address] Sodium [Moles/Vol] 137 mmol/L Normal 136-144 [facility] Comment on above: Performed By: #### C BCDIF, CMP, LIPA, MG1 #### [place] [address] Urea nitrogen [Mass/Vol] 9 mg/dL Normal 7-21 [facility] Comment on above: Performed By: #### C BCDIF, CMP, LIPA, MG1 #### [facility] [address] [place] [id number] ED NOTEon 05-13-2019 ED NOTE HNO ID: [id number] Author: Sho Garg RN Service: Nursing Author Type: Registered Nurse Type: ED Notes Filed: 05/13/2019 4:11 PM Note Text: Pt received written and verbal discharge instructions. Pt verbalizes understanding. All questions answered. Pt educated on medications and dosages. Pt verbalized understanding. Instructed pt to follow up with PCP or follow-up DR. No acute distress noted. Instructed to come back to Emergency Room if symptoms worsen. Pt verbalized understanding. All belongings with patient. Pt departed ED. [facility] ED NOTE HNO ID: [id number] Author: Sho Parikh) JUANY Garg Service: Nursing Author Type: Registered Nurse Type: ED Notes Filed: 05/13/2019 4:10 PM Note Text: Pt resting comfortably in bed. Equal chest rise and fall noted with regular respirations. No acute distress noted. Safety maintained and bed is in lowest position. Will continue to monitor pt. [facility] ED NOTE HNO ID: [id number] Author: Sho Garg RN Service: Nursing Author Type: Registered Nurse Type: ED Notes Filed: 05/13/2019 3:23 PM Note Text: Physician at bedside [facility] ED NOTE HNO ID: [id number] Author: Sho Garg RN Service: Nursing Author Type: Registered Nurse Type: ED Notes Filed: 05/13/2019 3:23 PM Note Text: Pt resting comfortably in bed. Equal chest rise and fall noted with regular respirations. No acute distress noted. Safety maintained and bed is in lowest position. Will continue to monitor pt. [facility] ED NOTE HNO ID: [id number] Author: Fredy ParisRn) JUANY Robins Service: ? Author Type: Registered Nurse Type: ED Notes Filed: 05/13/2019 2:20 PM Note Text: Patient requesting not to be given morphine at this time. Morphine held [facility] ED NOTE HNO ID: [id number] Author: Pato (Rao Valdez Service: ? Author Type: Medicare Coordinator and Health Care Facility Administrator Type: ED Notes Filed: 05/13/2019 1:53 PM Note Text: Pt states she was tailgating this morning, had about five drinks and suddenly became sick. She vomited at least ten times and lost control of her bladder while she was vomiting. She states she was feeling fine prior to this event. She states there is a possibility she may be . [facility] ED PROV NOTEon 05-13-2019 ED PROV NOTE HNO ID: [id number] Author: Tamika Millan Service: Emergency Medicine Author Type: Physician Phonograph Mechanic Type: ED Provider Notes Filed: 05/13/2019 4:51 PM Note Text: Attestation signed by Jared Albrecht MD at 05/15/2019 12:09 AM Attending Note I have personally performed a face to face assessment of the patient. I have reviewed the PA/ADINA note and discussed the patient's care with them. I agree with the above findings and plan of care except as noted. My sanders findings include: History: Patient is a 34 year old female who presents complaining of abdominal pain, nausea, vomiting. Patient was attending a [employer] game today and consumed several alcoholic beverages. She developed sudden onset diffuse, sharp, stabbing abdominal pain accompanied by many episodes of nonbloody, nonbilious emesis. Abdominal pain is present when vomiting only. She is not currently experiencing any pain. She denies any recent illnesses or sick contacts. She denies any diarrhea. She has never extrinsic symptoms like these before. She has no history of vascular disease, coagulopathy, or DVT/PE. Exam: General: Well appearing 34 year old female in no apparent distress HEENT: Normocephalic, atraumatic. PERRL, EOM grossly intact. Sclera anicteric. NECK: Normal ROM CARDIAC: Regular rate, regular rhythm without murmurs, rubs, or gallops. 2+ pulses in all 4 extremities PULMONARY: Lungs clear to auscultation without wheezes or rales ABDOMEN: Soft, non-tender, non-distended without guarding or rebound tenderness. No pulsatile abdominal masses EXTREMITIES: No appreciable lower extremity edema SKIN: Warm, dry. No rashes or wounds NEURO: A/O x 3. PSYCH: Normal mood and affect Assessment/Plan: On my examination the patient has no abdominal tenderness, guarding, or rebound. I am not concerned for acute abdomen at this time. She declined any analgesia while in the ED. CT scan of the abdomen and pelvis is concerning for infectious versus ischemic colitis. Patient has no diarrhea and given her nontender abdominal exam and normal active lactic acid level, I am not suspicious for ischemic colitis at this time. Patient's laboratory studies remarkable only for an elevated ethanol level. Nausea and vomiting resolved with Zofran and patient was able to tolerate PO without difficulty. I discussed with the patient that the workup for abdominal pain did not reveal any acute surgical issue or reason for admission. At this point I feel she is safe to discharge home. However I emphasized that they may be early in the course of a disease process and it might be too early to find a infection or surgical process even if it is present. For this reason I arranged for urgent outpatient reevaluation tomorrow morning with a physician near her home and [facility]. I also stressed that she is to return immediately if her symptoms worsen or if she develops new problems. Patient expressed that they understood and will follow these recommendations. Signature: Jared Albrecht MD Date: 05/15/2019 Time: 12:00 AM ED Provider Note Patient Name: Virginia Rodriguez SERVICE DATE: 05/13/19 History Patient presents with: Nausea AND Vomiting Abdominal Pain 34-year-old white female that presents to the emergency room with her significant other with complaints of sudden onset of abdominal pain with nausea and vomiting. The patient states that she was tailgating at [employer] when she had a sudden onset of vomiting. She states that she vomited 10 times and during was time she actually lost control of her bladder. There was no seizure-like activity. The patient states that she does get abdominal pain when she vomits. The patient's states that this is never happened before. She does admit to drinking 5 white cause this morning but states that this is not abnormal for her. The patient states that 10 days ago she was seen for a tick bite to her back and was placed on doxycycline. The patient states that she did not finish it because it was making her very nauseous. The patient denies any rash or body aches. She also states that she could possibly be her last menstrual period was a month and a half ago. She states that this is not atypical for her when she is completely stressed. Pain scale 5/10. Review of systems were reviewed and patient denies fever, chills, headache, visual changes, sore throat or dental complaints, neck pain or stiffness, chest pain, shortness of breath, cough or diarrhea. Patient denies genitourinary symptoms, skin rash, musculoskeletal issues or neuro deficits. Symptoms not improved with home or OTC medications. No other medical complaints or injuries. No other aggravating or alleviating symptoms other than described as above. History provided by: Patient and significant other full time staff interpreter used: No PAST MEDICAL HISTORY Diagnosis Date - Hypothyroidism - NEGATIVE MEDICAL HISTORY PAST SURGICAL HISTORY Procedure Laterality Date - NONE FAMILY HISTORY Problem Relation Age of Onset - Thyroid Mother - None Father - other (Substance Abuse) Father - Diabetes Brother type 1 - None Sister - None Brother - Diabetes Brother - Hypertension Maternal Grandmother - Hyperlipidemia Maternal Grandmother - other (Oral Cancer) Maternal Grandmother - Hypertension Maternal Grandfather - Hyperlipidemia Maternal Grandfather - Heart disease Maternal Grandfather - Hyperlipidemia Paternal Grandmother - Hypertension Paternal Grandfather - Hyperlipidemia Paternal Grandfather - Diabetes Paternal Grandfather type 1 - Mental illness Other - Depression Other - other (Substance Abuse) Other Social History Tobacco Use - Smoking status: Never Smoker - Smokeless tobacco: Never Used Substance and Sexual Activity - Alcohol use: Yes Comment: socially - Drug use: No - Sexual activity: Yes Partners: Male ALLERGIES No Known Allergies Review of Systems Constitutional: Negative. HENT: Negative. Eyes: Negative. Respiratory: Negative. Cardiovascular: Negative. Gastrointestinal: Positive for abdominal pain, nausea and vomiting. Genitourinary: Negative. Musculoskeletal: Negative. Skin: Negative. Neurological: Negative. Physical Exam Ht 5' 3 (1.60m) Wt 130 lb (59.0kg) LMP 03/23/2019 BMI 23.03 kg/(m2). Physical Exam Vitals signs and nursing note reviewed. Constitutional: General: She is not in acute distress. Appearance: Normal appearance. She is well-developed and normal weight. She is not ill-appearing or toxic-appearing. HENT: Head: Normocephalic and atraumatic. Nose: Nose normal. Mouth/Throat: Mouth: Mucous membranes are moist. Eyes: General: Lids are normal. Extraocular Movements: Extraocular movements intact. Conjunctiva/sclera: Conjunctivae normal. Pupils: Pupils are equal, round, and reactive to light. Neck: Musculoskeletal: Full passive range of motion without pain, normal range of motion and neck supple. Trachea: Trachea and phonation normal. Cardiovascular: Rate and Rhythm: Normal rate and regular rhythm. Heart sounds: Normal heart sounds. Pulmonary: Effort: Pulmonary effort is normal. Breath sounds: Normal breath sounds. Abdominal: General: Bowel sounds are normal. Palpations: Abdomen is soft. Tenderness: There is generalized tenderness. There is no right CVA tenderness, left CVA tenderness, guarding or rebound. Negative signs include Pena's sign, Rovsing's sign, McBurney's sign, psoas sign and obturator sign. Hernia: No hernia is present. Musculoskeletal: Normal range of motion. Skin: General: Skin is warm and dry. Neurological: Mental Status: She is alert and oriented to person, place, and time. GCS: GCS eye subscore is 4. GCS verbal subscore is 5. GCS motor subscore is 6. Cranial Nerves: No cranial nerve deficit. Psychiatric: Speech: Speech normal. Behavior: Behavior normal. Behavior is cooperative. Diagnostic Testing ED Labs Ordered and Reviewed URINALYSIS WITH MICROSCOPIC (AK,AV,EU,FV,HL,MACIE,MM ,SP) - Abnormal; Notable for the following components: Result Value Ref Range Clarity Hazy (*) Clear pH, Urine 8.5 (*) 4.5 - 8.0 All other components within normal limits URINE DRUG SCREEN (AK,AV,EU,FV,HL,MACIE,MM ,SP) - Abnormal; Notable for the following components: THC Preliminary positive. (*) Negative Ethanol, Urine 162 (*) <11 mg/dL All other components within normal limits COMPREHENSIVE METABOLIC PANEL (AK,AV,EU,FV,HL,MACIE,MM ,SP) MAGNESIUM BLOOD (AK,AV,EU,FV,HL,MACIE,MM ,SP) LIPASE BLOOD (AK,AV,EU,FV,HL,MACIE,MM ,SP) CBC + AUTO DIFF (AK,AV,EU,FV,HL,MACIE,MM ,SP) HCG QUALITATIVE URINE (AK,AV,EU,FV,HL,MACIE,MM ,SP) SEPSIS LACTATE (AV,EU,FV,HL,MACIE,MM,SP ) CT ABD/PEL W IVCON Final Result IMPRESSION: 1. Bowel wall thickening of the right hemicolon to the level of the hepatic flexure with mild adjacent inflammation. No pneumatosis or free intraperitoneal air. Findings may could be suggestive of ischemic colitis given distribution. Alternatively, infectious/inflammato ry process is possible. Routine given indication of above results with provider Tamika Ameczua on 05/13/2019 at 3:14pm by Dr. Georgia Saavedra. Psychometric Examiner: MARCIAL Transcribe Date/Time: May 13 2019 3:00P Dictated by : GEORGIA SAAVEDRA MD This examination was interpreted and the report reviewed and electronically signed by: GEORGIA SAAVEDRA MD on May 13 2019 3:17PM EST Procedures ED Course / Clinical Impression Medications morphine 4 mg injection (4 mg INTRAVENOUS Not Given 05/13/19 1500) iv contrast (radiology procedure) (has no administration in time range) NaCl 0.9% 1,000 mL iv bolus (0 mL INTRAVENOUS Infusion Complete 05/13/19 1555) ondansetron (PF) 4 mg injection (ZOFRAN) (4 mg INTRAVENOUS Given 05/13/19 1417) famotidine 20 mg injection (PEPCID) (20 mg INTRAVENOUS Given 05/13/19 1416) Sxs improved with the above meds. Pt tolerated PO Fluids and prashanth crackers. Pt feels well enough to be discharged. Follow up with PCP at [facility] 05/14/2019 Discharge Medication List as of 05/13/2019 3:57 PM START taking these medications promethazine (PHENERGAN) 25 mg tablet Take 1 tablet by mouth every 6 hours as needed for Nausea/Vomiting. Print RX, Disp-12 tablet, R-0 hyoscyamine (LEVSIN) 0.125 mg tablet Take 1 tablet by mouth every 8 hours as needed for up to 7 days. Print RX, Disp-15 tablet, R-0, Long-term Clinical Impressions as of May 13 1645 Non-intractable vomiting with nausea, unspecified vomiting type Indeterminate colitis The patient and/or family as well as anybody present: -if seated in an open space, such as Results Waiting, were asked permission and permission granted if we could proceed with medical questioning and discussion of medical test results -had the results of all tests and the diagnosis reviewed and explained to them and there were no further questions -were given both verbal and written discharge instructions -were instructed of the importance of close follow-up -were told that close follow-up is essential for good health and good outcomes -were given a work/school excuse, if needed -were told that we would call them with final positive culture/lab results -local clinic numbers as well as [facility] follow up numbers were given -if a smoker, were given smoking cessation discharge papers MDM / Disposition / Plan Case was discussed with Dr Jared Albrecht in theED. Gallstones, Gastro, Colitis-Ischemic vs Infectious, SBO, Appendicitis, SETH, , Ovarian Torsion, Ruptured Ovarian Cyst, UTI, Kidney Stone, Metabolic Abnl considered as differential diagnoses. Management decisions include D/C home. Additional Tests or Interventions: IV Fluids IV fluids were given for the following reasons replacement. Disposition The patient was discharged. Counseled patient and significant other regarding lab results, suspected diagnosis and radiology results. As well as the need for follow-up. Discharged home with verbal and written instructions. They were instructed to return as needed for persistent or worsening symptoms or any new concerns. Condition at disposition is improved and stable. SIGNATURE: ZENA Medel Pa-C 05/13/19 1656 Jared Albrecht MD 05/15/19 0009 Normal [facility] HCG Qual, Urineon 05-13-2019 Beta HCG ( test) Ql (U) Negative Normal Negative [facility] Comment on above: Performed By: #### U HCG, UAWMIC, UTOX2 #### [facility] [address] [place] [address] Lipaseon 05-13-2019 Lipase [Catalytic activity/Vol] 24 U/L Normal 16-61 [facility] Comment on above: Performed By: #### C BCDIF, CMP, LIPA, MG1 #### [place] [address] Magnesiumon 05-13-2019 Magnesium [Mass/Vol] 1.9 mg/dL Normal 1.7-2.3 [facility] Comment on above: Performed By: #### C BCDIF, CMP, LIPA, MG1 #### [place] [address] Sepsis Lactateon 05-13-2019 Sepsis Lactate 1.3 mmol/L Normal 0.5-2.0 [facility] Comment on above: Performed By: #### S LACT ####[place] [id number] Toxicology Screen,Uron 05-13 Amphetamines, Urine Negative Normal Negative [facility] Comment on above: Result Comment: Cuto ff threshold at 1000 ng/mL. Performed By: #### U HCG, UAWMIC, UTOX2 #### [place] [address] Barbiturates, Urine Negative Normal Negative [facility] Comment on above: Result Comment: Cuto ff threshold at 200 ng/mL. Performed By: #### U HCG, UAWMIC, UTOX2 #### [place] [address] Benzodiazepines, Ur Negative Normal Negative [facility] Comment on above: Result Comment: Cuto ff threshold at 200 ng/mL. Performed By: #### U HCG, UAWMIC, UTOX2 #### [place] [address] Cannabinoids, Urine Positive Critically abnormal Negative [facility] Comment on above: Result Comment: Cuto ff threshold at 50 ng/mL. Performed By: #### U HCG, UAWMIC, UTOX2 #### [place] [address] Cocaine, Urine Negative Normal Negative [facility] Comment on above: Result Comment: Cuto ff threshold at 300 ng/mL. Performed By: #### U HCG, UAWMIC, UTOX2 #### [place] [address] Ethanol, Urine 162 mg/dL High <11 [facility] Comment on above: Performed By: #### U HCG, UAWMIC, UTOX2 #### [place] [address] Opiates, Urine Negative Normal Negative [facility] Comment on above: Result Comment: Cuto ff threshold at 300 ng/mL. Performed By: #### U HCG, UAWMIC, UTOX2 #### [place] [address] Oxycodone, Urine Negative Normal Negative [facility] Comment on above: Result Comment: Cuto ff threshold at 100 ng/mL. Comment: Immunoassay screen only. Cross reactivity with other substances can occur with immunoassay screening. Detection of any drug(s) in this urine toxicology panel is presumptive only. These tests are for medical purposes only and should not be used for compliance monitoring, legal, or forensic use. Samples should be within normal physiological conditions (e.g. pH). This assay does not include adulteration/specimen validity testing. In clinical settings, confirmatory testing is at the practitioner's discretion [1]. If clinically indicated, confirmation by high specificity, quantitative methodology, which includes adulteration/specimen validity testing, may be requested on the same specimen through Client Services ([phone]) if contacted within 48 hours of initial testing. [1]Substance Abuse and Mental Health Services Administration (2012). Clinical Drug Testing in Primary Care Technical Assistance Publication Series 32. Department of Health and Human Services, [place], p.10. Performed By: #### U HCG, UAWMIC, UTOX2 #### [place] [address] Phencyclidine, Urine Negative Normal Negative [facility] Comment on above: Result Comment: Cuto ff threshold at 25 ng/mL. Performed By: #### U HCG, UAWMIC, UTOX2 #### [place] [address] Urinalysis with Microscopico n 05-13-2019 Amorphous Crystal Many Normal [facility] Comment on above: Performed By: #### U HCG, UAWMIC, UTOX2 #### [place] [address] Bilirubin, Urine Negative Normal Negative [facility] Comment on above: Performed By: #### U HCG, UAWMIC, UTOX2 #### [place] [address] Cast SEE COMMENT Normal 0 [facility] Comment on above: Result Comment: 0 Performed By: #### U HCG, UAWMIC, UTOX2 #### [place] [address] Clarity (U) Hazy Critically abnormal Clear [facility] Comment on above: Performed By: #### U HCG, UAWMIC, UTOX2 #### [place] [address] Color (U) Yellow Normal Yellow [facility] Comment on above: Performed By: #### U HCG, UAWMIC, UTOX2 #### [place] [address] Epithelial cells LM.HPF (Urine sed) [#/Area] SEE COMMENT Normal [facility] Comment on above: Result Comment: -10 Squamous Performed By: #### U HCG, UAWMIC, UTOX2 #### [place] [address] Glucose Ql (U) Negative Normal Negative [facility] Comment on above: Performed By: #### U HCG, UAWMIC, UTOX2 #### [place] [address] Hemoglobin/Blood,Ur Negative Normal Negative [facility] Comment on above: Performed By: #### U HCG, UAWMIC, UTOX2 #### [place] [address] Ketones Ql (U) Negative Normal Negative [facility] Comment on above: Performed By: #### U HCG, UAWMIC, UTOX2 #### [place] [address] Leukest Negative Normal Negative [facility] Comment on above: Performed By: #### U HCG, UAWMIC, UTOX2 #### [place] [address] Nitrite Ql (U) Negative Normal Negative [facility] Comment on above: Performed By: #### U HCG, UAWMIC, UTOX2 #### [place] [address] pH (Bld) 8.5 High 4.5-8.0 [facility] Comment on above: Performed By: #### U HCG, UAWMIC, UTOX2 #### [place] [address] Protein (U) [Mass/Vol] Negative Normal Negative [facility] Comment on above: Performed By: #### U HCG, UAWMIC, UTOX2 #### [place] [address] RBC (U) [#/Vol] 0-3 Normal 0-3 [facility] Comment on above: Performed By: #### U HCG, UAWMIC, UTOX2 #### [place] [address] Specific [place], Ur 1.015 Normal 1.005-1.030 [facility] Comment on above: Performed By: #### U HCG, UAWMIC, UTOX2 #### [place] [address] Urobilinogen Qn (U) 0.2 Normal 0.2-1.0 [facility] Comment on above: Performed By: #### U HCG, UAWMIC, UTOX2 #### [place] [address] WBC (Bld) [#/Vol] 0-5 Normal 0-5 [facility] Comment on above: Performed By: #### U HCG, UAWMIC, UTOX2 #### [facility] [address] [address] ED NOTEon 05-01-2019 ED NOTE HNO ID: [id number] Author: Cally ParisRn) JUANY Cristina Service: Emergency Medicine Author Type: Registered Nurse Type: ED Notes Filed: 05/01/2019 9:33 AM Note Text: Pt states tick had a black head with a white body; body wasn't huge. [facility] ED NOTE HNO ID: [id number] Author: Cally ParisRn) JUANY Cristina Service: Emergency Medicine Author Type: Registered Nurse Type: ED Notes Filed: 05/01/2019 9:31 AM Note Text: Pt got bit by a tick last week and boyfriend removed; per her doctor pt states head and all was removed. Pt states she is exhibiting some flu like symptoms and her PCP told her to watch for them. Normal [facility] ED PROV NOTEon 05-01-2019 ED PROV NOTE HNO ID: [id number] Author: Carmen Tovar) KARTHIKEYAN Bynum Service: Emergency Medicine Author Type: Physician Phonograph Mechanic Type: ED Provider Notes Filed: 05/03/2019 2:00 AM Note Text: ED Provider Note Patient Name: Virginia Rodriguez SERVICE DATE: 05/01/19 History Patient presents with: Insect Bite: states pulled a tick out of back last weekANDhas felt sick every since +n-v -fever c/o body aches HPI 34y F with Hx of hypothyroidism c/o generalized fatigue x 5d after pulling a tick off her back. Also endorses ST. Denies cough. Denies fever, vomiting except she threw up the 200mg one time dose of doxycycline given by PCP 1d after she pulled off the tick. Denies rash. States she thinks she is just getting a cold, but given the recent tick bite wanted to be reevaluated. Per pt, when shown a picture, identifies tick as a dog tick. LMP approx 38d ago. Normally irregular. PAST MEDICAL HISTORY Diagnosis Date - Hypothyroidism - NEGATIVE MEDICAL HISTORY PAST SURGICAL HISTORY Procedure Laterality Date - NONE FAMILY HISTORY Problem Relation Age of Onset - Thyroid Mother - None Father - other (Substance Abuse) Father - Diabetes Brother type 1 - None Sister - None Brother - Diabetes Brother - Hypertension Maternal Grandmother - Hyperlipidemia Maternal Grandmother - other (Oral Cancer) Maternal Grandmother - Hypertension Maternal Grandfather - Hyperlipidemia Maternal Grandfather - Heart disease Maternal Grandfather - Hyperlipidemia Paternal Grandmother - Hypertension Paternal Grandfather - Hyperlipidemia Paternal Grandfather - Diabetes Paternal Grandfather type 1 - Mental illness Other - Depression Other - other (Substance Abuse) Other Social History Tobacco Use - Smoking status: Never Smoker - Smokeless tobacco: Never Used Substance and Sexual Activity - Alcohol use: Yes Comment: socially - Drug use: No - Sexual activity: Yes Partners: Male ALLERGIES No Known Allergies Review of Systems Constitutional: Negative. HENT: Negative. Eyes: Negative. Respiratory: Negative. Cardiovascular: Negative. Gastrointestinal: Negative. Endocrine: Negative. Genitourinary: Negative. Musculoskeletal: Negative. Skin: See hpi Neurological: Negative. Hematological: Negative. Physical Exam BP 110/58 Pulse 85 Temp (Src) 98.4 (Oral) Resp 18 Ht 5' 3 (1.60m) Wt 130 lb (59.0kg) SpO2 100% LMP 03/23/2019 BMI 23.03 kg/(m2). Physical Exam Constitutional: She is oriented to person, place, and time. She appears well-developed and well-nourished. She is active. Non-toxic appearance. She does not have a sickly appearance. She does not appear ill. No distress. HENT: Head: Normocephalic and atraumatic. Right Ear: External ear normal. Left Ear: External ear normal. Mouth/Throat: Uvula is midline, oropharynx is clear and moist and mucous membranes are normal. No trismus in the jaw. No uvula swelling. No oropharyngeal exudate, posterior oropharyngeal edema, posterior oropharyngeal erythema or tonsillar abscesses. No tonsillar exudate. Eyes: Conjunctivae and lids are normal. Right eye exhibits no discharge. Left eye exhibits no discharge. Right conjunctiva is not injected. Left conjunctiva is not injected. No scleral icterus. Cardiovascular: Normal rate, regular rhythm and normal heart sounds. Exam reveals no gallop and no friction rub. No murmur heard. Pulmonary/Chest: Effort normal and breath sounds normal. No accessory muscle usage. No respiratory distress. She has no wheezes. She has no rhonchi. She has no rales. Abdominal: Normal appearance. Neurological: She is alert and oriented to person, place, and time. GCS eye subscore is 4. GCS verbal subscore is 5. GCS motor subscore is 6. Skin: Skin is warm, dry and intact. Capillary refill takes less than 2 seconds. No abrasion, no burn, no ecchymosis, no laceration, no lesion and no rash noted. No cyanosis or erythema. Nails show no clubbing. Very small, well-healing punctate lesion to the back. There is no rash of any kind including erythema migrans. No lacerations, abrasions, excoriations, erythema, edema, ecchymosis. There is no streaking. Psychiatric: She has a normal mood and affect. Her speech is normal and behavior is normal. Nursing note and vitals reviewed. Diagnostic Testing ED Labs Ordered and Reviewed HCG QUALITATIVE URINE (AK,AV,EU,FV,HL,MACIE,MM ,SP) Procedures ED Course / Clinical Impression ED Course as of May 03 200 Carmen Tovar) Fletcher's Documentation Tue May 01, 2019 1042 HCG Qualitative, Urine: Negative Clinical Impressions as of May 03 200 Tick bite, initial encounter Malaise and fatigue MDM / Disposition / Plan MDM 34y F with Hx of hypothyroidism c/o generalized fatigue x 5d after pulling a tick off her back. Also endorses ST. Denies cough. Denies fever, vomiting except she threw up the 200mg one time dose of doxycycline given by PCP 1d after she pulled off the tick. Denies rash. States she thinks she is just getting a cold, but given the recent tick bite wanted to be reevaluated. Per pt, when shown a picture, identifies tick as a dog tick. LMP approx 38d ago. Normally irregular. Physical exam is remarkable for a very small, well-healing punctate lesion to the back. There is no rash of any kind including erythema migrans. Given that there is no rash surrounding the bite and the tick was likely a deer tick, I think the risks of Lyme disease and Delton spotted fever are low, however given that the patient threw up her original dose of doxycycline, I think it is reasonable to repeat the antibiotic treatment. Again, given that she threw up 200 mg and 1 dose, I will cover with 100 mg of doxycycline daily x 10d. Patient also given a prescription for ODT Zofran should she develop nausea. PCP follow-up. Pt discharged home in good condition, given ED return precautions. Pt expresses understanding and is amenable to plan. The patient was DISCHARGED: Counseled patient and family regarding lab results AND suspected diagnosis AND need for follow-up. Discharged home with verbal and written instructions. They were instructed to return as needed for persistent or worsening symptoms or any new concerns. Condition at time of disposition: stable and well SIGNATURE: ZENA Delgadillo (Karthikeyan) KARTHIKEYAN Bynum 05/03/19 0200 Normal [facility] Urine HCG, Qual.on 9 Beta HCG ( test) Ql (U) Negative Normal Negative [facility] Comment on above: Performed By: #### H CGUR #### [facility] [address] [place], [place] [address] Specific [place], Ur 1.012 Normal 1.005-1.030 [facility] Comment on above: Performed By: #### H CGUR #### [facility] [address] [place], [place] [address] Vital Signs Date Time Vital Sign Value Performing Clinician Facility 12-27-2024 13:15-0400 Body temperature 75 [degF] Dr. Fercho Laen MD Work Phone: [facility] 12-27-2024 13:15-0400 Diastolic blood pressure 70 mm[Hg] Dr. Fercho Lane MD Work Phone: [facility] 12-27-2024 13:15-0400 Heart rate 75 /min Dr. Fercho Lane MD Work Phone: [facility] 12-27-2024 13:15-0400 Respiratory rate 16 /min Dr. Fercho Lane MD Work Phone: [facility] 12-27-2024 13:15-0400 SaO2% (BldA) [Mass fraction] 99 % Dr. Fercho Lane MD Work Phone: 5(485)118-193418 [place] [address] 12-27-2024 13:15-0400 Systolic blood pressure 104 mm[Hg] Dr. Fercho Lane MD Work Phone: 9(297)511-520855 [place] [address] 12-27-2024 11:27-0400 Body height 160.[address] Fer[address] MD Work Phone: 8(073)821-458055 [place] [address] 12-27-2024 11:27-0400 Body mass index (BMI) [Ratio] 24.5 kg/m2 Dr. Fercho Lane MD Work Phone: 6(828)995-633655 [place] [address] 12-27-2024 11:27040 Body weight [address] Fercho [address] MD Work Phone: 9(341)[phone] [place] [address] 10-25-2022 10:10-0400 Body height [address] MD Work Phone: 0(319)209-722017 [place] [address] 10-25-2022 10:10-0400 Body mass index (BMI) [Ratio] 24.62 kg/m2 Fercho Lane MD Work Phone: 9(568)797-337517 [place] [address] 10-25-2022 10:10-0400 Body temperature 97.5 [degF] Fercho Lane MD Work Phone: 2(800)582-676117 [place] [address] 10-25-2022 10:10-0400 Body weight 63.[address] MD Work Phone: 1(870)062-710117 [place] [address] 10-25-2022 10:10-0400 Diastolic blood pressure 74 mm[Hg] Fercho Lane MD Work Phone: 8(329)738-241917 [place] [address] 10-25-2022 10:10-0400 Heart rate 86 /min Fercho Lane MD Work Phone: 0(505)734-182817 [place] [address] 10-25-2022 10:10-0400 SaO2% (BldA) [Mass fraction] 97 % Fercho Lane MD Work Phone: [facility] 10-25-2022 10:10-0400 Systolic blood pressure 110 mm[Hg] Fercho Lane MD Work Phone: [facility] 08-10-2022 14:24-0500 Body height 163.8 cm Rhiannon Winfield SHIRT FINISHER.JEWELRY SETTER Work Phone: [facility] 08-10-2022 14:24-0500 Body weight 63.05 kg Rhiannon Param SHIRT FINISHER.JEWELRY SETTER Work Phone: [facility] 08-10-2022 14:24-0500 Diastolic blood pressure 58 mm[Hg] Rhiannon Winfield SHIRT FINISHER.JEWELRY SETTER Work Phone: [facility] 08-10-2022 14:24-0500 Systolic blood pressure 90 mm[Hg] Rhiannon Param SHIRT FINISHER.JEWELRY SETTER Work Phone: [facility] 05-31-2022 16:25-0500 Body height 160.02 cm Fercho Guoa Work Phone: [facility] Work Phone: 05-31-2022 16:25-0500 Body mass index (BMI) [Ratio] 24.09 kg/m2 Fercho Guoa Work Phone: [facility] Work Phone: 05-31-2022 16:25-0500 Body surface area Derived from formula 1.[address] Work Phone: [facility] Work Phone: 05-31-2022 16:25-0500 Body temperature 101.6 [degF] Fercho Guoa Work Phone: [facility] Work Phone: 05-31-2022 16:25-0500 Body weight 61.[address] Work Phone: [facility] Work Phone: 12-08-2021 13:50-0400 Body height 160.02 cm Fercho D Madiepara Work Phone: [facility] Work Phone: 12-08-2021 13:50-0400 Body mass index (BMI) [Ratio] 24.13 kg/m2 Fercho D Alexjapara Work Phone: [facility] Work Phone: 12-08-2021 13:50-0400 Body surface area Derived from formula 1.64 m2 Fercho D Alexjapara Work Phone: [facility] Work Phone: 12-08-2021 13:50-0400 Body temperature 97.3 [degF] Fercho D Alexjapara Work Phone: [facility] Work Phone: 12-08-2021 13:50-0400 Body weight 61.78 kg Valjohnie D Alexjapara Work Phone: [facility] Work Phone: 12-08-2021 13:50-0400 Diastolic blood pressure 65 mm[Hg] Fercho D Munjapara Work Phone: [facility] Work Phone: 12-08-2021 13:50-0400 Heart rate 88 /min Valjohnie D Munjapara Work Phone: [facility] Work Phone: 12-08-2021 13:50-0400 SaO2% (BldA) [Mass fraction] 98 % Valji D Munjapara Work Phone: [facility] Work Phone: 12-08-2021 13:50-0400 Systolic blood pressure 108 mm[Hg] Valji D Munjapara Work Phone: [facility] Work Phone: 04-21-2021 15:57-0400 Body height 160.02 cm Fercho D Madiepara Work Phone: [facility] Work Phone: 04-21-2021 15:57-0400 Body mass index (BMI) [Ratio] 24.09 kg/m2 Fercho Ramachandranpara Work Phone: [facility] Work Phone: 04-21-2021 15:57-0400 Body surface area Derived from formula 1.64 m2 Fercho Ramachandranpara Work Phone: [facility] Work Phone: 04-21-2021 15:57-0400 Body temperature 97.2 [degF] Fercho Ramachandranpara Work Phone: [facility] Work Phone: 04-21-2021 15:57-0400 Body weight 61.69 kg Fercho Ramachandranpara Work Phone: [facility] Work Phone: 04-21-2021 15:57-0400 Diastolic blood pressure 83 mm[Hg] Fercho Ramachandranpara Work Phone: [facility] Work Phone: 04-21-2021 15:57-0400 Heart rate 81 /min Fercho Ramachandranpara Work Phone: [facility] Work Phone: 04-21-2021 15:57-0400 SaO2% (BldA) [Mass fraction] 99 % Fercho Ramachandranpara Work Phone: [facility] Work Phone: 04-21-2021 15:57-0400 Systolic blood pressure 121 mm[Hg] Fercho Johnsonjapara Work Phone: [facility] Work Phone: 03-24-2021 15:21-0400 Body height 160.02 cm Fercho D Alexjapara Work Phone: [facility] Work Phone: 03-24-2021 15:21-0400 Body mass index (BMI) [Ratio] 24.98 kg/m2 Fercho D Alexjapara Work Phone: [facility] Work Phone: 03-24-2021 15:21-0400 Body surface area Derived from formula 1.67 m2 Fercho D Madiepara Work Phone: [facility] Work Phone: 03-24-2021 15:21-0400 Body temperature 97.5 [degF] Fercho Ramachandranpara Work Phone: [facility] Work Phone: 03-24-2021 15:21-0400 Body weight 63.96 kg Fercho D Madiepara Work Phone: [facility] Work Phone: 03-24-2021 15:21-0400 Diastolic blood pressure 76 mm[Hg] Fercho D Alexjapara Work Phone: [facility] Work Phone: 03-24-2021 15:21-0400 Heart rate 83 /min Fercho D Alexjapara Work Phone: [facility] Work Phone: 03-24-2021 15:21-0400 SaO2% (BldA) [Mass fraction] 98 % Fercho D Alexjapara Work Phone: [facility] Work Phone: 03-24-2021 15:0400 Systolic blood pressure 113 mm[Hg] Fercho Lane Work Phone: [facility] Work Phone: Encounters Encounter Date Encounter Type Care Provider Facility Start: 12-27-[address] Facilit y:[facility] Start: 12-27-2024 Non-patient / Non-visit Gabriel Meyer DO -[facility] Start: 12-27-2024 End: 12-27-2024 Admission to same day surgery center Gabriel Meyer DO -Endoscopy Work Phone: Start: 12-27-2024 End: 12-27-[address] Fercho Lane MD Work Phone: [facility] Work Phone: Start: 12-26-2024 Encounter for other preprocedural examination Gabriel [facility] Start: 11-01-2024 End: 11-01-2024 Patient encounter procedure Chandrika NAPIRE [facility] Work Phone: Start: 11-01-2024 End: 11-01-2024 ambulatory Chandrika Uriostegui Facility:[facility] Start: 11-01-2024 End: 11-01-2024 [facility] Start: 05-01-2024 ambulatory Baljinder Root Facility:[facility] Start: 05-01-2024 End: 05-01-2024 Emergency department patient visit ARNEL MENCHACA Facility:[facility] Start: 01-06-2024 End: 01-06-2024 Subsequent hospital visit by physician Larissa Almag[address] 1 [facility] Comment on above: Intractable cluster headache syndrome, unspecified chronicity pattern Start: 01-06-2024 End: 01-06-[address] [facility] Start: 12-22-2023 End: 12-22-[address] [facility] Start: 12-22-2023 End: 06-20-2024 Encounter for general adult medical examination with abnormal findings FERCHO LANE [facility] Start: 12-22-2023 Patient encounter procedure [address] Work Phone: Start: 12-28-2022 End: 12-28-2022 ambulatory [facility] Facility:[facility] Start: 11-23-2022 End: 11-23-2022 ambulatory [facility] Facility:[facility] Start: 10-25-2022 End: 10-25-2022 Office outpatient visit [address] MD Work Phone: [facility] Comment on above: Migraine with aura a nd without status migrainosus, not intractable (Primary Dx); Acquired hypothyroidism; Hyperlipemia, mixed; Moderate episode of recurrent major depressive disorder (CMS/HCC); Periodic headache syndrome, not intractable; Iron deficiency anemia due to chronic blood loss; Fibromyalgia; Sinusitis, unspecified chronicity, unspecified location Start: 08-10-2022 End: 08-10-2022 ambulatory [facility] Facility:[facility] Start: 08-10-2022 End: 08-10-2022 Patient encounter procedure Rhiannon Virgen SHIRT FINISHER.JEWELRY SETTER Work Phone: OB/Gynecology Comment on above: Encounter for gyneco logical examination (general) (routine) without abnormal findings (Primary Dx) Start: 08-10-2022 End: 08-10-2022 Patient encounter status Rhiannon Virgen SHIRT FINISHER.JEWELRY SETTER Work Phone: OB/Gynecology Start: 05-31-[address] Facil [id number] Start: 05-31-2022 Office outpatient visit [address] Work Phone: [facility] Work Phone: Start: 01-07-2022 AUDIT Fercho almeida Work Phone: [facility] Work Phone: Start: 12-10-2021 Chart Update Fercho almeida Work Phone: [facility] Work Phone: Start: 12-08-2021 ambulatory Valji D Munjapara Facil [id number] Start: 12-08-2021 AUDIT Valji D Munjap elle Work Phone: -[facility] Work Phone: Start: 12-02-2021 Rx Renewal Valji D Munjap elle Work Phone: -[facility] Work Phone: Start: 11-05-2021 AUDIT Valji D Munjap elle Work Phone: -[facility] Work Phone: Start: 09-07-2021 AUDIT Valji D Munjap elle Work Phone: -[facility] Work Phone: Start: 08-31-2021 Rx Renewal Valji D Munjap elle Work Phone: -[facility] Work Phone: Start: 04-28-2021 AUDIT Valji D Munjap elle Work Phone: -[facility] Work Phone: Start: 04-23-2021 Chart Update Valji D Munjap elle Work Phone: -[facility] Work Phone: Start: 04-16-2021 AUDIT Valji D Munjap elle Work Phone: -[facility] Work Phone: Start: 04-14-2021 AUDIT Valji D Munjap elle Work Phone: -[facility] Work Phone: Start: 03-24-2021 Office outpatient visit 25 minutes Valji D Munjapara Work Phone: -[facility] Work Phone: Start: 03-12-2021 AUDIT Fercho almeida Work Phone: -[facility] Work Phone: Procedures Date Procedure Procedure Detail Performing Clinician Start: 12-27-[address] Fercho Lane MD Work Phone: Start: 11-01-[address] Endomysial antibody IgA level Dr. Fercho Lane MD Work Phone: Start: 01-06-2024 Ct head/brain w/o co ntrast material Fercho Lane MD Work Phone: Start: 12-08-2021 Thyrotropin [Units/v olume] in Serum or Plasma Fercho Lane MD Work Phone: Start: 04-02-2021 Microscopic observat ion [Identifier] in Cervix by Cyto stain [facility] Start: 01-02-2020 Lipid 1996 panel - S leni or Plasma Fercho Lane MD Work Phone: Start: 08-08-2019 Electrocardiogram Plan of Treatment Date Care Activity Detail Author Start: 2037 Zoster Vaccines (1 o f 2) Zoster Vaccines (1 of 2) [facility] Start: 04-02-2026 HPV TESTING HPV TESTING [facility] Start: 04-02-2026 PAP TESTING PAP TESTING [facility] Start: 01-01-2025 Lipid panel Lipid Panel [facility] Start: 12-27-2024 Patient [facility] Start: 12-22-2024 Yearly Adult Physical Yearly Adult P hysical [facility] Start: 04-02-2024 Screening for malign ant neoplasm of cervix [facility] Start: 03-04-2024 Influenza vaccination Influenza Vacc ine (#1) [facility] Start: 03-04-2023 Influenza vaccination Influenz a Vaccine (Season Ended) [facility] Start: 12-08-2022 Thyroid stimulating hormone measurement TSH Level [facility] Start: 10-25-2022 End: 10-26-2023 Arthritis Panel (CMS) Arthritis Panel (CMS) Lab Routine Fibromyalgia Expected: 10/25/2022 (Approximate), Expires: 10/26/2023 [facility] Work Phone: Comment on above: Expected: 10/25/2022 (Approximate), Expires: 10/26/2023 Start: 07-04-2022 DEPRESSION ASSESSMENT DEPRESSION ASS ESSMENT [facility] Start: 03-04-2022 Influenza vaccination INFLUENZA (#1) [facility] Start: 12-08-2021 EPV, Provider: Fercho Lane, Status: Pen, Time: 1:45 PM EPV, Provider: Fercho Lane, Status: Pen, Time: 1:45 PM -[facility] Work Phone: Start: 11-23-2021 EPV, Provider: Fercho Lane, Status: Pen, Time: 4:15 PM EPV, Provider: Fercho Lane, Status: Pen, Time: 4:15 PM [facility] Work Phone: Start: 11-17-2021 COVID-19 Vaccine (3 - Booster for Pfizer series) COVID-19 Vaccine (3 - Booster for Pfizer series) [facility] Start: 11-17-2021 COVID-19 VACCINE (4 - Booster for Pfizer series) COVID-19 VACCINE (4 - Booster for Pfizer series) [facility] Start: 04-21-2021 FUV, Provider: Fercho Lane, Status: Pen, Time: 2:30 PM FUV, Provider: Fercho Lane, Status: Pen, Time: 2:30 PM [facility] Work Phone: Start: 04-16-2021 FUV, Provider: Fercho Lane, Status: Pen, Time: 4:45 PM FUV, Provider: Fercho Lane, Status: Pen, Time: 4:45 PM [facility] Work Phone: Start: 2009 DTaP/Tdap/Td Vaccine s (1 - Tdap) DTaP/Tdap/Td Vaccines (1 - Tdap) [facility] Start: 09-06-2008 Screening for malign ant neoplasm of cervix [facility] Start: 2006 Urine microalbumin profile DTAP,TDAP,TD (1 - Tdap) [facility] Start: 2005 Diabetes mellitus screening Diabetes Screening [facility] Start: 2005 Hepatitis C screening Hepatitis C Sc reening [facility] Start: 1988 MMR Vaccines (1 of 1 - Standard series) MMR Vaccines (1 of 1 - Standard series) [facility] Start: 1988 Varicella vaccination Varicell a Vaccines (1 of 2 - 2-dose childhood series) [facility] Start: 1987 HEPATITIS B (1 of 3 - 3-dose series) HEPATITIS B (1 of 3 - 3-dose series) [facility] Start: 1987 Hepatitis B Vaccines (1 of 3 - 3-dose series) Hepatitis B Vaccines (1 of 3 - 3-dose series) [facility] Start: 1987 HIV screening HIV Screening [facility] Start: 1987 Yearly Adult Physical Yearly Adult P hysical [facility] CBC W Auto Different ial panel - Blood CBC and Auto Differential Lab Routine Iron deficiency anemia due to chronic blood loss Ordered: 10/25/2022 [facility] Service Area Work Phone: Comment on above: Ordered: 10/25/2022 Comprehensive metabo lic 2000 panel - Serum or Plasma Comprehensive Metabolic Panel Lab Routine Hyperlipemia, mixed Ordered: 10/25/2022 [facility] Work Phone: Comment on above: Ordered: 10/25/2022 Lipid 1996 panel - Serum or Plasma Lipid Panel Lab Routine Hyperlipemia, mixed Ordered: 10/25/2022 [facility] Work Phone: Comment on above: Ordered: 10/25/2022 Patient referral [facility] Work Phone: TSH with reflex to F ree T4 if abnormal TSH with reflex to Free T4 if abnormal Lab Routine Acquired hypothyroidism Ordered: 10/25/2022 [facility] Work Phone: Comment on above: Ordered: 10/25/2022 Immunizations Immunization Date Immunization Notes Care Provider Mando gaffney 09-22-2021 Comirnaty 30 MCG/0.3 ML Intramuscular Suspension Valji D Munjapara Work Phone: [facility] Work Phone: 03-24-2021 influenza virus vaccine, unspecified formulation Valji D Munjapara Work Phone: [facility] Work Phone: Comment on above: Series: 09-18-2020 Pfizer-BioNTech COVID-19 Vacc 30 MCG/0.3ML Intramuscular Suspension Valji D Munjapara Work Phone: [facility] Work Phone: Comment on above: Series: 08-28-2020 Pfizer-BioNTech COVID-19 Vacc 30 MCG/0.3ML Intramuscular Suspension Valji D Munjapara Work Phone: [facility] Work Phone: Comment on above: Series: 04-11-2020 influenza, injectabl e, quadrivalent, preservative free Valji D Munjapara Work Phone: [facility] Work Phone: 05-14-2019 influenza, injectabl e, quadrivalent, contains preservative Valji D Munjapara Work Phone: [facility] 07-04-2014 tetanus and diphther ia toxoids, adsorbed, preservative free, for adult use (2 Lf of tetanus toxoid and 2 Lf of diphtheria toxoid) Valji D Munjapara Work Phone: [facility] Work Phone: Comment on above: Series: Payers Date Payer Category Payer Self-pay 2019 Unknown 2019 Unknown [id number] 1987 Unknown [id number] [id number] 1987 Unknown [id number] [id number]. [id number] 1987 Unknown [id number] 2.16.8 [id number] 1987 Unknown [id number] 2.16.8 [id number] 1987 Unknown [id number] 2.16.8 [id number] Unknown [id number] 2.16.8 [id number] Unknown [id number] 2.16.8 [id number] Unknown [id number] 2.16.8 [id number] Unknown [id number] 2.16.8 [id number] Unknown [id number] 2.16.8 [id number] Social History Date Type Detail Facility Start: 10-25-2022 End: 12-22-2023 Former smoker Former smoker -[facility] Work Phone: Start: 08-10-2022 End: 12-25-2024 Tobacco smoking status [facility] Never smoked tobacco [facility] Work Phone: Start: 08-10-2022 End: 10-25-2022 Tobacco use and exposure Smokeless tobacco non-user [facility] Work Phone: Start: 08-10-2022 End: 12-22-2023 Alcohol intake Current drinker of alcohol (finding) [facility] Start: 08-08-2019 History SDOH Alcohol Binge 3 [facility] Start: 04-02-2021 Education 17 [facility] Start: 03-21-2017 [facility] Start: 1985 Sex Assigned At Female C [facility] Work Phone: Start: 10-25-2022 Tobacco smoking status NHIS Ex-smoker [facility] Work Phone: History of tobacco use Current smoker [facility] Work Phone: History of tobacco use Cigarette Smoker [facility] Work Phone: Start: 10-25-2022 End: 12-22-2023 Tobacco use panel [facility] Work Phone: Start: 10-25-2022 Alcohol Comment social [facility] Work Phone: Start: 1985 Sex Assigned At Not on file [facility] Work Phone: Start: 10-15-2022 End: 01-06-2024 Exposure to SARS-CoV-2 (event) Not sure [facility] NEGATED: Highlighted row Not [facility] Goals Date Patient Goal Desired Activity /State Mental Status Date Assessment Result Facility 12-27-2024 Cognitive function Voice/Name [facility] Work Phone: Clinical Notes 08-10-2022 to 12-27-2024 Note Date & Type Note Facility 12-27-2024 Procedure note [facility] 12-27-2024 Procedure note [facility] 12-27-2024 Consult note [facility] 12-27-2024 Procedure note [facility] 12-27-2024 Procedure note [facility] 12-27-2024 Consult note [facility] 12-27-2024 History and physi tia note [facility] 11-01-2024 Evaluation note Diagnosis Onset Date Resolution Abdominal pain acute November 01 3:25pm Bloating acute November 01, 2024 3:25pm Abdominal pain acute December 27, 2024 10:50am Bloating acute December 27 10:50am [facility] Work Phone: 1(983) 114-956406-27-2023 NoteHNO ID: [id number] Author: Cally Gallardo [facility] Service: ? Author Type: Health Care Facility Administrator Type: Progress Notes Filed: 12/28/2022 8:25 AM Note Text: Radiology Service Progress Note PATIENT NAME: Virginia Rodriguez DATE OF SERVICE: December 28, 2022 TIME: 8:08 AM PATIENT IDENTITY VERIFICATION COMPLETED USING TWO (2) IDENTIFIERS: Name and Date of confirmed by patient verbally. FALL SCREENING: Has the patient had 2 falls in the last year or 1 fall with injury or currently using an Ambulatory Assistive Device (Walker, Cane, Wheelchair, Crutches, etc.)? No PATIENT GENDER DATA: Female. status: : No status: NO. PATIENT RELEVANT IMPLANT DATA REVIEWED: Not Applicable RADIOLOGY DEPARTMENT: Mammography PERIPHERAL IV DATA: Not applicable SIGNED BY: Cally Gallardo [facility] [employer] December 28, 2022 8:08 [facility]05-23-2023 NoteHNO ID: [id number] Author: Rhiannon Virgen APRN.JEWELRY SETTER Service: ? Author Type: Nurse Practitioner Type: Progress Notes Filed: 11/23/2022 4:29 PM Note Text: Virginia Rodriguez is a 37 year old female who presents for problem visit breast pain and vaginal lump for 1 month(s). HPI: pt c/o breast pain on the right side that started a month ago with her period and has not subsided. She denies any skin or size changes and no nipple discharge. She also noticed a vaginal lump on the left side of the labia that started about 1 month also. She states that it looks like a pimple. 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 LMP: 11/01/2022, Having periods Age at Menarche: Age at First : Age at Menopause: Electrical Panel Builder History Comments: Sexual Activity: Yes; Male Contraception: Condom PAST MEDICAL HISTORY Diagnosis Date Depression Generalized anxiety disorder GERD (gastroesophageal reflux disease) Hypothyroidism NEGATIVE MEDICAL HISTORY PAST SURGICAL HISTORY Procedure Laterality Date NONE FAMILY HISTORY Problem Relation Age of Onset Thyroid Mother Hyperlipidemia Mother None Father other (Substance Abuse) Father Alcohol other (Diabetes Type 1) Brother type 1 Depression Brother None Sister Hypertension Maternal Grandmother Hyperlipidemia Maternal Grandmother other (Oral Cancer) Maternal Grandmother Hypertension Maternal Grandfather Hyperlipidemia Maternal Grandfather Heart disease Maternal Grandfather Hyperlipidemia Paternal Grandmother Hypertension Paternal Grandfather Hyperlipidemia Paternal Grandfather Diabetes Paternal Grandfather type 1 Mental illness Other Depression Other other (Substance Abuse) Other Social History Tobacco Use Smoking status: Never Smokeless tobacco: Never Vaping Use Vaping Use: Never used Substance Use Topics Alcohol use: Yes Comment: socially Drug use: No Current Outpatient Medications Medication Sig DULoxetine (CYMBALTA) 30 mg capsule Take 30 mg by mouth q 24 HR. levothyroxine (SYNTHROID) 50 mcg tablet Take 2 tablets by mouth once daily. Take 88 mcg No current facility-administered medications for this visit. Allergies As of Date: 11/23/2022 (No Known Allergies) Fully Assessed 11/23/2022 REVIEW OF SYSTEMS SEE HPI Expanded ROS: N/A Allergies and current medication updated:Yes EXAM: Wt 137 lb 6.4 oz (62.3kg) LMP 11/01/2022 GENERAL: pleasant, female in no apparent distress HEENT: Normocephalic, atraumatic, mucus membranes moist, and no lesions BREAST: soft, symmetric, no dominant mass, normal nipple-areolar complex, no lymphadenopathy, no nipple discharge, and dense area at the 3-4 o'clock position that is tender to palpation, the area expand from about 2 cm below the nipple to the inner aspect CHEST: Normal inspiratory effort PELVIC: external genitalia normal, normal Bartholin's glands, urethra, Wakefield's glands, physiologic discharge present, normal appearing perineal body and perianal region, small occulusion cyst NEURO: alert and oriented x3,exam grossly non-focal EXTREMITIES: normal ASSESSMENT/PLAN: 1. Breast pain, right - ICD9: 611.71, ICD10: N64.4 (primary diagnosis) - [facility] RIGHT - US BREAST LTD RIGHT 2. Vulvar cyst - ICD9: 624.8, ICD10: N90.7 No need for any treatment Rhiannon Virgen APRN.CNP Medical Decision Making: Problems: Low: Acute, uncomplicated illness or injury Data: Unique test(s) ordered: 2 Risk: Low: Low risk from testing/treatment Medical Decision Making [facility]: [facility] Evaluation + Plan note* Assessment & Plan Note - Fercho Lane MD - 10/25/2022 11:19 AM EDTAssociated Problem(s): Sinusitis Given Z-Telnexus Dosepak watch for QTc interval steroid psychosis get probiotics [facility] Work Phone: 1(167) 501-578204-24-2023 Miscellaneous Notes* Assessment & Plan Note - Fercho Lane MD - 10/25/2022 11:19 AM EDTAssociated Problem(s): Sinusitis Given Z-Kishor Medrol Dosepak watch for QTc interval steroid psychosis get probiotics * Assessment & Plan Note - Fercho Lane MD - 10/25/2022 11:18 AM EDT Associated Problem(s): Acquired autoimmune hypothyroidism Check TSH twice a year * Assessment & Plan Note - Fercho Lane MD - 10/25/2022 11:18 AM EDT Associated Problem(s): Moderate episode of recurrent major depressive disorder (CMS/HCC) Depression is chronic and quite common and notorious mental health disorder and it is quite common and widespread, there are several therapeutics available for depression now a days. It is consideredas chemical imbalance disorder and with medications , it can be adjusted. There are side effects from SSRI and SNRIs but on usp, they are well tolerated. Please do not feel awkward or shy to con tact us if feel tired, sleepy, lack of energy or aloof/ alone. Untreated depression can bring serious consequences including suicidal ideations, mental health counselling is available if need arises.Usually treatment of depression is long lasting therapy with periodic evaluations and follow ups. Pt with depression no longer have to feel frustrated, helpless or isolated.Detailed discussion was carried out. * Assessment & Plan Note - Fercho Lane MD - 10/25/2022 11:18 AM EDT Associated Problem(s): Migraine with aura and without status migrainosus, not intractable Advised Nurtec 75 mg q. as needed refer to CAT scan of the brain documented in this [facility] Work Phone: 1([phone]) 514-798304-24-2023 Evaluation + Plan note* Assessment & Plan Note - Fercho Lane MD - 10/25/2022 11:18 AM EDTAssociated Problem(s): Acquired autoimmune hypothyroidism Check TSH twice a year [facility] Work Phone: [phone]) 912-691204-24-2023 Evaluation + Plan note* Assessment & Plan Note - Fercho Lane MD - 10/25/2022 11:18 AM EDTAssociated Problem(s): Moderate episode of recurrent major depressive disorder (CMS/HCC) Depression is chronic and quite common and notorious mental health disorder and it is quite common and widespread, there are several therapeutics available for depression now a days. It is consideredas chemical imbalance disorder and with medications , it can be adjusted. 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 Please do not feel awkward or shy to con tact us if feel tired, sleepy, lack of energy or aloof/ alone. Untreated depression can bring serious consequences including suicidal ideations, mental health counselling is available if need arises.Usually treatment of depression is long lasting therapy with periodic evaluations and follow ups. Pt with depression no longer have to feel frustrated, helpless or isolated.Detailed discussion was carried out. [facility] Work Phone: [phone]) 647-859304-24-2023 Evaluation + Plan note* Assessment & Plan Note - Fercho Lane MD - 10/25/2022 11:18 AM EDTAssociated Problem(s): Migraine with aura and without status migrainosus, not intractable Advised Nurtec 75 mg q. as needed refer to CAT scan of the brain [facility] Work Phone: 1([phone]) 250-750504-24-2023 History of Present illness Narrative* Fercho Lane MD - 10/25/2022 10:00 AM EDT Patient ID: Virginia Rodriguez is a 37 y.o. female who presents for Sinusitis (4 days now) and Follow-up (She thinks that her thyroid is off). Assessment/Plan Problem List Items Addressed This Visit Endocrine/Metabolic Acquired hypothyroidism Relevant Orders TSH with reflex to Free T4 if abnormal Hematologic Iron deficiency anemia due to chronic blood loss Relevant Orders CBC and Auto Differential Infectious/Inflammatory Sinusitis Given Z-Kishor Medrol Dosepak watch for QTc interval steroid psychosis get probiotics Other Hyperlipemia, mixed Relevant Orders Comprehensive Metabolic Panel Lipid Panel Moderate episode of recurrent major depressive disorder (CMS/HCC) Depression is chronic and quite common and notorious mental health disorder and it is quite common and widespread, there are several therapeutics available for depression now a days. It is consideredas chemical imbalance disorder and with medications , it can be adjusted. There are side effects from SSRI and SNRIs but on usp, they are well tolerated. Please do not feel awkward or shy to con tact us if feel tired, sleepy, lack of energy or aloof/ alone. Untreated depression can bring serious consequences including suicidal ideations, mental health counselling is available if need arises.Usually treatment of depression is long lasting therapy with periodic evaluations and follow ups. Pt with depression no longer have to feel frustrated, helpless or isolated.Detailed discussion was carried out. Migraine with aura and without status migrainosus, not intractable - Primary Advised Nurtec 75 mg q. as needed refer to CAT scan of the brain Other Visit Diagnoses Fibromyalgia Relevant Orders Arthritis Panel (CMS) Source of history: Nurse, Medical personnel, Medical record, Patient. History limitation: None. HPI 37-year-old patient have a hypothyroidism fibromyalgia anemia migraine hypertension hyperlipidemia anxiety depression, acute on chronic unilateral headache diagnosis [facility] with the sinusitis given Z-Kishor Medrol Dosepak Patient did try the Trintellix for the depression because of the cost seen not taking medication advised we replace with the Cymbalta that will help for the depression and also migraine headache. With the fibromyalgia work-up refer patient to the neurologist No Known Allergies Medications Current Outpatient Medications Medication Sig Dispense Refill levothyroxine (Synthroid, Levoxyl) 88 mcg tablet TAKE 1 TABLET DAILY IN THE AM TUESDAY THROUGH TUESDAY AND 07/05 ON TUESDAY AND TUESDAY Trintellix 10 mg tablet tablet Take 1 tablet (10 mg) by mouth once daily. No current facility-administered medications for this visit. Objective Visit Vitals BP 110/74 (BP Location: Left arm, Patient Position: Sitting, BP Cuff Size: Adult) Pulse 86 Temp 36.4 C (97.5 F) Ht 1.6 m (5' 3) Wt 63 kg (139 lb) SpO2 97% BMI 24.62 kg/m Smoking Status Former BSA 1.67 m PHYSICAL EXAM General: NAD. NCAT. Aox3 HEENT: Maxillary sinus tenderness cardiovascular: RRR. No MRG. S1/S2 wnl. Respiratory: CTABL. No acute respiratory distress. GI: Soft, NT abdomen. BS present x 4. : No CVAT BL MSK: ROM x 4. CTLS non-tender. Extremities: No edema. Cap refill < 2 sec. Skin: No rashes or bruises. Neuro: Ophthalmic migraine with the depression psych: Mood wnl. ROS Constitutional: Denies fevers, chills, fatigue, weight loss/gain HEENT: Denies MORALES, vision changes, hearing loss, sore throat Cardiac: Denies CP, palpitations, edema Respiratory: Denies SOB, cough, pleuritic chest pain, PND, orthopnea GI: Denies N/V/D, abd pain, constipation, black/bloody stools : Denies urinary changes, frequency, hematuria, urgency, retention, flank pain MSK: Denies joint pain, joint swelling, back pain, neck pain, extremity pain Neuro: Denies numbness, weakness, tingling Immunization History Administered Date(s) Administered [facility] Purple Cap SARS-CoV-2 08/28/2020, 09/18/2020 No visits with results within 4 Month(s) from this visit. Latest known visit with results is: [facility] Encounter on 12/08/2021 Component Date Value Ref Range Status TSH 12/08/2021 3.08 0.44 - 3.98 mIU/L Final Free T4 12/08/2021 1.25 0.78 - 1.48 ng/dL Final T3, Free 12/08/2021 3.2 2.3 - 4.2 pg/mL Final Radiology: Reviewed imaging in powerchart. No results found. Family History Problem Relation Name Age of Onset Thyroid disease Mother Alcohol abuse Father Addiction problem Father Social History Socioeconomic History Marital status: Single Spouse name: None Number of children: None Years of education: None Highest education level: None Occupational History None Tobacco Use Smoking status: Former Packs/day: 0.25 Years: 1.00 Pack years: 0.25 Types: Cigarettes Smokeless tobacco: Never Vaping Use Vaping status: None Substance and Sexual Activity Alcohol use: Yes Comment: social Drug use: Never Sexual activity: None Other Topics Concern None Social History Narrative None Social Determinants of Health Financial Resource Strain: Not on file Food Insecurity: Not on file Transportation Needs: Not on file Physical Activity: Not on file Stress: Not on file Social Connections: Not on file Intimate Partner Violence: Not on file Housing Stability: Not on file Past Medical History: Diagnosis Date Other conditions influencing health status No history of previous surgery Personal history of other endocrine, nutritional and metabolic disease 03/24/2021 History of vitamin D deficiency History reviewed. No pertinent surgical history. * Cannot find OR log * Charting was completed using voice recognition technology and may include unintended errors. [facility] [place] Work Phone: 1(237) 694-505902-07-2023 NoteHNO ID: [id number] Author: Rhiannon Virgen APRN.JEWELRY SETTER Service: ? Author Type: Nurse Practitioner Type: Progress Notes Filed: 08/10/2022 2:47 PM Note Text: Virginia is a 37 year old who presents for an annual gynecologic exam without complaints. Menses: cycles every 25-30 days and 2-3 days of flow. Contraception: condoms HPV vaccine: No Last Pap: 04/13/2021 normal HPV: 04/07/2021 negative History of abnormal pap: ?? HPV Last mammogram: never Sexually active: Yes Patient concerns for STD exposure: No. 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 History Comments: Sexual Activity: Yes; Male Contraception: Condom PAST MEDICAL HISTORY Diagnosis Date Depression Generalized anxiety disorder GERD (gastroesophageal reflux disease) Hypothyroidism NEGATIVE MEDICAL HISTORY PAST SURGICAL HISTORY Procedure Laterality Date NONE FAMILY HISTORY Problem Relation Age of Onset Thyroid Mother Hyperlipidemia Mother None Father other (Substance Abuse) Father Alcohol other (Diabetes Type 1) Brother type 1 Depression Brother None Sister Hypertension Maternal Grandmother Hyperlipidemia Maternal Grandmother other (Oral Cancer) Maternal Grandmother Hypertension Maternal Grandfather Hyperlipidemia Maternal Grandfather Heart disease Maternal Grandfather Hyperlipidemia Paternal Grandmother Hypertension Paternal Grandfather Hyperlipidemia Paternal Grandfather Diabetes Paternal Grandfather type 1 Mental illness Other Depression Other other (Substance Abuse) Other SOCIAL HISTORY Social History Tobacco Use Smoking status: Never Smokeless tobacco: Never Vaping Use Vaping Use: Never used Substance Use Topics Alcohol use: Yes Comment: socially Drug use: No REVIEW OF SYSTEMS Abdomen: No abdominal pain, nausea, vomiting, diarrhea, or constipation. No bloating, early satiety, indigestion, or increased flatulence. Bladder: No dysuria, gross hematuria, urinary frequency, urinary urgency, or incontinence. Breast: No breast lumps, nipple d/c, overlying skin changes, redness or skin retraction. Allergies and current medication updated:Yes EXAM: Ht 5' 4.5 (1.64m) Wt 139 lb (63.1kg) LMP 08/02/2022 BMI 23.50 kg/(m2). GENERAL: pleasant, female in no apparent distress HEENT: Normocephalic, atraumatic, and no lesions NECK: Supple, full range of motion, no adenopathy, and thyroid normal DERMATOLOGY: Normal, without lesions, non-icteric, and non-hirsute BREAST: soft, non-tender, symmetric, no dominant mass, normal nipple-areolar complex, no lymphadenopathy, and no nipple discharge CHEST: Normal inspiratory effort ABDOMEN: soft, non-tender, and no masses PELVIC: external genitalia normal, normal Bartholin's glands, urethra, Wakefield's glands, no vulvar lesions, no cervical lesions, good vaginal support, physiologic discharge present, normal appearing perineal body and perianal region BIMANUAL: uterus normal size, shape and consistency, no adnexal masses, and non-tender RECTOVAGINAL: deferred. NEURO: alert and oriented x3,exam grossly non-focal EXTREMITIES: normal ASSESSMENT/PLAN: 1) Health maintenance: Pap/HPV up to date. Mammogram starting age 40. Nutrition, exercise and routine health maintenance exams reviewed. Calcium/Vitamin D supplementation information provided. 2) Contraception: condoms. Contraceptive options reviewed and information provided. 3) STD screening: Declined STD check. 4) Follow up one year or sooner as needed Rhiannon Virgen APRN.[facility]02-07-2023 History of Present illness Narrative* Rhiannon Virgen APRN.JEWELRY SETTER - 08/10/2022 2:23 PM EST Virginia is a 37 year old who presents for an annual gynecologic exam without complaints. Menses: cycles every 25-30 days and 2-3 days of flow. Contraception: condoms HPV vaccine: No Last Pap: 04/13/2021 normal HPV: 04/07/2021 negative History of abnormal pap: ?? HPV Last mammogram: never Sexually active: Yes Patient concerns for STD exposure: No. 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 History Comments: Sexual Activity: Yes; Male Contraception: Condom PAST MEDICAL HISTORY Diagnosis Date Depression Generalized anxiety disorder GERD (gastroesophageal reflux disease) Hypothyroidism NEGATIVE MEDICAL HISTORY PAST SURGICAL HISTORY Procedure Laterality Date NONE FAMILY HISTORY Problem Relation Age of Onset Thyroid Mother Hyperlipidemia Mother None Father other (Substance Abuse) Father Alcohol other (Diabetes Type 1) Brother type 1 Depression Brother None Sister Hypertension Maternal Grandmother Hyperlipidemia Maternal Grandmother other (Oral Cancer) Maternal Grandmother Hypertension Maternal Grandfather Hyperlipidemia Maternal Grandfather Heart disease Maternal Grandfather Hyperlipidemia Paternal Grandmother Hypertension Paternal Grandfather Hyperlipidemia Paternal Grandfather Diabetes Paternal Grandfather type 1 Mental illness Other Depression Other other (Substance Abuse) Other SOCIAL HISTORY Social History Tobacco Use Smoking status: Never Smokeless tobacco: Never Vaping Use Vaping Use: Never used Substance Use Topics Alcohol use: Yes Comment: socially Drug use: No REVIEW OF SYSTEMS Abdomen: No abdominal pain, nausea, vomiting, diarrhea, or constipation. No bloating, early satiety, indigestion, or increased flatulence. Bladder: No dysuria, gross hematuria, urinary frequency, urinary urgency, or incontinence. Breast: No breast lumps, nipple d/c, overlying skin changes, redness or skin retraction. Allergies and current medication updated:Yes EXAM: Ht 5' 4.5 (1.64m) Wt 139 lb (63.1kg) LMP 08/02/2022 BMI 23.50 kg/(m^2). GENERAL: pleasant, female in no apparent distress HEENT: Normocephalic, atraumatic, and no lesions NECK: Supple, full range of motion, no adenopathy, and thyroid normal DERMATOLOGY: Normal, without lesions, non-icteric, and non-hirsute BREAST: soft, non-tender, symmetric, no dominant mass, normal nipple-areolar complex, no lymphadenopathy, and no nipple discharge CHEST: Normal inspiratory effort ABDOMEN: soft, non-tender, and no masses PELVIC: external genitalia normal, normal Bartholin's glands, urethra, Wakefield's glands, no vulvar lesions, no cervical lesions, good vaginal support, physiologic discharge present, normal appearing perineal body and perianal region BIMANUAL: uterus normal size, shape and consistency, no adnexal masses, and non-tender RECTOVAGINAL: deferred. NEURO: alert and oriented x3,exam grossly non-focal EXTREMITIES: normal ASSESSMENT/PLAN: 1) Health maintenance: Pap/HPV up to date. Mammogram starting age 40. Nutrition, exercise and routine health maintenance exams reviewed. Calcium/Vitamin D supplementation information provided. 2) Contraception: condoms. Contraceptive options reviewed and information provided. 3) STD screening: Declined STD check. 4) Follow up one year or sooner as needed Rhiannon Virgen APRN.DONYA [facility] Author Federico Vega [facility] Note Date/Time December 27, 2024 12:[address] [facility] Medical Records Department [address] [place] [address] Pre-Anesthesia Evaluation 12/27/24 1158 MR#: [id number] Acct: [id number] Name: VIRGINIA BRODERICK Rep #:[id number] : 1985 39 From: Federico Vega MD PCP: Dr. Fercho Lane MD Status:RE G CAC Y Race: C Location: [place] [address] ASA Classification* ASA Classification ASA Classification: 2 Assessment & Plan Anesthesia* Anesthesia Assessment Anesthesia Assessment: Discussed sedation and/or anesthesia options, risks, benefits, and alternatives with patient/parents/legal guardian/POA. Questions invited. The patient/parents/legal guardian/POA seems to understand and agrees to proceedwith anesthesia plan. Reviewed the physical assessment, medical history, allergy history and patient home medications list prior to surgery/procedure/anesthetic and documented any changes. Performed airway and anesthesia risk assessments. Anesthesia Type Anesthesia Type: MAC History Source History Obtained from:: Patient and Chart Anesthesia Focused Assessment* Temperature: 98.5 F Pulse Rate: 89 Blood Pressure: 118/70 Respiratory Rate: 16 Pulse Ox: 99 Oxygen Delivery Method: Room Air Airway Assessment Mouth opens: >3 cm Mallampati Score: IV Teeth Condition: Chipped/Broken (Top right tooth is chipped.) and Missing (Patient is missing tooth left lower jaw.) Neck Range of motion (ROM): Full ROM Labs Anesthesia Preop lab: CBC WBC 8.8 K/mm3 (4.4-11.0) 11/01/24 16:16 11/01/24 RBC 4.45 M/mm3 (4.2-5.4) 11/01/24 16:16 11/01/24 Hgb 13.3 g/dL (12.0-15.0) 11/01/24 16:16 11/01/24 Hct 39.3 % (37-47) 11/01/24 16:16 11/01/24 Plt Count 294 K/mm3 (150-450) 11/01/24 16:16 11/01/24 CHEMISTRY Potassium 3.8 mmol/L (3.3-5.1) 11/01/24 16:16 11/01/24 Sodium 140 mmol/L (133-145) 11/01/24 16:16 11/01/24 BUN 15 mg/dL (4-19) 11/01/24 16:16 11/01/24 Creatinine 0.69 mg/dL (0.70-1.20) L 11/01/24 16:16 Glucose 94 mg/dL (70-99) 11/01/24 16:16 11/01/24 TSH 1.56 uIU/mL (0.358-3.74) 03/12/20 11:55 COAG Urine Test Negative Negative 12/27/24 11:00 12/27/24 Pre-Assessment Diagnosis/Proposed Procedure Planned Operative Procedure(s): EGD/CSCOPE Anesthesia History Anesthesia History - sprigger: Anesthesia History - sprigger Hx Hospitalization No 12/25/24 15:07 Any Problems With Anesthesia No 12/25/24 15:07 Cholinesterase deficiency No 12/25/24 15:07 You/Your Family Experience No 12/25/24 15:07 fever (hyperthermia) with Relationship Recent Exposure to Contagious No 12/27/24 11:27 Disease Does patient have nerve No 12/25/24 15:07 stimulator Patient instructed to have device shut off --Does patient have Pacemaker No 12/27/24 11:27 or ICD? When Was Last Pacemaker Check QUESTION #4 FULL TEXT: You/Your Family Experience fever (hyperthermia) with Anesthesia Last Oral Intake Last Oral intake: Last Oral Intake NPO since 09:00 12/27/24 11:27 Meds taken in AM with sips of No 12/27/24 11:27 water? Meds patient instructed to take am of surgery Any additional information?: Yes NPO since: 09:00 (Patient finished prep at 9 AM. Along with some water.) Meds taken in AM with sips of water?: No PONV PONV - sprigger: PONV - sprigger Female Yes 12/25/24 15:07 HX of Motion Sickness No 12/25/24 15:07 HX of N/V After Surgery No 12/25/24 15:07 Non-Smoker No 12/25/24 15:07 Duration of Surgery greater No 12/25/24 15:07 than 60 minutes Number of Risk Factors 1 12/25/24 15:07 PONV Score Low Risk 12/25/24 15:07 Height & Weight Height & Weight: Anesthesia: Height & Weight Height 5 ft 3 in 12/27/24 11:27 Weight: 63 kg 12/27/24 11:27 Body Mass Index (BMI) 24.5 12/27/24 11:27 Respiratory Assessment Respiratory Assessment - sprigger: Respiratory Tract Infection Hx - sprigger Hx Respiratory Tract Infection No 12/25/24 15:07 STOP Sleep Apnea STOP Sleep Apnea - sprigger: STOP Sleep Apnea - sprigger Hx Hypertension No 12/25/24 15:07 Hx Sleep Apnea No 12/25/24 15:07 CPAP BIPAP Do you snore loudly (louder No 12/25/24 15:07 than talking or can be heard Do you often feel tired/ Yes 12/25/24 15:07 fatigued/ sleepy during daytime? Has anyone observed you stop No 12/25/24 15:07 breathing during sleep? STOP Results Negative 12/25/24 15:07 QUESTION #5 FULL TEXT : Do you snore loudly (louder than talking or can be heard through closed doors)? 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 Specify any problems Hx of Preganancy in last 3 No 12/25/24 15:07 Months Nurse Filling Out Transfusion DSCHRIBER 12/25/24 15:07 & Questions: Date: 12/25/24 12/25/24 15:07 Time: 15:08 12/25/24 15:07 Patient unable to answer at this time (ie. confused, unrespo /Reproduction History /Reproductive History - sprigger: /Reproductive Hx- sprigger Hx Now No 12/25/24 15:07 Gestational Age (in weeks): EDC: Hx Hx Para Hx Section SAB No 12/25/24 15:07 Active Medications Active Medications: Current Medications Generic Name Dose Route Start Last Admin Trade Name Freq PRN Reason Stop Dose Admin Lactated Ringer's 1,000 mls @ 15 mls/hr 12/27/24 11:15 12/27/24 11:32 IV 15 mls/hr .Q48H BRITTANY Administration PFSH Medical History Wears contact lenses Depression Anxiety Marijuana use Alcohol use Thyroid disease Low iron Migraine headache Heartburn Non-smoker Home Medications ?Medication ?Instructions ?Recorded ?Last Taken ?Type levothyroxine 100 mcg tablet 100 mcg PO QHS 12/25/24 0 12/25/24 History (Synthroid) sertraline 50 mg tablet 50 mg PO QHS 12/25/24 History Allergy/AdvReac Type Severity Reaction Status Date / Time No Known Allergies Allergy Verified 12/27/24 11:26 Surgical History Hx of oral surgery Social History Smoking Status: Never smoker Review of Systems (Anesthesia) ROS Narrative System reviewed and no additional complaints, except as documented. 12/27/24 1214 <Electronically signed by Federico roberts MD> Date _ Federico Vega MD Cosigner Signature: Date CC: ~ Signed [facility] Work Phone: Consult note Author Jose J Arriaza [facility] Note Date/Time December 27, 2024 1:[address] [facility] Medical Records Department [address] [place] [address] Anesthesia Postop Eval I 12/27/24 1300 MR#: [id number] Acct: [id number] Name: VIRGINIA BRODERICK Rep #:[id number] : 1985 39 From: Jose J ANDERSON PCP: Dr. Fercho Lane MD Status:RE G SDC Y Race: C Location: [place] [address] Anesthesia: Postop Eval I Current Vital Signs Temperature: 97.8 F Pulse Rate: 70 Blood Pressure: 96/67 Respiratory Rate: 16 Pulse Ox: 97 Assessment Airway patent: Yes Spontaneous unlabored respirations: Yes nausea: No Vomiting: No Anesthesia Complication: No Fluid Hydration Crystalloid volume administer (ml): 300 Total IV fluid infused: 300 Progress Note Anesthesia document: Postop Eval 1 completed: Yes 12/27/24 1301 <Electronically signed by Jose J Arriaza CRNA> Date _ Jose J Arriaza CRNA Cosigner Signature: Date CC: ~ Signed [facility] Work Phone: Evaluation note* Diagnosis Encounter for gynecological examination (general) (routine) without abnormal findings- [facility] Diagnosis Migraine with aura and without status migrainosus, not intractable- Primary Acquired hypothyroidism Unspecified hypothyroidism Hyperlipemia, mixed Mixed hyperlipidemia Moderate episode of recurrent major depressive disorder (CMS/HCC) Periodic headache syndrome, not intractable Iron deficiency anemia due to chronic blood loss Iron deficiency anemia secondary to blood loss (chronic) Fibromyalgia Unspecified myalgia and myositis Sinusitis, unspecified chronicity, unspecified location documented in this encounter [facility] [place] Work Phone: Evaluation note* Diagnosis Intractable cluster headache syndrome, unspecified chronicity pattern documented in this encounter [facility] [place] Work Phone: History and physical note Author Gabriel Meyer [facility] Note Date/Time December 27, 2024 11:4 3am [facility] Medical Records Department [address] [place] [address] History & Physical Exam 12/27/24 1140 MR#: [id number] Acct: [id number] Name: VIRGINIA BRODERICK Rep #:[id number] : 1985 39 From: Gabriel Meyer DO PCP: Dr. Fercho Lane MD Status:[facility] Location: [place] [address] HPI - General General Date of Admission: 12/27/24 Date of Service: 12/27/24 Chief Complaint: abdominal pain and bloating HPI Narrative VIRGINIA BRODERICK, is a 39 F who presents with the Chief Complaint: abd bloating Over the past 6 months patient has noticed abd bloating. This started out just after a meal but now she has bloating all the time. She has not noticed any specific triggering foods. She also endorses heartburn during but night but doesnot take PPI. On occasion she will wake up with nausea. She has a family hx of celiac disease in her younger sister. Pt father was diagnosed with colon cancer about two years ago at age 59. He had colectomy and is now undergoing chemotherapy. Pt has never had a colonoscopy. She denies constipation, diarrhea or blood in her stool. [facility] Medical History Wears contact lenses Depression Anxiety Marijuana use Alcohol use Thyroid disease Low iron Migraine headache Heartburn Non-smoker Home Medications ?Medication ?Instructions ?Recorded ?Last Taken ?Type levothyroxine 100 mcg tablet 100 mcg PO QHS 12/25/24 0 12/25/24 History (Synthroid) sertraline 50 mg tablet 50 mg PO QHS 12/25/24 History Allergy/AdvReac Type Severity Reaction Status Date / Time No Known Allergies Allergy Verified 12/27/24 11:26 Surgical History Hx of oral surgery Social History Smoking Status: Never smoker ROS Constitutional Constitutional: Denies fatigue, fever(s), poor appetite, weight gain or weight loss Gastrointestinal Gastrointestinal: Denies belching, bloating, change in bowel habits, change in stool character, chewing difficulty, coffee ground emesis, constipation, cramping, diarrhea, dyspepsia, dysphagia, early satiety, excessive flatus, fecalincontinence, heartburn, hematemesis, hematochezia, hemorrhoids, loose stools, melena, nausea, odynophagia, rectal bleeding, tenesmus, vomiting or weight changes Vital Signs Vital Signs Vital Signs: 12/27/24 11:27 12/27/24 11:27 Temperature 98.5 F Temperature Source Temporal Pulse Rate 89 Respiratory Rate 16 Respiratory Pattern Normal Blood Pressure 118/70 Blood Pressure Mean 86 Blood Pressure Source Monitor Blood Pressure Position Sitting Blood Pressure Location Left Arm Pulse Ox 99 Oxygen Delivery Method Room Air Weight Weight: 138 lb 14.259 oz Body Mass Index (BMI) 24.5 Physical Exam Const alert, oriented x3, no apparent distress and healthy appearing General Appearance: cooperative GI normal to inspection, nondistended, normoactive bowel sounds, soft to palpation,non-tender and non-distended Percussion: normal to percussion Rectal Exam: deferred Results Lab / Micro Data Labs: Laboratory Results - last 24 hr 12/27/24 11:00: Urine Test Negative Assessment & Plan Assessment/Plan (1) Abdominal pain: (2) Bloating: PLAN: Assessment and Plan Assessment and Plan (1) Bloating: Status: Acute Plan: This is a 39 yo female pt here today for evaluation of bloating and abd pain. Ptstarted to notice these symptoms after eating about 6 months ago and since then it has progressed to her being bloated daily. She has heartburn on a regular basis typically in the evening. She denies constipation, diarrhea, blood in her stool or unintentional weight loss. She endorses a family hx of both celiac disease (sister) and colon cancer (father age 59). Due to her family hx and symptoms she will undergo EGD and colonoscopy. I have concern for celiac diseaseor inflammation in her upper GI tract. I will also order celiac panel, CBC and CMP. Pt agreeable to plan. -EGD and colonoscopy -Celiac panel -f/u after procures (2) Abdominal pain: Status: Acute Orders: Orders Celiac Disease Profile Today R10.9 - Unspecified abdominal pain, R14.0 - Abdominal distension (gaseous) CBC W/Diff, Automated Today R10.9 - Unspecified abdominal pain, R14.0 - Abdominal distension (gaseous) Comprehensive Metabolic Profil Today R10.9 - Unspecified abdominal pain, R14.0 - Abdominal distension (gaseous) 12/27/24 1143 <Electronically signed by Gabriel Meyer DO> Cosigner Signature (if applicable): CC: Dr. Fercho Lane MD; Gabriel Meyer DO~ Signed [facility] Work Phone: History of Present illness Narrative* This is a 36-year-old patient of anxiety depression Florencia thyroiditis vitamin D deficiency complaining arthralgia myalgia fatigue tired had some social some family issues diagnosis of mixed ADD ADHD with the major depressive disorder advised vitamin C vitamin D diet exercise yoga social serviceevaluation psychological evaluations given Trintellix 5 mg a day for 2 weeks then 10 mg a day for 30 weeks and follow-up in a 30 weeks if problems continue does not get any better get a psych evaluations * Negative for COVID-19 * Negative for suicide [facility] Work Phone: History of Present illness Narrative* This is a 36-year-old patient of anxiety depression Florencia thyroiditis vitamin D deficiency complaining arthralgia myalgia fatigue tired had some social some family issues diagnosis of mixed ADD ADHD with the major depressive disorder advised vitamin C vitamin D diet exercise yoga social serviceevaluation psychological evaluations given Trintellix 5 mg a day for 2 weeks then 10 mg a day for 30 weeks and follow-up in a 30 weeks if problems continue does not get any better get a psych evaluations * Negative for COVID-19 * Negative for suicide [facility] Work Phone: History of Present illness Narrative* 37-year-old patient with history of hypothyroidism anxiety depression lipidemia has seen multiple thyroiditis complaining of flulike symptoms associated with fever chills nausea vomiting without any diarrhea * Onset acutely duration 72-hour progress intermittently nobody sick at home * Negative for * Negative for hypoxia * Negative for loss of taste or smell. [facility] Work Phone: Reason for referral (narrative)No reason for referral information [facility] Work [facility]: Summary Purpose Family History Unknown Family Member Name Dates Details Family history of thyroid di sease: Mother(V18.19, Z83.49) Status:Active Family history of diabetes m ellitus: Sibling(V18.0, Z83.3) Status:Active Unknown Family Member Name Dates Details Family history of thyroid di sease: Mother(V18.19, Z83.49) Status:Active Family history of diabetes m ellitus: Sibling(V18.0, Z83.3) Status:Active Unknown Family Member Name Dates Details Family history of thyroid di sease: Mother(V18.19, Z83.49) Status:Active Family history of diabetes m ellitus: Sibling(V18.0, Z83.3) Status:Active Unknown Family Member Name Dates Details Family history of thyroid di sease: Mother(V18.19, Z83.49) Status:Active Family history of diabetes m ellitus: Sibling(V18.0, Z83.3) Status:Active Unknown Family Member Name Dates Details Family history of thyroid di sease: Mother(V18.19, Z83.49) Status:Active Family history of diabetes m ellitus: Sibling(V18.0, Z83.3) Status:Active Unknown Family Member Name Dates Details Family history of thyroid di sease: Mother(V18.19, Z83.49) Status:Active Family history of diabetes m ellitus: Sibling(V18.0, Z83.3) Status:Active Unknown Family Member Name Dates Details Family history of thyroid di sease: Mother(V18.19, Z83.49) Status:Active Family history of diabetes m ellitus: Sibling(V18.0, Z83.3) Status:Active Unknown Family Member Name Dates Details Family history of diabetes m ellitus: Sibling(V18.0, Z83.3) Status:Active Family history of thyroid di sease: Mother(V18.19, Z83.49) Status:Active Unknown Family Member Name Dates Details Family history of thyroid di sease: Mother(V18.19, Z83.49) Status:Active Family history of diabetes m ellitus: Sibling(V18.0, Z83.3) Status:Active Unknown Family Member Name Dates Details Family history of diabetes m ellitus: Sibling(V18.0, Z83.3) Status:Active Family history of thyroid di sease: Mother(V18.19, Z83.49) Status:Active Unknown Family Member Name Dates Details Family history of thyroid di sease: Mother(V18.19, Z83.49) Status:Active Family history of diabetes m ellitus: Sibling(V18.0, Z83.3) Status:Active Unknown Family Member Name Dates Details Family history of diabetes m ellitus: Sibling(V18.0, Z83.3) Status:Active Family history of thyroid di sease: Mother(V18.19, Z83.49) Status:Active Unknown Family Member Name Dates Details Family history of thyroid di sease: Mother(V18.19, Z83.49) Status:Active Family history of diabetes m ellitus: Sibling(V18.0, Z83.3) Status:Active Unknown Family Member Name Dates Details Family history of thyroid di sease: Mother(V18.19, Z83.49) Status:Active Family history of diabetes m ellitus: Sibling(V18.0, Z83.3) Status:Active Unknown Family Member Name Dates Details Family history of thyroid di sease: Mother(V18.19, Z83.49) Status:Active Family history of diabetes m ellitus: Sibling(V18.0, Z83.3) Status:Active Advance Directives Advance Directive Response Recorded Date/ Time Do you have a Healthcare Power of Ground Products Director? No December 25, 2024 3:07pm Chief Complaint * she doesn t feel right * she feels cloudy * no energy * cries all the time * fatigue for the last month now * she doesn t feel right * she feels cloudy * no energy * cries all the time * fatigue for the last month now * A telephone visit (audio only) between the patient (at the originating site) and the provider (at the distant site) was utilized to provide this telehealth service. * fever, vomiting Reason for Referral Specialty Diagnoses / Procedures Referred By Edita t Referred To Contact Radiology Diagnoses Intractable cluster headache syndrome, unspecified chronicity pattern Procedures CT head wo IV contrast Fercho Lane MD [address] [place] [address] Referral ID Status Reason Start Date Expiration Date Visits Requested Visits Authorized [id number] Authorized Perform Procedure 12/22/2023 12/21/2024 1 1 Chief Complaint and Reason for Visit Chief Complaint Admit Date Bloating after eating November 01, 2024 3:25 pm INT LAB ORDERS November 01, 2024 4:03pm Reason for Visit Admit Date Abdominal pain November 01, 2024 3:25pm Bloating November 01, 2024 3:25pm Abdominal pain December 27, 2024 10:5 0am Bloating December 27, 2024 10:5 0am Additional Source Comments INFORMATION SOURCE (unrecogn ized section and content) DATE CREATED AUTHOR 05/15/2019 [facility] DATE CREATED AUTHOR AUTHOR'S ORGANIZ ATION 08/14/2019 [facility] DATE CREATED AUTHOR AUTHOR'S ORGANIZ ATION 08/16/2019 [facility] DATE CREATED AUTHOR AUTHOR'S ORGANIZ ATION 06/01/2022 [facility] DATE CREATED AUTHOR AUTHOR'S ORGANIZ ATION 06/01/2022 [employer] DATE CREATED AUTHOR AUTHOR'S ORGANIZ ATION 12/28/2022 [facility] DATE CREATED AUTHOR AUTHOR'S ORGANIZ ATION 12/24/2023 [facility] DATE CREATED AUTHOR AUTHOR'S ORGANIZ ATION 12/24/2023 [facility] DATE CREATED AUTHOR AUTHOR'S ORGANIZ ATION 01/25/2024 [facility] DATE CREATED AUTHOR AUTHOR'S ORGANIZ ATION 12/26/2024 [facility] Source Comments (unrecognize d section and content) In the event this informatio n is protected by the Federal Confidentiality of Alcohol and Drug Abuse Patient Records regulations: The Federal rules restrict any use of the information to criminally investigate or prosecute any alcohol or drug abuse patient.[facility] Reason for Visit (unrecogniz ed section and content) Reason Comments Yearly Exam Reason Comments Sinusitis 4 days now Follow-up She thinks that her thyroid is off Specialty Diagnoses / Procedures Referred By Edita richards Referred To Contact Radiology Diagnoses Intractable cluster headache syndrome, unspecified chronicity pattern Procedures CT head wo IV contrast Fercho Lane MD [address] [place] [address] Referral ID Status Reason Start Date Expiration Date Visits Requested Visits Authorized [id number] Authorized Perform Procedure 12/22/2023 12/21/2024 1 1 Care Teams (unrecognized sec tion and content) Lockstitch Front Maker Relationship Specialty Start Date End Date Rhiannon Montilla MD [address] [address] PCP - General Family Medicine 07/23/19 [employer]ch Front Maker Relationship Specialty Start Date End Date Fercho Lane MD [address] [address] PCP - General 01/01/[address] MD [address] [address] PCP - MMO ACO PCP 10/02/21 [employer]ch Front Maker Relationship Specialty Start Date End Date Fercho Lane MD [address] [place] [address] PCP - General Internal Medicine 08/15/23 Team Status: Active Member Role Status Dates Dr. Fercho Lane MD Primary Care Provider Active Team Status: Inactive Member Role Status Dates KARTHIKEYAN Valenzuela Attending Provider Active Start: November 01, 2024 End: November 01, 2024 Team Status: Inactive Member Role Status Dates Dr. Fercho Lane MD Primary Care Provider Active Start: November 01, 2024 End: November 01, 2024 KARTHIKEYAN Valenzuela Attending Provider Active Start: November 01, 2024 End: November 01, 2024 KARTHIKEYAN Valenzuela Referring Provider Active Start: November 01, 2024 End: November 01, 2024 Team Status: Inactive Member Role Status Dates Dr. Fercho Lane MD Primary Care Provider Active Start: December 27, 2024 End: December 27, [address] MD Referring Provider Active Start: December 27, 2024 End: December 27, 2024 Dr. Gabriel Meyer DO Attending Provider Active Start: December 27, 2024 End: December 27, 2024 Team Status: Active Member Role Status Dates Dr. Fercho Lane MD Primary Care Provider Active Start: December 27, [address] MD Referring Provider Active Start: December 27, 2024 Dr. Gabriel Meyer DO Attending Provider Active Start: December 27, 2024 Dr. Gabriel Meyer DO Other Provider Active St art: December 27, 2024 FOR RECORDS PERTAINING TO PATIENTS WHO ARE OR HAVE BEEN ENROLLED IN A CHEMICAL DEPENDENCY/SUBSTANCEABUSE PROGRAM, SOME INFORMATION MAY BE OMITTED. This clinical summary was aggregated from multiple sources. Caution should be exercised in using it in the provision of clinical care. This summary normalizes information from multiple sources, and as a consequence, information in this document may materially change the coding, format and clinical context of patient data. In addition, data may be omitted in some cases. CLINICAL DECISIONS SHOULD BE BASED ON THE PRIMARY CLINICAL RECORDS. [employer] provides no warranty or guarantee of the accuracy or completeness of information in this document.
== END 2024-12-27 13:39 | disposition home or self-care (01) ==
LOC: EN 10:53 → AC 10:54
PROVIDERS: Anesthesiology; PCP Internal Medicine; Referring Provider Internal Medicine; Visit Provider Internal Medicine Gastroenterology
PROC: 0DJD8ZZ Inspection of Lower Intestinal Tract, Via Natural or Artificial Opening Endoscopic (ICD-10-PCS; CPT 45378; principal; 2024-12-27 11:55)
DX: K31.89 Other diseases of stomach and duodenum (principal); R10.9 Unspecified abdominal pain; R11.0 Nausea; R14.0 Abdominal distension (gaseous); Z80.0 Family history of malignant neoplasm of digestive organs; E07.9 Disorder of thyroid, unspecified; F41.9 Anxiety disorder, unspecified; Z79.890 Hormone replacement therapy; Z79.899 Other long term (current) drug therapy
CPT/HCPCS: 45380; 43239; 81025; 88305